=== PATIENT | male | born 1955 | race African-American/Black ===

== ENCOUNTER 2017-09-11 08:30 | Day surgery (SDC) | payer OTHER ==
[2017-09-06 16:54] VITALS: BMI 34.2
[2017-09-11] MEDS ORDERED: PROPOFOL 20 ML ONE ×3 (08:53→09:58)
[2017-09-11 09:03] VITALS: TEMP 98.2
[2017-09-11] MEDS ORDERED: LIDOCAINE HCL/PF 2% SDV 5ML VIAL ONE (09:58)
[2017-09-11 13:41] VITALS: BP 111/84; PULSE 69
--- NOTE | 2017-09-12 16:03 | PATH ---
Surgical Pathology Report Patient Name: ALVAREZ PEGUERO [facility]. Rec. #: [id number] /Age/Gender: 1955 (Age: 61) / M Account: [id number] Location: [facility]OSCOPY Taken: 09/11/2017 Received: 09/11/2017 Reported: 09/12/2017 Physicians: Chante Richards M.D. Specimen(s) Received A: SIGMOID B: RECTOSIGMOID JUNCTION Clinical History Preoperative diagnosis: Rule out colon cancer Postoperative diagnosis: Polyps Final Diagnosis A. SIGMOID, BIOPSY: HYPERPLASTIC POLYP. B. RECTOSIGMOID JUNCTION, BIOPSY: HYPERPLASTIC POLYP. Electronically Signed Denise Farrar M.D. Gross Description A. Received in formalin, labeled "sigmoid" is a mahoney, irregular portion of soft tissue measuring 0.5 cm. in greatest dimension. The specimen is submitted in toto in one cassette. B. Received in formalin, labeled "rectosigmoid junction" are 4 mahoney, irregular portions of soft tissue ranging from 0.2-0.6 cm. in greatest dimension. The specimens are submitted in toto in one cassette. 09/11/2017 saudi09/11/2017
== END 2017-09-11 11:25 | disposition home or self-care (01) ==
LOC: FASU-ENDO 08:30
PROVIDERS: ATTEND Internal Medicine Gastroenterology
PROC: 0DBN8ZX Excision of Sigmoid Colon, Via Natural or Artificial Opening Endoscopic, Diagnostic (ICD-10-PCS; principal; 2017-09-11 10:07)
DX: Z86.010 Personal history of colon polyps (principal); D12.7 Benign neoplasm of rectosigmoid junction; D12.5 Benign neoplasm of sigmoid colon; K64.2 Third degree hemorrhoids; K57.30 Diverticulosis of large intestine without perforation or abscess without bleeding
CPT/HCPCS: 88305-TC

== ENCOUNTER 2017-12-23 15:10 | Inpatient (IN) | payer OTHER ==
--- NOTE | 2017-12-23 15:38 | PDOC ---
Rapid Medical Evaluation Time Seen by Provider: 12/23/17 15:36 Medical Evaluation: Allergies Allergy/AdvReac Type Severity Reaction Status Date / Time No Known Allergies Allergy Verified 12/23/17 15:36 12/23/17 15:36 The patient presents with a chief complaint of: dyspnea I have performed a brief in-person evaluation of this patient. Pertinent physical exam findings: vss, mildly dyspnea, wheezy cough, irreg pulse I have ordered the following: labs, ekg The patient will proceed to the ED for further evaluation. 12/23/17 15:42 Discharge Disposition - Referrals Referrals: Peña Wu MD [Primary Care Provider] - - Patient Instructions - Post Discharge Activity
[2017-12-23] MEDS ORDERED: dilTIAZem HCL 125 MG/25 ML - 25 ML VIAL ONE ×3 (16:05→22:16)
[2017-12-23 16:17] LABS: BASO % 0.8 % (0-2.0); HEMATOCRIT 45.9 % (35.4-49); HEMOGLOBIN 15.2 GM/dL (11.7-16.9); LYMPH % 15.2 % (8-40); MCH 24.7 pg (25.7-33.7); MCHC 33.2 g/dl (32.0-35.9); MEAN CELL VOLUME 74.3 fl (80-96); MONO % 13.5 % (3.8-10.2); NEUT % 69.5 % (42.8-82.8); PLATELET COUNT 281 K/MM3 (134-434); RBC 6.17 M/mm3 (4.00-5.60); RDW 15.2 % (11.9-15.9); WHITE BLOOD COUNT 7.5 K/mm3 (4.0-10.0)
[2017-12-23] MEDS ORDERED: dilTIAZem HCL 30 MG TABLET (FP) ONE (16:21)
[2017-12-23] MEDS ORDERED: dilTIAZem HCL 50 MG/10 ML - 10 ML VIAL IVPUSH ONE ×4 (16:25→17:15)
[2017-12-23] MEDS ORDERED: dilTIAZem HCL 30 MG TABLET (FP) PO ONE (16:25)
[2017-12-23] MEDS ORDERED: dilTIAZem HCL 50 MG/10 ML - 10 ML VIAL IVPUSH PRN (16:25)
[2017-12-23 16:45] LABS: INR 1.18 (0.82-1.09); PROTHROMBIN TIME (PATIENT) 13.3 SEC (9.98-11.88)
[2017-12-23 16:48] LABS: ACTIVATED PTT 28.9 SECONDS (26.9-34.4)
[2017-12-23 17:01] LABS: ALBUMIN 3.5 g/dl (3.4-5.0); ANION GAP 8 (8-16); BILIRUBIN,TOTAL 0.7 mg/dL (0.2-1.0); BLOOD UREA NITROGEN 20 mg/dL (7-18); CHLORIDE 106 mmol/L (98-107); CO2 28 mmol/L (21-32); CREATININE 1.4 mg/dL (0.7-1.3); GLUCOSE,RANDOM 106 mg/dL (74-106); SGPT/ALT 54 U/L (12-78); SODIUM 142 mmol/L (136-145); TOT PROT 7.9 g/dl (6.4-8.2)
[2017-12-23 17:04] LABS: ALK PHOS 104 U/L (45-117)
--- NOTE | 2017-12-23 17:07 | PDOC ---
Attending Attestation - Resident Resident Name: JetNorman stewart - HPI HPI: 12/23/17 17:02 Pt presents to the ED complaining of shortness of breath that has been intermittent for two days. Shortness of breath is worse with exertion and laying flat. Denies fever or cough. Denies prior history of ACS, a fib or CHF. Reports intermittent palpitations for the last month. 12/23/17 17:04 - Physicial Exam PE: 12/23/17 17:04 Agree with resident exam. Patient is alert and oriented x 3 in no acute distress. Lungs are clear. Heart rate is irregular and tachycardic. - Medical Decision Making 12/23/17 17:05 Pt presents to the ED complaining of shortness of breath and palpitations. Found to be in a fib on arrival to the ED--improved after treatment with IV cardizem. Will admit to obs for new onset A fib.
[2017-12-23 17:14] LABS: POTASSIUM 3.3 mmol/L (3.5-5.1); SGOT/AST 39 U/L (15-37)
--- NOTE | 2017-12-23 17:15 | PDOC ---
History of Present Illness - General Chief Complaint: Irregular Heart Beat Stated Complaint: SOB, ABD PAIN (PCP SENT) Time Seen by Provider: 12/23/17 15:36 History Source: Patient Exam Limitations: No Limitations - History of Present Illness Initial Comments: 12/23/17 17:11 Patient is a 62M with history of HTN here today complaining of shortness of breath. He states that he's had palpitations on and off for the past month. Denies chest pain, history of blood clots and leg swelling. He states that he's had a cough without fever and chills. He denies history of cardiac issues. He denies trying any medication. Past History - Past Medical History Allergies/Adverse Reactions: Allergies Allergy/AdvReac Type Severity Reaction Status Date / Time No Known Allergies Allergy Verified 12/23/17 15:36 Home Medications: Ambulatory Orders Amlodipine Besylate 10 mg PO DAILY 09/06/17 Losartan Potassium 50 mg PO DAILY 09/11/17 Anemia: No Asthma: No Cancer: Yes (PROSTATE 2005) Cardiac Disorders: No CVA: No COPD: No CHF: No Dementia: No Diabetes: No GI Disorders: No Disorders: No HTN: Yes Hypercholesterolemia: No Liver Disease: No Seizures: No Thyroid Disease: No - Surgical History Abdominal Surgery: Yes (HERNIA REPAIR 2009) Appendectomy: No Cardiac Surgery: No Cholecystectomy: No Lung Surgery: No Neurologic Surgery: No Orthopedic Surgery: No - Immunization History Immunization Up to Date: Yes - Suicide/Smoking/Psychosocial Hx Smoking History: Former smoker Have you smoked in the past 12 months: No If you are a former smoker, when did you quit?: 1989 Information on smoking cessation initiated: No Hx Alcohol Use: Yes (weekends) Drug/Substance Use Hx: No Substance Use Type: None Hx Substance Use Treatment: No Review of Systems - Review of Systems Comments:: 12/23/17 17:24 GENERAL/CONSTITUTIONAL: No fever or chills. No weakness. HEAD, EYES, EARS, NOSE AND THROAT: No change in vision. No sore throat. CARDIOVASCULAR: No chest pain. Positive for shortness of breath RESPIRATORY: Positive for cough. Negative for wheezing, or hemoptysis. GASTROINTESTINAL: No nausea, vomiting, diarrhea or constipation. GENITOURINARY: No dysuria, frequency, or change in urination. MUSCULOSKELETAL: No joint or muscle swelling or pain. No neck or back pain. SKIN: No rash NEUROLOGIC: No headache, vertigo, loss of consciousness, or change in strength/ sensation. ENDOCRINE: No increased thirst. No abnormal weight change HEMATOLOGIC/LYMPHATIC: No anemia, easy bleeding, or history of blood clots. *Physical Exam - Vital Signs Last Vital Signs Temp Pulse Resp BP Pulse Ox 98.0 F 103 H 20 130/100 94 L 12/23/17 15:36 12/23/17 16:34 12/23/17 16:34 12/23/17 16:34 12/23/17 16:34 - Physical Exam Comments: 12/23/17 17:29 GENERAL: Awake, alert, and fully oriented, in no acute distress HEAD: No signs of trauma, normocephalic, atraumatic EYES: PERRLA, EOMI, sclera anicteric, conjunctiva clear ENT: Auricles normal inspection, hearing grossly normal, nares patent, oropharynx clear without exudates. Moist mucosa NECK: Normal ROM, supple, no lymphadenopathy, JVD, or masses LUNGS: No distress, speaks full sentences, clear to auscultation bilaterally HEART: Tachycardic, no murmurs, rubs or gallops, peripheral pulses normal and equal bilaterally. ABDOMEN: Soft, nontender, normoactive bowel sounds. No guarding, no rebound. No masses EXTREMITIES: Normal inspection, Normal range of motion, trace edema bilaterally. No clubbing or cyanosis. NEUROLOGICAL: Cranial nerves II through XII grossly intact. Normal speech, normal gait, no focal sensorimotor deficits SKIN: Warm, Dry, normal turgor, no rashes or lesions noted. ED Treatment Course - LABORATORY CBC & Chemistry Diagram: 12/23/17 16:10 12/23/17 16:10 - ADDITIONAL ORDERS Additional order review: Laboratory Results 12/23/17 16:10 PT with INR 13.30 H INR 1.18 H PTT (Actin FS) 28.9 12/23/17 16:10 RBC 6.17 H MCV 74.3 L MCHC 33.2 RDW 15.2 MPV 10.0 D Neutrophils % 69.5 Lymphocytes % 15.2 Monocytes % 13.5 H Eosinophils % 1.0 Basophils % 0.8 - Medications Given in the ED: ED Medications Discontinued Medications Generic Name Dose Route Start Last Admin Trade Name Freq PRN Reason Stop Dose Admin Diltiazem HCl 30 mg 12/23/17 16:25 12/23/17 16:31 Cardizem - PO 12/23/17 16:26 30 mg ONCE ONE Administration Diltiazem HCl 10 mg 12/23/17 16:25 12/23/17 16:20 Cardizem Injection - IVPUSH 12/23/17 16:26 10 mg ONCE ONE Administration Diltiazem HCl 10 mg 12/23/17 16:26 12/23/17 16:00 Cardizem Injection - IVPUSH 12/23/17 16:27 10 mg ONCE ONE Administration Medical Decision Making - Critical Care Time Total Critical Care Time (minutes): 60 Critical Care Statement: The care of this patient involved high complexity decision making to prevent further life threatening deterioration of the patient 's condition and/or to evaluate & treat vital organ system(s) failure or risk of failure. - Medical Decision Making 12/23/17 17:30 Patient is a 62M with history of HTN here today complaining of shortness of breath. Found to be in afib with RVR in triage. Initial EKG shows afib with RVR with rate of 119bpm. Large Q waves in anterior leads, new when compared to EKG from 02/05. Questionable ST changes in V2/V3. Diltiazem 10mg x2 given. Rate dropped to 90s-100s. Given 30mg of PO dilt Follow up EKG shows afib with rate of 102. Large q waves in anterior leads still present, st changes improved, appears now to be repolarization. Normal QRS /DC/QTc intervals. Posterior EKG done due to Q wave changes in anterior leads. V3, V4, V5 = V7, V8 , V9. Shows afib with rate of 107. No st elevations/depression. Normal QRS/DC/ QTc. Patient's rate spiked to 130, given another 10mg of diltiazem. Rates in 90s to 100s. Will continue to monitor. Will admit for new onset afib and ischemic changes in EKGs. 12/23/17 17:46 Laboratory Tests 12/23/17 12/23/17 12/23/17 16:10 16:10 16:10 WBC 7.5 Hgb 15.2 Hct 45.9 Plt Count 281 D INR 1.18 H BUN 20 H D Creatinine 1.4 H D Troponin I 0.03 CBC normal. INR normal. CMP reassuring. Troponin detectable but below threshold. CXR shows pulmonary vascular congestion and small pleural effusions bilaterally. 12/23/17 20:18 Patient tachypneic after walking to bathroom, wheezes bilaterally. Given duoneb. patient improving. *DC/Admit/Observation/Transfer Diagnosis at time of Disposition: New onset a-fib - Discharge Dispostion Condition at time of disposition: Stable Admit: Yes - Referrals - Patient Instructions - Post Discharge Activity
--- NOTE | 2017-12-23 18:35 | HP ---
CHIEF COMPLAINT: Shortness of breath PCP: Dr. Wu HISTORY OF PRESENT ILLNESS: 62 year-old male with a PMH significant for HTN, prostate cancer s/p prostatectomy (2007), and brain AVM s/p repair (2000). Patient presented to the ED today with complaints of SOB and palpitations x 1 month. Patient noticed a 10 -pound weight gain over the past week and his SOB has gotten worse. He has been unable to lie flat and he has noticed decrease exercise tolerance. Patient denies chest pain, lower extremity edema. ER course was notable for: (1) ECG: afib @119bpm (2) K 3.3 Recent Travel: No PAST MEDICAL HISTORY: Hypertension Prostate cancer Brain AVM PAST SURGICAL HISTORY: AVM stereotactic surgery 2000 Prostatectomy 2005 Hernia repair 2009 Social History: Smoking:d quit 20 years ago Alcohol: weekends Drugs: no Family History: mother 86 CHF; father 80 unknown causes but had a PPM ; brother with AICD; brother with HTN Allergies No Known Allergies Allergy (Verified 12/23/17 15:36) HOME MEDICATIONS: Home Medications Medication Instructions Recorded Amlodipine Besylate 10 mg PO DAILY 09/06/17 Losartan Potassium 50 mg PO DAILY 09/11/17 REVIEW OF SYSTEMS CONSTITUTIONAL: Absent: fever, chills, diaphoresis, generalized weakness, malaise, loss of appetite, weight change HEENT: Absent: rhinorrhea, nasal congestion, throat pain, throat swelling, difficulty swallowing, mouth swelling, ear pain, eye pain, visual changes CARDIOVASCULAR: +palpitations, SOB, weight gain Absent: chest pain, syncope, palpitations, irregular heart rate, lightheadedness , peripheral edema RESPIRATORY: Absent: cough, shortness of breath, dyspnea with exertion, orthopnea, wheezing, stridor, hemoptysis GASTROINTESTINAL: Absent: abdominal pain, abdominal distension, nausea, vomiting, diarrhea, constipation, melena, hematochezia GENITOURINARY: Absent: dysuria, frequency, urgency, hesitancy, hematuria, flank pain, genital pain MUSCULOSKELETAL: Absent: myalgia, arthralgia, joint swelling, back pain, neck pain SKIN: Absent: rash, itching, pallor HEMATOLOGIC/IMMUNOLOGIC: Absent: easy bleeding, easy bruising, lymphadenopathy, frequent infections ENDOCRINE: Absent: unexplained weight gain, unexplained weight loss, heat intolerance, cold intolerance NEUROLOGIC: Absent: headache, focal weakness or paresthesias, dizziness, unsteady gait, seizure, mental status changes, bladder or bowel incontinence PSYCHIATRIC: Absent: anxiety, depression, suicidal or homicidal ideation, hallucinations. PHYSICAL EXAMINATION Vital Signs - 24 hr 12/23/17 12/23/17 12/23/17 15:36 16:00 16:20 Temperature 98.0 F Pulse Rate 110 H Pulse Rate [ 150 H 124 H Left] Respiratory 18 18 18 Rate Blood Pressure 128/81 Blood Pressure 117/94 111/88 [Right] O2 Sat by Pulse 95 95 Oximetry (%) 12/23/17 12/23/17 12/23/17 16:25 16:34 17:18 Temperature Pulse Rate Pulse Rate [ 103 H 115 H Left] Respiratory 20 18 Rate Blood Pressure Blood Pressure 130/100 122/97 [Right] O2 Sat by Pulse 95 94 L 95 Oximetry (%) GENERAL: Awake, alert, and fully oriented HEAD: Normal with no signs of trauma. EYES: Pupils equal, round and reactive to light, extraocular movements intact, sclera anicteric, conjunctiva clear. No lid lag. EARS, NOSE, THROAT: Ears normal, nares patent, oropharynx clear without exudates. Moist mucous membranes. NECK: Normal range of motion, supple without lymphadenopathy, JVD, or masses. LUNGS: Dyspneic with speaking; CTA HEART: Irregular, rapid, S1 and S2 ABDOMEN: Soft, nontender, not distended, normoactive bowel sounds, no guarding, no rebound, no masses. MUSCULOSKELETAL: Normal range of motion at all joints. No bony deformities or tenderness. No CVA tenderness. UPPER EXTREMITIES: 2+ pulses, warm, well-perfused. No cyanosis. No clubbing. No peripheral edema. LOWER EXTREMITIES: 2+ pulses, warm, well-perfused. No calf tenderness. 3+ bilateral edema NEUROLOGICAL: Cranial nerves II-XII intact. Normal speech. Laboratory Results - last 24 hr 12/23/17 12/23/17 12/23/17 16:10 16:10 16:10 WBC 7.5 RBC 6.17 H Hgb 15.2 Hct 45.9 MCV 74.3 L MCH 24.7 L MCHC 33.2 RDW 15.2 Plt Count 281 D MPV 10.0 D Neutrophils % 69.5 Lymphocytes % 15.2 Monocytes % 13.5 H Eosinophils % 1.0 Basophils % 0.8 PT with INR 13.30 H INR 1.18 H PTT (Actin FS) 28.9 Sodium 142 Potassium 3.3 L Chloride 106 Carbon Dioxide 28 Anion Gap 8 BUN 20 H D Creatinine 1.4 H D Creat Clearance w eGFR 51.35 Random Glucose 106 D Calcium 9.0 Total Bilirubin 0.7 D AST 39 H ALT 54 D Alkaline Phosphatase 104 Troponin I 0.03 Total Protein 7.9 Albumin 3.5 ASSESSMENT/PLAN: 62 year-old male with a PMH significant for HTN, prostate cancer s/p prostatectomy and brain AVM s/p repair. Patient presented to the ED today with complaints of SOB and palpitations x 1 month. Patient noticed a 10-pound weight gain over the past week and his SOB has gotten worse. Patient denies chest pain , lower extremity edema. Atrial fibrillation with RVR --rate in 140s after cardizem IVP x 3 and PO dose --symptomatic, SOB, 92% on NC --start cardizem drip --enoxaparin BID Heart failure, NOS --patient reports 10-pound weight gain over past week --Lasix IVP 40mg BID --PA & lateral pending --echo pending --cardiology consult Elevated creatinine --Cr 1.4 on admission, 1.3 today, baseline 1.1 --continue to hold losartan Hypertension --presently normotensive --hold amlodipine Hypokalemia --repleted FEN Fluids: PO intake adequate Electrolytes: replete as indicated Nutrition: low sodium DVT prophylaxis: enoxaparin Physical therapy Dispo: continues to require inpatient care. Full code. Visit type - Emergency Visit Emergency Visit: Yes ED Registration Date: 12/23/17 Care time: The patient presented to the Emergency Department on the above date and was hospitalized for further evaluation of their emergent condition. - New Patient This patient is new to me today: Yes Date on this admission: 12/24/17 - Critical Care Critical Care patient: No Hospitalist Screening - Colonoscopy Questionnaire Colonoscopy Questionnaire: Colonoscopy Questionnaire - Patient: 50 - 75 years old and never had a screening colonoscopy: Unknown History of colon or rectal polyps, or CA: Unknown History of IBD, Crohn's disease or UC: Unknown History of abdominal radiation therapy as a child: Unknown - Relative: 1 with colon or rectal CA, or polyps at age 60 or younger: Unknown Colon or rectal CA diagnosed at age 45 or younger: Unknown Multiple relatives with colon or rectal CA: Unknown - Outcome: Screening Result: Negative Screen
[2017-12-23] MEDS ORDERED: FUROSEMIDE 40 MG/4 ML INJECTABLE VIAL IVPUSH SCH (18:45)
[2017-12-23] MEDS ORDERED: ALBUTEROL SO4 2.5/IPRATROPIUM 0.5 INH SOL 3 ML VIAL.NEB. NEB ONE ×2 (20:09→20:15)
[2017-12-23] MEDS ORDERED: POTASSIUM CHLORIDE TABS 20 MEQ TABLET.ER (FP) PO ONE (20:15)
[2017-12-23] MEDS ORDERED: FUROSEMIDE 40 MG/4 ML INJECTABLE VIAL ONE ×2 (20:16→22:16)
[2017-12-23] MEDS: POTASSIUM CHLORIDE TABS 20 MEQ TABLET.ER (FP) PO SCH (20:46)
[2017-12-23] MEDS ORDERED: FUROSEMIDE 40 MG/4 ML INJECTABLE VIAL IVPUSH ONE (21:57)
[2017-12-23] MEDS ORDERED: DILTIAZEM INJECTION 125 MG in SODIUM CHLORIDE 100 ML IVPB SCH (22:00)
[2017-12-23] MEDS ORDERED: dilTIAZem HCL 50 MG/10 ML - 10 ML VIAL ONE (22:16)
[2017-12-23] MEDS ORDERED: ENOXAPARIN NA (PORCINE) 60 MG/0.6 ML DISP.SYRIN SQ ONE (22:17)
[2017-12-23] MEDS: ENOXAPARIN NA (PORCINE) 120 MG/0.8 ML DISP.SYRIN SQ SCH (22:41)
[2017-12-24] MEDS: POTASSIUM CHLORIDE TABS 20 MEQ TABLET.ER (FP) PO SCH ×5 (02:45→20:26)
[2017-12-24 06:16] LABS: BASO % 0.4 % (0-2.0); EOS % 0.1 % (0-4.5); HEMATOCRIT 40.9 % (35.4-49); HEMOGLOBIN 13.7 GM/dL (11.7-16.9); MCHC 33.6 g/dl (32.0-35.9); MEAN CELL VOLUME 74.4 fl (80-96); MEAN PLT VOLUME 10.3 fl (7.5-11.1); MONO % 9.5 % (3.8-10.2); PLATELET COUNT 258 K/MM3 (134-434); RDW 15.4 % (11.9-15.9); WHITE BLOOD COUNT 10.7 K/mm3 (4.0-10.0)
[2017-12-24] MEDS: FUROSEMIDE 40 MG/4 ML INJECTABLE VIAL IVPUSH SCH ×2 (06:23→14:25)
[2017-12-24] MEDS ORDERED: POTASSIUM CHLORIDE TABS 20 MEQ TABLET.ER (FP) PO ONE ×2 (06:24→07:50)
[2017-12-24] MEDS ORDERED: FUROSEMIDE 40 MG/4 ML INJECTABLE VIAL ONE (06:24)
[2017-12-24 06:32] LABS: CHLORIDE 109 mmol/L (98-107); POTASSIUM 3.1 mmol/L (3.5-5.1); SODIUM 145 mmol/L (136-145)
[2017-12-24 06:41] LABS: ALBUMIN 3.2 g/dl (3.4-5.0); ALK PHOS 89 U/L (45-117); ANION GAP 8 (8-16); BILIRUBIN,TOTAL 0.9 mg/dL (0.2-1.0); BLOOD UREA NITROGEN 18 mg/dL (7-18); CALCIUM 8.2 mg/dL (8.5-10.1); CO2 28 mmol/L (21-32); CREATININE 1.3 mg/dL (0.7-1.3); GLUCOSE,RANDOM 105 mg/dL (74-106); MAGNESIUM 1.6 mg/dL (1.8-2.4); PHOSPHOROUS 3.5 mg/dL (2.5-4.9); SGOT/AST 27 U/L (15-37); SGPT/ALT 43 U/L (12-78)
[2017-12-24] MEDS ORDERED: DILTIAZEM INJECTION 125 MG in DEXTROSE 5%-WATER - 100 ML IVPB SCH (07:30)
--- NOTE | 2017-12-24 09:30 | CON.CARD ---
Consult Consult Specialty:: Cardiology Referred by:: Evangelista Reason for Consultation:: afib elevated constantine, chf - History of Present Illness Chief Complaint: sob History of Present Illness: He is a 62 year-old male with a history of HTN, prostate cancer s/p prostatectomy (2007), brain AVM s/p repair (2000) who was admitted with complaints of SOB and palpitations x 1 month, weight gain, edema. No chest pain , orthopnea or PND. No palpitations, dizziness or syncope. Baseline exercise tolerance is good. Found to be in atrial fibrillation with RVR started on IV dilt. Also noted with elevated TnI. Denies chest pain. Elevated BNP getting IV lasix. Echo pending. - History Source History Provided By: Patient, Medical Record - Past Medical History Cardio/Vascular: Yes: HTN Heme/Onc: Yes: Cancer - Alcohol/Substance Use Hx Alcohol Use: Yes (weekends) - Smoking History Smoking history: Former smoker Have you smoked in the past 12 months: No If you are a former smoker, when did you quit?: 1989 Home Medications - Allergies Allergies/Adverse Reactions: Allergies Allergy/AdvReac Type Severity Reaction Status Date / Time No Known Allergies Allergy Verified 12/23/17 15:36 - Home Medications Home Medications: Ambulatory Orders Amlodipine Besylate 10 mg PO DAILY 09/06/17 Losartan Potassium 50 mg PO DAILY 09/11/17 Review of Systems - Review of Systems Constitutional: reports: No Symptoms Eyes: reports: No Symptoms HENT: reports: No Symptoms Neck: reports: No Symptoms Cardiovascular: reports: Shortness of Breath Respiratory: reports: SOB Gastrointestinal: reports: No Symptoms Genitourinary: reports: No Symptoms Breasts: reports: No Symptoms Reported Musculoskeletal: reports: No Symptoms Integumentary: reports: No Symptoms Neurological: reports: No Symptoms - Risk Factors Known Risk Factors: Yes: Hypertension Vital Signs: Vital Signs Temperature 98.6 F 12/24/17 08:42 Pulse Rate 94 H 12/24/17 08:42 Respiratory Rate 16 12/24/17 08:42 Blood Pressure 116/70 12/24/17 08:42 O2 Sat by Pulse Oximetry (%) 93 L 12/24/17 08:42 Constitutional: Yes: No Distress, Calm Eyes: Yes: Conjunctiva Clear, EOM Intact HENT: Yes: Atraumatic, Normocephalic Neck: Yes: Supple, Trachea Midline Respiratory: Yes: Rales (bilat bases) Gastrointestinal: Yes: Normal Bowel Sounds, Soft Renal/: Yes: WNL Cardiovascular: Yes: Pulse Irregular JVD: Yes Carotid Bruit: No PMI: Non-Displaced Heart Sounds: Yes: S1, S2 Murmur: Yes: Systolic Murmur, Grade 2 Musculoskeletal: Yes: WNL Extremities: Yes: WNL Edema: Yes Edema: LLE: Trace, RLE: Trace Peripheral Pulses WNL: Yes - Other Data Labs, Other Data: CBC, BMP 12/24/17 05:55 12/24/17 05:55 INR, PTT INR 1.18 (0.82-1.09) H 12/23/17 16:10 Troponin, BNP 12/23/17 12/23/17 12/23/17 16:10 22:45 22:45 Troponin I 0.03 Cancelled B-Natriuretic Peptide 1759.30 H 12/23/17 12/24/17 12/24/17 22:45 05:55 08:10 Troponin I 0.04 D 0.07 H D Cancelled B-Natriuretic Peptide 12/24/17 08:10 Troponin I 0.07 H B-Natriuretic Peptide Troponin, BNP 12/23/17 12/23/17 12/23/17 16:10 22:45 22:45 Troponin I 0.03 Cancelled B-Natriuretic Peptide 1759.30 H 12/23/17 12/24/17 12/24/17 22:45 05:55 08:10 Troponin I 0.04 D 0.07 H D Cancelled B-Natriuretic Peptide 12/24/17 08:10 Troponin I 0.07 H B-Natriuretic Peptide afib with RVR old ASMI Echo: Pending Imaging - Results Chest X-ray: Report Reviewed (chf, small bilat pl effusions.) EKG: Report Reviewed (af rvr old asmi) Problem List - Problems (1) New onset a-fib Assessment/Plan: Echo ordered. TFT's. Change IV diltiazem to PO dilt 30 q6h. Full dose enoxaparin 1 mg/kg bid, will use eliquis when stable. Code(s): I48.91 - UNSPECIFIED ATRIAL FIBRILLATION (2) Elevated troponin Assessment/Plan: Most likely demand ischemia. Needs eventual ischemia workup but needs rate control and echo first. add baby aspirin. Code(s): R74.8 - ABNORMAL LEVELS OF OTHER SERUM ENZYMES (3) Essential (primary) hypertension Assessment/Plan: Hold home medications for now. change to dilt 30 q6h, titrate as tolerated by bp and HR Code(s): I10 - ESSENTIAL (PRIMARY) HYPERTENSION (4) CHF (congestive heart failure) Assessment/Plan: lasix 40 mg IV daily daily wts fluid and salt restriction. echo pending. Code(s): I50.9 - HEART FAILURE, UNSPECIFIED Qualifiers: Heart failure type: diastolic Heart failure chronicity: acute Qualified Code(s): I50.31 - Acute diastolic (congestive) heart failure
[2017-12-24] MEDS: dilTIAZem HCL 30 MG TABLET (FP) PO SCH ×4 (09:56→23:05)
--- NOTE | 2017-12-24 10:10 | EKG ---
Test Reason : Blood Pressure : / mmHG Vent. Rate : 119 BPM Atrial Rate : 267 BPM P-R Int : 000 ms QRS Dur : 102 ms QT Int : 360 ms P-R-T Axes : 000 -41 113 degrees QTc Int : 506 ms POOR DATA QUALITY, INTERPRETATION MAY BE ADVERSELY AFFECTED ATRIAL FIBRILLATION WITH RAPID VENTRICULAR RESPONSE LEFT AXIS DEVIATION ANTERIOR INFARCT (CITED ON OR BEFORE 14-FEB-2016) ABNORMAL ECG WHEN COMPARED WITH ECG OF 14-FEB-2016 07:38, ATRIAL FIBRILLATION HAS REPLACED SINUS RHYTHM Confirmed by Mason Velazquez MD ([id number]) on 12/24/2017 10:10:38 AM Referred By: Confirmed By:Mason Velazquez MD
--- NOTE | 2017-12-24 10:10 | EKG ---
Test Reason : Blood Pressure : / mmHG Vent. Rate : 102 BPM Atrial Rate : 122 BPM P-R Int : 000 ms QRS Dur : 098 ms QT Int : 362 ms P-R-T Axes : 000 -39 156 degrees QTc Int : 471 ms ATRIAL FIBRILLATION WITH RAPID VENTRICULAR RESPONSE LEFT AXIS DEVIATION ANTEROSEPTAL INFARCT (CITED ON OR BEFORE 14-FEB-2016) ABNORMAL ECG WHEN COMPARED WITH ECG OF 23-DEC-2017 15:53, NO SIGNIFICANT CHANGE WAS FOUND Confirmed by Mason Velazquez MD ([id number]) on 12/24/2017 10:10:29 AM Referred By: Confirmed By:Mason Velazquez MD
[2017-12-24] MEDS ORDERED: PT OWN MED DRAWER 7, Y5N ONE (10:16)
[2017-12-24] MEDS: ENOXAPARIN NA (PORCINE) 120 MG/0.8 ML DISP.SYRIN SQ SCH ×2 (10:22→23:05)
[2017-12-24] MEDS: POLYETHYLENE GLYCOL 3350 119 GM BTL PO SCH ×2 (10:24→23:05)
[2017-12-24 12:05] VITALS: BMI 34.9
[2017-12-24] MEDS ORDERED: dilTIAZem HCL 30 MG TABLET (FP) ONE (12:18)
--- NOTE | 2017-12-24 15:27 | PN ---
Physical Exam: SUBJECTIVE: Patient seen and examined at bedside. Dr. Velazquez present. present. OBJECTIVE: Vital Signs Period Temp Pulse Resp BP Sys/Alexandra Pulse Ox Last 24 Hr 98.0 F-98.6 F 83-150 16-22 107-131/70-100 16-95 GENERAL: Awake, alert, and fully oriented. LUNGS: Bibasilar crackles; able to speak in complete sentences, no dyspnea observed, no accessory muscle use HEART: Irregular, rapid, S1 and S2 ABDOMEN: Soft, nontender, not distended, normoactive bowel sounds, no guarding, no rebound, no masses. MUSCULOSKELETAL: Normal range of motion at all joints. No bony deformities or tenderness. No CVA tenderness. UPPER EXTREMITIES: 2+ pulses, warm, well-perfused. No cyanosis. No clubbing. No peripheral edema. LOWER EXTREMITIES: 2+ pulses, warm, well-perfused. No calf tenderness. 3+ bilateral edema NEUROLOGICAL: Cranial nerves II-XII intact. Normal speech. Laboratory Results - last 24 hr 12/23/17 12/23/17 12/23/17 16:10 16:10 16:10 WBC 7.5 RBC 6.17 H Hgb 15.2 Hct 45.9 MCV 74.3 L MCH 24.7 L MCHC 33.2 RDW 15.2 Plt Count 281 D MPV 10.0 D Neutrophils % 69.5 Lymphocytes % 15.2 Monocytes % 13.5 H Eosinophils % 1.0 Basophils % 0.8 PT with INR 13.30 H INR 1.18 H PTT (Actin FS) 28.9 Sodium 142 Potassium 3.3 L Chloride 106 Carbon Dioxide 28 Anion Gap 8 BUN 20 H D Creatinine 1.4 H D Creat Clearance w eGFR 51.35 Random Glucose 106 D Calcium 9.0 Phosphorus Magnesium Total Bilirubin 0.7 D AST 39 H ALT 54 D Alkaline Phosphatase 104 Troponin I 0.03 B-Natriuretic Peptide Total Protein 7.9 Albumin 3.5 12/23/17 12/23/17 12/23/17 16:10 22:45 22:45 WBC RBC Hgb Hct MCV MCH MCHC RDW Plt Count MPV Neutrophils % Lymphocytes % Monocytes % Eosinophils % Basophils % PT with INR INR PTT (Actin FS) Sodium Potassium Chloride Carbon Dioxide Anion Gap BUN Creatinine Creat Clearance w eGFR Random Glucose Calcium Phosphorus Magnesium 2.2 Total Bilirubin AST ALT Alkaline Phosphatase Troponin I Cancelled B-Natriuretic Peptide 1759.30 H Total Protein Albumin 12/23/17 12/24/17 12/24/17 22:45 05:55 05:55 WBC 10.7 H D RBC 5.50 Hgb 13.7 Hct 40.9 MCV 74.4 L MCH 25.0 L MCHC 33.6 RDW 15.4 Plt Count 258 MPV 10.3 Neutrophils % 81.0 Lymphocytes % 9.0 D Monocytes % 9.5 Eosinophils % 0.1 D Basophils % 0.4 PT with INR INR PTT (Actin FS) Sodium 145 Potassium 3.1 L Chloride 109 H Carbon Dioxide 28 Anion Gap 8 BUN 18 Creatinine 1.3 Creat Clearance w eGFR 55.94 Random Glucose 105 Calcium 8.2 L Phosphorus 3.5 Magnesium 1.6 L D Total Bilirubin 0.9 D AST 27 D ALT 43 D Alkaline Phosphatase 89 Troponin I 0.04 D 0.07 H D B-Natriuretic Peptide Total Protein 7.0 Albumin 3.2 L 12/24/17 12/24/17 08:10 08:10 WBC RBC Hgb Hct MCV MCH MCHC RDW Plt Count MPV Neutrophils % Lymphocytes % Monocytes % Eosinophils % Basophils % PT with INR INR PTT (Actin FS) Sodium Potassium Chloride Carbon Dioxide Anion Gap BUN Creatinine Creat Clearance w eGFR Random Glucose Calcium Phosphorus Magnesium Total Bilirubin AST ALT Alkaline Phosphatase Troponin I Cancelled 0.07 H B-Natriuretic Peptide Total Protein Albumin Active Medications Generic Name Dose Route Start Last Admin Trade Name Freq PRN Reason Stop Dose Admin Diltiazem HCl 30 mg 12/24/17 09:45 12/24/17 12:17 Cardizem - PO 30 mg Q6HPO JHOAN Administration Docusate Sodium 300 mg 12/24/17 22:00 Colace - PO HS JHOAN Enoxaparin Sodium 120 mg 12/23/17 22:00 12/24/17 10:22 Lovenox - SQ 120 mg BID JHOAN Administration Furosemide 40 mg 12/24/17 06:00 12/24/17 14:25 Lasix Injection - IVPUSH 40 mg BIDLASIX JHOAN Administration Polyethylene Glycol 17 gm 12/24/17 10:00 12/24/17 10:24 Miralax (For Daily Use) - PO Not Given BID JHOAN Potassium Chloride 40 meq 12/24/17 08:00 12/24/17 14:25 K-Dur - PO 12/24/17 20:01 40 meq Q6H JHOAN Administration ASSESSMENT/PLAN: 62 year-old male with a PMH significant for HTN, prostate cancer s/p prostatectomy and brain AVM s/p repair. Patient presented to the ED today with complaints of SOB and palpitations x 1 month. Patient noticed a 10-pound weight gain over the past week and his SOB has gotten worse. Patient denies chest pain , lower extremity edema. Atrial fibrillation with RVR --rate in 110's today, improved --diltiazem 30mg q6h --enoxaparin BID; [id number] Score 2 Decompensated systolic heart failure --LV moderately to severely reduced, EF=30%; moderate to severe global hypokinesis; RV normal; LAE; mild to moderate MR; trace TR; trace PI --tachycardia-induced cardiomyopathy v. CAD --cardiology recommending cardiac cath when more stable --Lasix IVP 40mg BID --cardiology consult Elevated creatinine --Cr 1.4 on admission, 1.3 today, baseline 1.1 --continue to hold losartan Hypertension --presently normotensive --hold amlodipine Hypokalemia --repleted FEN Fluids: PO intake adequate Electrolytes: replete as indicated Nutrition: low sodium DVT prophylaxis: enoxaparin Physical therapy Dispo: continues to require inpatient care. Full code. Visit type - Emergency Visit Emergency Visit: Yes ED Registration Date: 12/23/17 Care time: The patient presented to the Emergency Department on the above date and was hospitalized for further evaluation of their emergent condition. - New Patient This patient is new to me today: No - Critical Care Critical Care patient: No
[2017-12-24] MEDS: DOCUSATE SODIUM 100 MG CAPSULE (FP) PO SCH (23:05)
[2017-12-25] MEDS: FUROSEMIDE 40 MG/4 ML INJECTABLE VIAL IVPUSH SCH ×2 (05:41→16:30)
[2017-12-25] MEDS: dilTIAZem HCL 30 MG TABLET (FP) PO SCH (05:41)
[2017-12-25 08:09] LABS: BASO % 0.5 % (0-2.0); EOS % 0.3 % (0-4.5); HEMATOCRIT 42.8 % (35.4-49); MCH 24.6 pg (25.7-33.7); MCHC 32.7 g/dl (32.0-35.9); MEAN CELL VOLUME 75.2 fl (80-96); MEAN PLT VOLUME 9.9 fl (7.5-11.1); MONO % 12.7 % (3.8-10.2); NEUT % 75.5 % (42.8-82.8); PLATELET COUNT 263 K/MM3 (134-434); RBC 5.69 M/mm3 (4.00-5.60); RDW 14.9 % (11.9-15.9); WHITE BLOOD COUNT 9.3 K/mm3 (4.0-10.0)
[2017-12-25 09:09] LABS: ALBUMIN 3.3 g/dl (3.4-5.0); ALK PHOS 96 U/L (45-117); ANION GAP 7 (8-16); BILIRUBIN,TOTAL 1.3 mg/dL (0.2-1.0); BLOOD UREA NITROGEN 20 mg/dL (7-18); CALCIUM 8.5 mg/dL (8.5-10.1); CHLORIDE 110 mmol/L (98-107); CO2 28 mmol/L (21-32); CREATININE 1.4 mg/dL (0.7-1.3); GLUCOSE,RANDOM 89 mg/dL (74-106); POTASSIUM 3.4 mmol/L (3.5-5.1); SGOT/AST 44 U/L (15-37); SGPT/ALT 53 U/L (12-78); SODIUM 145 mmol/L (136-145); TOT PROT 7.6 g/dl (6.4-8.2)
[2017-12-25] MEDS ORDERED: PT OWN MED DRAWER 7, Y5N ONE ×2 (09:31→21:05)
[2017-12-25] MEDS: ENOXAPARIN NA (PORCINE) 120 MG/0.8 ML DISP.SYRIN SQ SCH ×2 (09:40→21:09)
[2017-12-25] MEDS ORDERED: dilTIAZem HCL 30 MG TABLET (FP) PO ONE (10:00)
[2017-12-25] MEDS: dilTIAZem HCL 60 MG TABLET (FP) PO SCH ×3 (12:27→23:56)
--- NOTE | 2017-12-25 13:11 | PN ---
Progress Note (short form) - Note Progress Note: PULMONARY CONSULTATION DICTATED 12/25/17 IMP HYPOXEMIC RESPIRATORY FAILURE CHF CARDIOMYOPATHY ?ISCHEMIC,?VIRAL AFIB +TROPONIN LEFT HILAR PROMINENCE ? VASCULAR,?MASS H/O PROSTATE CA S/P RESECTION H/O BRAIN AVM HTN PLAN LASIX O2 TO MAINTAIN O2 SAT > 90% RATE CONTROL CHEST CT ? CARDIAC CATH TREND TROPONIN DAILY WT DR ALVAREZ Problem List - Problems (1) CHF (congestive heart failure) Code(s): I50.9 - HEART FAILURE, UNSPECIFIED Qualifiers: Heart failure type: diastolic Heart failure chronicity: acute Qualified Code(s): I50.31 - Acute diastolic (congestive) heart failure (2) Elevated troponin Code(s): R74.8 - ABNORMAL LEVELS OF OTHER SERUM ENZYMES (3) Essential (primary) hypertension Code(s): I10 - ESSENTIAL (PRIMARY) HYPERTENSION (4) Cardiomyopathy Code(s): I42.9 - CARDIOMYOPATHY, UNSPECIFIED (5) New onset a-fib Code(s): I48.91 - UNSPECIFIED ATRIAL FIBRILLATION (6) Acute respiratory failure with hypoxia Code(s): J96.01 - ACUTE RESPIRATORY FAILURE WITH HYPOXIA
--- NOTE | 2017-12-25 14:42 | CONS ---
DATE OF CONSULTATION: 12/25/2017 REFERRING PHYSICIAN: SOFI Levy HISTORY OF PRESENT ILLNESS: The patient is a 62-year-old Black male with a past medical history of hypertension, prostate CA, status post prostatectomy in 2007 performed at [facility] [place], history of brain AVM, status post repair in 2000, and a history of tobacco use, he quit approximately 20 years ago. He presents to the emergency room and transferred to [facility] with complaint of increasing shortness of breath for approximately 5 to 6 days. The patient states that for the past week or so he has gotten increasing shortness of breath and dyspnea on exertion and he also complained of increasing orthopnea and now he complains of chest pain and a little bit of chest tightness. He states that he is unable to lie flat and he is requiring more pillows to sleep. He also has occasional nocturnal wheezing. He denies any fevers or chills although he may have had a URI approximately 2 weeks ago. He states he has palpitations all of the time for many years and never sought any medical attention for it. Now on admission he was noted to be in a rapid atrial fibrillation. He also had a chest x-ray performed which showed mild pulmonary vascular congestion. He was admitted to telemetry for further monitoring. During hospitalization he was evaluated by Cardiology and underwent an echocardiogram which revealed an ejection fraction of 30%. He denies any history of cardiac disease. He states that 2 weeks prior to admission he was ambulating well without any shortness of breath ambulating up inclines as well as low to the ground. He has not had any cough or hemoptysis. He denies any weight loss or night sweats. He is unsure whether or not he had increasing lower extremity edema. He denies any chest pains. On admission he was started on IV Lasix with some clinical improvement. He was evaluated by Cardiology, as stated earlier, and they felt that the patient had the cardiomyopathy possibly ischemic for which a cardiac catheterization is recommended. The patient is still contemplating. PAST MEDICAL HISTORY: Includes hypertension, brain AVM, and prostate CA, status post resection. REVIEW OF SYSTEMS: Positive orthopnea, positive dyspnea on exertion. No cough, no hemoptysis. Positive chest tightness. No chest pain. Positive lower extremity edema. CURRENT MEDICATIONS: Include Lovenox, Cardizem, Colace, MiraLAX, and Lasix IV b.i.d. SOCIAL HISTORY: Currently denies any occupational exposures. History of tobacco use, quit 20 years ago. PHYSICAL EXAMINATION: General: The patient is a well-developed, well-nourished male, awake, alert, and in no acute distress. Vital Signs: Temperature is 98.2, heart rate is 95 and irregular, respiratory rate is 18, and oxygen saturation is 91% on room air on 4 L. HEENT: Normocephalic, atraumatic. Neck: Supple. Heart: Irregular, S1, S2. Chest: Diminished breath sounds bilaterally a few bibasilar crackles. Abdomen: Soft, bowel sounds are positive. Extremities: Edema 4+ bilaterally. LABORATORY DATA: BUN 20, creatinine 1.4, potassium 3.4. Troponin is 0.07. BNP is 17.59. WBC is 9.3, hemoglobin 14, hematocrit 42.8 with a platelet count of 263,000. INR is 1.18. Chest x-ray reveals a left hilar prominence, no opacities noted on the left. IMPRESSION: 1. Hypoxemic respiratory failure secondary to: A. Decompensated congestive heart failure secondary to cardiomyopathy possibly ischemic versus viral etiologies. 2. Atrial fibrillation. 3. Hypertension. 4. Prominent left hilum possible vascular, cannot rule out adenopathy versus mass. 5. History of prostate cancer. PLAN: Continue IV Lasix, daily weights, and supplemental oxygen. Chest CT and further cardiac workup as per Cardiology. We will follow up closely with you. TAMERA ALVAREZ M.D. [id number]
--- NOTE | 2017-12-25 15:01 | PN ---
Progress Note, Physician Chief Complaint: less sob, less edema tele af 90-110 History of Present Illness: He is a 62 year-old male with a history of HTN, prostate cancer s/p prostatectomy (2007), brain AVM s/p repair (2000) who was admitted with complaints of SOB and palpitations x 1 month, weight gain, edema. No chest pain , orthopnea or PND. No palpitations, dizziness or syncope. Baseline exercise tolerance is good. Found to be in atrial fibrillation with RVR started on IV dilt. Also noted with elevated TnI. Denies chest pain. Elevated BNP getting IV lasix. Echo EF 30% global HK, mild to moderate MR, mild TR ? hilar mass noted on CXR, getting CT chest. - Current Medication List Current Medications: Active Medications Diltiazem HCl (Cardizem -) 60 mg PO Q6HPO [facility] Last Admin: 12/25/17 12:27 Dose: 60 mg Docusate Sodium (Colace -) 300 mg PO HS [facility] Last Admin: 12/24/17 23:05 Dose: Not Given Enoxaparin Sodium (Lovenox -) 120 mg SQ BID [facility] Last Admin: 12/25/17 09:40 Dose: 120 mg Furosemide (Lasix Injection -) 40 mg IVPUSH BIDLASIX [facility] Last Admin: 12/25/17 05:41 Dose: 40 mg Polyethylene Glycol (Miralax (For Daily Use) -) 17 gm PO BID [facility] Last Admin: 12/24/17 23:05 Dose: Not Given - Objective Vital Signs: Vital Signs Temperature 98.2 F 12/25/17 05:45 Pulse Rate 95 H 12/25/17 05:45 Respiratory Rate 18 12/25/17 08:08 Blood Pressure 126/73 12/25/17 05:45 O2 Sat by Pulse Oximetry (%) 91 L 12/25/17 08:08 Constitutional: Yes: No Distress Eyes: Yes: EOM Intact HENT: Yes: Normocephalic Neck: Yes: Trachea Midline Cardiovascular: Yes: Tachycardia, Pulse Irregular Respiratory: Yes: Rales (bilat bases) Extremities: Yes: WNL Edema: Yes Edema: LLE: Trace, RLE: Trace Peripheral Pulses WNL: Yes Labs: CBC, BMP 12/25/17 07:55 12/25/17 07:55 INR, PTT INR 1.18 (0.82-1.09) H 12/23/17 16:10 Problem List - Problems (1) New onset a-fib Assessment/Plan: Echo ordered. TFT's. Change IV diltiazem to PO dilt 30 q6h. Full dose enoxaparin 1 mg/kg bid, will use eliquis when stable. Hold AM dose of low molecular weight heparin before cath. Code(s): I48.91 - UNSPECIFIED ATRIAL FIBRILLATION (2) Elevated troponin Assessment/Plan: Most likely demand ischemia. Cardiac catheterization scheduled for 12/26/[address] chest OK. Code(s): R74.8 - ABNORMAL LEVELS OF OTHER SERUM ENZYMES (3) Essential (primary) hypertension Assessment/Plan: Hold home medications for now. change to dilt 60 q6h, titrate as tolerated by bp and HR Code(s): I10 - ESSENTIAL (PRIMARY) HYPERTENSION (4) CHF (congestive heart failure) Assessment/Plan: lasix 40 mg IV daily daily wts fluid and salt restriction. echo acute systolic CHF, needs diuresis, ACEI when stable and cardiac catheterization if CT chest is OK. Code(s): I50.9 - HEART FAILURE, UNSPECIFIED Qualifiers: Heart failure type: diastolic Heart failure chronicity: acute Qualified Code(s): I50.31 - Acute diastolic (congestive) heart failure
[2017-12-25] MEDS ORDERED: POTASSIUM CHLORIDE TABS 20 MEQ TABLET.ER (FP) PO ONE (17:19)
--- NOTE | 2017-12-25 17:31 | PN ---
Progress Note (short form) - Note Progress Note: Subjective: The patient was seen and examined at the bedside, he states his shortness of breath is improving and that he states his lower extremity edema has improved as well. Current Medications Generic Name Dose Route Start Last Admin Trade Name Gina PRN Reason Stop Dose Admin Diltiazem HCl 60 mg 12/25/17 12:00 12/25/17 12:27 Cardizem - PO 60 mg Q6HPO JHOAN Administration Docusate Sodium 300 mg 12/24/17 22:00 12/24/17 23:05 Colace - PO Not Given HS JHOAN Enoxaparin Sodium 120 mg 12/23/17 22:00 12/25/17 09:40 Lovenox - SQ 120 mg BID JHOAN Administration Furosemide 40 mg 12/24/17 06:00 12/25/17 16:30 Lasix Injection - IVPUSH 40 mg BIDLASIX JHOAN Administration Polyethylene Glycol 17 gm 12/24/17 10:00 12/24/17 23:05 Miralax (For Daily Use) - PO Not Given BID JHOAN Potassium Chloride 40 meq 12/25/17 17:19 K-Dur - PO 12/25/17 17:20 ONCE ONE Objective: Vital Signs Period Temp Pulse Resp BP Sys/Alexandra Pulse Ox Last 24 Hr 98 F-98.9 F 63-120 16-20 113-138/69-95 90-91 Physical Exam: General: NAD, A&Ox3 Lungs: B/l rales at the bases Heart: Irregular, S1S2 Abd: Soft, non-tender, non-distended. Normoactive bowel sounds Ext: Warm, well-perfused. 1+ b/l pitting edema Neuro: CN 2-12 intact CBCD WBC 9.3 K/mm3 (4.0-10.0) 12/25/17 07:55 RBC 5.69 M/mm3 (4.00-5.60) H 12/25/17 07:55 Hgb 14.0 GM/dL (11.7-16.9) 12/25/17 07:55 Hct 42.8 % (35.4-49) 12/25/17 07:55 MCV 75.2 fl (80-96) L 12/25/17 07:55 MCHC 32.7 g/dl (32.0-35.9) 12/25/17 07:55 RDW 14.9 % (11.9-15.9) 12/25/17 07:55 Plt Count 263 K/MM3 (134-434) 12/25/17 07:55 MPV 9.9 fl (7.5-11.1) 12/25/17 07:55 CMP Sodium 145 mmol/L (136-145) 12/25/17 07:55 Potassium 3.4 mmol/L (3.5-5.1) L 12/25/17 07:55 Chloride 110 mmol/L (98-107) H 12/25/17 07:55 Carbon Dioxide 28 mmol/L (21-32) 12/25/17 07:55 Anion Gap 7 (8-16) L 12/25/17 07:55 BUN 20 mg/dL (7-18) H 12/25/17 07:55 Creatinine 1.4 mg/dL (0.7-1.3) H 12/25/17 07:55 Creat Clearance w eGFR 51.35 (>60) 12/25/17 07:55 Random Glucose 89 mg/dL (74-106) 12/25/17 07:55 Calcium 8.5 mg/dL (8.5-10.1) 12/25/17 07:55 Total Bilirubin 1.3 mg/dL (0.2-1.0) H D 12/25/17 07:55 AST 44 U/L (15-37) H D 12/25/17 07:55 ALT 53 U/L (12-78) D 12/25/17 07:55 Alkaline Phosphatase 96 U/L (45-117) 12/25/17 07:55 Total Protein 7.6 g/dl (6.4-8.2) 12/25/17 07:55 Albumin 3.3 g/dl (3.4-5.0) L 12/25/17 07:55 CARDIAC ENZYMES Troponin I 0.07 ng/ml (0.00-0.05) H 12/24/17 08:10 Assessment: This is a 62 year old male with PMHx of HTN, prostate cancer s/p prostatectomy, brain AVM repair, who presented to the ED with weight gain, shortness of breath, palpitations over the past week. Plan: 1) Acute decompensated systolic heart failure - ECHO LV moderately to severely reduced, EF=30%; moderate to severe global hypokinesis; RV normal; LAE; mild to moderate MR; trace TR; trace PI - Continue Lasix 40mg bid - Strict I&O - Daily weights - Appreciate cardiology consult 2) New onset a.fib - Lovenox 120mg sq bid - Diltiazem for rate control 3) HTN - Continue Diltiazem 60mg po q6h 4) Elevated troponin - Per cardiology likely demand ischemia - Cardiac cath tomorrow if chest CT ok 5) Left hilar prominence - F/u chest CT - Appreciate pulmonary consult 6) F/E/N: - Monitor electrolytes - Sodium controlled diet 7) Prophylaxis: - OOB ambulating - Lovenox 120mg sq bid 8) Dispo: - Requires continued inpatient care CODE STATUS: FULL CODE Visit type - Emergency Visit Emergency Visit: Yes ED Registration Date: 12/25/17 Care time: The patient presented to the Emergency Department on the above date and was hospitalized for further evaluation of their emergent condition. - New Patient This patient is new to me today: Yes Date on this admission: 12/25/17 - Critical Care Critical Care patient: No
[2017-12-25] MEDS: POLYETHYLENE GLYCOL 3350 119 GM BTL PO SCH ×2 (18:23→21:09)
[2017-12-25] MEDS: DOCUSATE SODIUM 100 MG CAPSULE (FP) PO SCH (21:09)
[2017-12-26] MEDS: dilTIAZem HCL 60 MG TABLET (FP) PO SCH (05:37)
[2017-12-26] MEDS: FUROSEMIDE 40 MG/4 ML INJECTABLE VIAL IVPUSH SCH (05:37)
[2017-12-26 07:54] LABS: BASO % 0.4 % (0-2.0); EOS % 0.7 % (0-4.5); HEMATOCRIT 40.9 % (35.4-49); HEMOGLOBIN 13.5 GM/dL (11.7-16.9); LYMPH % 11.7 % (8-40); MCH 24.7 pg (25.7-33.7); MCHC 32.9 g/dl (32.0-35.9); MEAN CELL VOLUME 74.9 fl (80-96); MONO % 12.4 % (3.8-10.2); NEUT % 74.8 % (42.8-82.8); PLATELET COUNT 229 K/MM3 (134-434); RBC 5.46 M/mm3 (4.00-5.60); RDW 15.4 % (11.9-15.9); WHITE BLOOD COUNT 8.6 K/mm3 (4.0-10.0)
[2017-12-26 08:25] LABS: CHLORIDE 109 mmol/L (98-107); POTASSIUM 3.1 mmol/L (3.5-5.1); SODIUM 147 mmol/L (136-145)
[2017-12-26 08:56] LABS: ALK PHOS 87 U/L (45-117); ANION GAP 13 (8-16); BILIRUBIN,TOTAL 1.3 mg/dL (0.2-1.0); BLOOD UREA NITROGEN 21 mg/dL (7-18); CALCIUM 8.7 mg/dL (8.5-10.1); CO2 25 mmol/L (21-32); CREATININE 1.4 mg/dL (0.7-1.3); GLUCOSE,RANDOM 84 mg/dL (74-106); SGOT/AST 52 U/L (15-37); SGPT/ALT 56 U/L (12-78); TOT PROT 7.1 g/dl (6.4-8.2)
[2017-12-26 09:41] VITALS: BP 126/70; PULSE 130; TEMP 98
[2017-12-26] MEDS: ENOXAPARIN NA (PORCINE) 120 MG/0.8 ML DISP.SYRIN SQ SCH (09:41)
[2017-12-26] MEDS: POLYETHYLENE GLYCOL 3350 119 GM BTL PO SCH (09:42)
--- NOTE | 2017-12-26 10:15 | DS ---
Physical Examination Vital Signs: Vital Signs Temperature 98 F 12/26/17 09:15 Pulse Rate 130 H 12/26/17 09:15 Respiratory Rate 22 12/26/17 09:15 Blood Pressure 126/70 12/26/17 09:15 O2 Sat by Pulse Oximetry (%) 96 12/26/17 08:00 Labs: CBC, BMP 12/26/17 07:00 12/26/17 07:00 Discharge Summary Reason For Visit: NEW ONSET ATRIAL FIBRILLATION Hospital Course: Transfer to [facility] Condition: Stable - Instructions Referrals: Peña Wu MD [Primary Care Provider] - Disposition: TRANSFER ACUTE CARE/OTHER HOSP - Home Medications Comprehensive Discharge Medication List: Ambulatory Orders Amlodipine Besylate 10 mg PO DAILY 09/06/17 Losartan Potassium 25 mg PO DAILY 09/11/17 Cyanocobalamin [Vitamin B12 -] 2,000 mcg PO DAILY 12/24/17
== END 2017-12-26 10:08 | disposition short-term general hospital (02) | DRG 308 ==
LOC: JER 15:10 → JERBED 18:43 → J4S 12-24 13:54 → OBSVTOIN 12-25 15:25
PROVIDERS: ADMIT Hospitalist; ATTEND Registered Nurse
DX: I48.91 Unspecified atrial fibrillation (principal); J96.01 Acute respiratory failure with hypoxia; I50.31 Acute diastolic (congestive) heart failure; I24.8 Other forms of acute ischemic heart disease; Z87.891 Personal history of nicotine dependence; Z85.46 Personal history of malignant neoplasm of prostate; E87.6 Hypokalemia; I11.0 Hypertensive heart disease with heart failure; I50.9 Heart failure, unspecified; I34.0 Nonrheumatic mitral (valve) insufficiency; I42.8 Other cardiomyopathies
CPT/HCPCS: 36415; 71045-TC-FY; 71046-TC-FY; 71250-TC; 80053; 83735; 83880; 84100; 84484; 85025; 85610; 85730; 93005; 93010; 93306-TC; 99285-25; G0378

== ENCOUNTER 2018-01-26 01:43 | Inpatient (IN) | payer OTHER ==
--- NOTE | 2018-01-26 01:58 | PDOC ---
History of Present Illness - General Chief Complaint: Respiratory Stated Complaint: DIFFICULT BREATHING Time Seen by Provider: 01/26/18 01:46 Past History - Past Medical History Allergies/Adverse Reactions: Allergies Allergy/AdvReac Type Severity Reaction Status Date / Time No Known Allergies Allergy Verified 01/26/18 01:52 Home Medications: Ambulatory Orders Amlodipine Besylate 10 mg PO DAILY 09/06/17 Losartan Potassium 25 mg PO DAILY 09/11/17 Cyanocobalamin [Vitamin B12 -] 2,000 mcg PO DAILY 12/24/17 Anemia: No Asthma: No Cancer: Yes (PROSTATE 2005) Cardiac Disorders: No CVA: No COPD: No CHF: No Dementia: No Diabetes: No GI Disorders: No Disorders: No HTN: Yes Hypercholesterolemia: No Liver Disease: No Seizures: No Thyroid Disease: No - Surgical History Abdominal Surgery: Yes (HERNIA REPAIR 2009) Appendectomy: No Cardiac Surgery: No Cholecystectomy: No Lung Surgery: No Neurologic Surgery: No Orthopedic Surgery: No - Immunization History Immunization Up to Date: Yes - Suicide/Smoking/Psychosocial Hx Smoking History: Never smoked Have you smoked in the past 12 months: No If you are a former smoker, when did you quit?: 1989 Information on smoking cessation initiated: No Hx Alcohol Use: No Drug/Substance Use Hx: No Substance Use Type: None Hx Substance Use Treatment: No *Physical Exam - Vital Signs Last Vital Signs Temp Pulse Resp BP Pulse Ox 75 24 132/110 95 01/26/18 01:46 01/26/18 01:46 01/26/18 01:46 01/26/18 01:46
[2018-01-26] MEDS ORDERED: ASPIRIN 81 MG CHEWABLE TABLETS PO ONE (02:06)
[2018-01-26] MEDS ORDERED: NITROGLYCERIN 2% OINTMENT - 1GM PACKET TD ONE ×2 (02:31→02:35)
[2018-01-26 02:35] LABS: BASO % 0.5 % (0-2.0); EOS % 2.4 % (0-4.5); HEMATOCRIT 47.3 % (35.4-49); HEMOGLOBIN 15.4 GM/dL (11.7-16.9); MCH 24.4 pg (25.7-33.7); MCHC 32.6 g/dl (32.0-35.9); MEAN CELL VOLUME 74.6 fl (80-96); MEAN PLT VOLUME 10.7 fl (7.5-11.1); MONO % 4.8 % (3.8-10.2); NEUT % 83.3 % (42.8-82.8); PLATELET COUNT 296 K/MM3 (134-434); RBC 6.33 M/mm3 (4.00-5.60); RDW 15.5 % (11.9-15.9); WHITE BLOOD COUNT 9.9 K/mm3 (4.0-10.0)
[2018-01-26] MEDS ORDERED: ASPIRIN 81 MG CHEWABLE TABLETS ONE (02:35)
[2018-01-26 02:46] LABS: ADD RBC MORPHOLOGY YES
[2018-01-26 02:48] LABS: INR 1.72 (0.82-1.09); PROTHROMBIN TIME (PATIENT) 19.4 SEC (9.7-13.0)
[2018-01-26 03:08] LABS: ARTERIAL BLD GAS O2 SATURATION 98.7 % (90-98.9); ARTERIAL BLOOD GAS BASE EXCESS -0.4 meq/l (-2-2); ARTERIAL BLOOD GAS PCO2 39.3 mmHg (35-45); CARBOXYHEMOGLOBIN 1.5 gm% (0.5-2.0)
[2018-01-26 03:16] LABS: ALLENS TEST POSITIVE
[2018-01-26 04:17] LABS: ALBUMIN 3.6 g/dl (3.4-5.0); ANION GAP 10 (8-16); BLOOD UREA NITROGEN 25 mg/dL (7-18); CALCIUM 8.8 mg/dL (8.5-10.1); CHLORIDE 108 mmol/L (98-107); CO2 24 mmol/L (21-32); CREATININE 2.4 mg/dL (0.7-1.3); GLUCOSE,RANDOM 121 mg/dL (74-106); POTASSIUM 3.9 mmol/L (3.5-5.1); SGOT/AST 22 U/L (15-37); SGPT/ALT 35 U/L (12-78); SODIUM 142 mmol/L (136-145); TOT PROT 8.1 g/dl (6.4-8.2)
[2018-01-26 04:19] LABS: ALK PHOS 110 U/L (45-117)
--- NOTE | 2018-01-26 04:27 | PDOC ---
History of Present Illness - General History Source: Patient Exam Limitations: No Limitations - History of Present Illness Initial Comments: 01/26/18 04:38 Patient is a 62 year old male with a significant past medical history of HTN, prostate cancer s/p prostatectomy (2007), and brain AVM s/p repair (2000), CHF, Afib, who presents to the ED with complaints of shortness of breath that began just prior to ED arrival. As per patient's , patient was admitted to the hospital x3 weeks ago and has been recovering at home. She reports patient, attempted to lift large air conditioner unit yesterday evening and has been feeling unwell since. He reports experiencing intermittent episodes of difficulty breathing since this morning, prompting him to to come into the ED for further evaluation. Denies chest pain, cough. Denies fever, chills. Denies contact with sick individuals, out of state travelling. Denies any other symptoms. Allergies: None Social history: Lives with and son. No smoking. No alcohol. No illicit drugs. Surgical history: AVM stereotactic surgery 2000 , Prostatectomy 2005, Hernia repair 2009 PMD: Dr. Funk <Shankar Kang - Last Filed: 01/26/18 04:38> <Livier Escobedo - Last Filed: 01/27/18 02:02> - General Chief Complaint: Respiratory Stated Complaint: DIFFICULT BREATHING Time Seen by Provider: 01/26/18 01:46 Past History <Shankar Kang - Last Filed: 01/26/18 04:38> - Past Medical History Anemia: No Asthma: No Cancer: Yes (PROSTATE 2005) Cardiac Disorders: Yes (A-fib) CVA: No COPD: No CHF: No Dementia: No Diabetes: No GI Disorders: No Disorders: No HTN: Yes Hypercholesterolemia: No Liver Disease: No Seizures: No Thyroid Disease: No - Surgical History Abdominal Surgery: Yes (HERNIA REPAIR 2009) Appendectomy: No Cardiac Surgery: No Cholecystectomy: No Lung Surgery: No Neurologic Surgery: No Orthopedic Surgery: No - Immunization History Immunization Up to Date: Yes - Suicide/Smoking/Psychosocial Hx Smoking History: Never smoked Have you smoked in the past 12 months: No If you are a former smoker, when did you quit?: 1989 Information on smoking cessation initiated: No Hx Alcohol Use: No Drug/Substance Use Hx: No Substance Use Type: None Hx Substance Use Treatment: No <EscobedoLivier - Last Filed: 01/27/18 02:02> - Past Medical History Allergies/Adverse Reactions: Allergies Allergy/AdvReac Type Severity Reaction Status Date / Time No Known Allergies Allergy Verified 01/26/18 01:52 Home Medications: Ambulatory Orders Amiodarone HCl [Cordarone -] 200 mg PO DAILY 01/26/18 Apixaban [Eliquis] 5 mg PO BID 01/26/18 Furosemide [Lasix -] 80 mg PO BID 01/26/18 Hydralazine HCl 25 mg PO BID 01/26/18 Isosorbide Dinitrate [Isordil -] 20 mg PO BID 01/26/18 Metoprolol Tartrate [Lopressor] 100 mg PO BID 01/26/18 Spironolactone [Aldactone] 25 mg PO DAILY 01/26/18 Valsartan [Diovan] 80 mg PO Q12H 01/26/18 Review of Systems - Review of Systems Able to Perform ROS?: Yes Comments:: 01/26/18 04:38 GENERAL/CONSTITUTIONAL: No fever or chills. No weakness. HEAD, EYES, EARS, NOSE AND THROAT: No change in vision. No ear pain or discharge. No sore throat. CARDIOVASCULAR: +Shortness of breath No chest pain RESPIRATORY: No cough, wheezing, or hemoptysis. GASTROINTESTINAL: No nausea, vomiting, diarrhea or constipation. GENITOURINARY: No dysuria, frequency, or change in urination. MUSCULOSKELETAL: No joint or muscle swelling or pain. No neck or back pain. SKIN: No rash NEUROLOGIC: No headache, vertigo, loss of consciousness, or change in strength/ sensation. ENDOCRINE: No increased thirst. No abnormal weight change. HEMATOLOGIC/LYMPHATIC: No anemia, easy bleeding, or history of blood clots. ALLERGIC/IMMUNOLOGIC: No hives or skin allergy. <Shankar Kang - Last Filed: 01/26/18 04:38> *Physical Exam - Vital Signs Last Vital Signs Temp Pulse Resp BP Pulse Ox 75 24 132/110 96 01/26/18 01:46 01/26/18 01:46 01/26/18 01:46 01/26/18 02:15 - Physical Exam Comments: 01/26/18 04:39 GENERAL: +Comfortable on BIPAP. Awake, alert, and fully oriented, in no acute distress HEAD: No signs of trauma EYES: PERRLA, EOMI, sclera anicteric, conjunctiva clear ENT: Auricles normal inspection, hearing grossly normal, nares patent, oropharynx clear without exudates. Moist mucosa NECK: Normal ROM, supple, no lymphadenopathy, JVD, or masses LUNGS: +Shortness of breath. +Decreased breath sounds bilaterally. Breath sounds equal, clear to auscultation bilaterally. No wheezes, and no crackles HEART: Regular rate and rhythm, normal S1 and S2, no murmurs, rubs or gallops ABDOMEN: Soft, nontender, normoactive bowel sounds. No guarding, no rebound. No masses EXTREMITIES: +Bilateral lower extremity pitting edema. Normal range of motion,. No clubbing or cyanosis. No cords, erythema, or tenderness NEUROLOGICAL: Cranial nerves II through XII grossly intact. Normal speech, normal gait SKIN: Warm, Dry, normal turgor, no rashes or lesions noted. <Shankar Kang - Last Filed: 01/26/18 04:38> - Vital Signs Last Vital Signs Temp Pulse Resp BP Pulse Ox 75 24 132/110 96 01/26/18 01:46 01/26/18 01:46 01/26/18 01:46 01/26/18 02:15 <Livier Escobedo - Last Filed: 01/27/18 02:02> ED Treatment Course - LABORATORY CBC & Chemistry Diagram: 01/26/18 02:20 01/26/18 03:35 - ADDITIONAL ORDERS Additional order review: Laboratory Results 01/26/18 01/26/18 01/26/18 03:35 03:35 02:20 PT with INR INR PTT (Actin FS) Puncture Site ABG pH ABG pCO2 at Pt Temp ABG pO2 at Pt Temp ABG HCO3 ABG O2 Sat (Measured) ABG O2 Content ABG Base Excess Twin Test Carboxyhemoglobin Methemoglobin Oxygen Flow Rate Sodium 142 Potassium 3.9 D Chloride 108 H Carbon Dioxide 24 Anion Gap 10 BUN 25 H Creatinine 2.4 H D Creat Clearance w eGFR 27.57 Random Glucose 121 H D Calcium 8.8 Phosphorus Cancelled Magnesium Cancelled Total Bilirubin 1.0 D AST 22 D ALT 35 D Alkaline Phosphatase 110 D Creatine Kinase 79 Troponin I 0.02 D B-Natriuretic Peptide 8920.94 H Total Protein 8.1 Albumin 3.6 01/26/18 01/26/18 01/26/18 02:20 02:20 02:20 PT with INR 19.40 H INR 1.72 H D PTT (Actin FS) 32.5 Puncture Site ABG pH ABG pCO2 at Pt Temp ABG pO2 at Pt Temp ABG HCO3 ABG O2 Sat (Measured) ABG O2 Content ABG Base Excess Twin Test Carboxyhemoglobin Methemoglobin Oxygen Flow Rate Sodium Potassium Chloride Carbon Dioxide Anion Gap BUN Creatinine Creat Clearance w eGFR Random Glucose Calcium Phosphorus Magnesium Total Bilirubin AST ALT Alkaline Phosphatase Creatine Kinase Troponin I B-Natriuretic Peptide Cancelled Total Protein Albumin 01/26/18 01/26/18 02:20 02:05 PT with INR INR PTT (Actin FS) Puncture Site Right radial ABG pH 7.40 ABG pCO2 at Pt Temp 39.3 ABG pO2 at Pt Temp 134.0 H ABG HCO3 23.7 ABG O2 Sat (Measured) 98.7 ABG O2 Content 20.3 ABG Base Excess -0.4 Twin Test Positive Carboxyhemoglobin 1.5 Methemoglobin 1.0 Oxygen Flow Rate Yes Sodium Cancelled Potassium Cancelled Chloride Cancelled Carbon Dioxide Cancelled Anion Gap Cancelled BUN Cancelled Creatinine Cancelled Creat Clearance w eGFR Cancelled Random Glucose Cancelled Calcium Cancelled Phosphorus Magnesium Total Bilirubin Cancelled AST Cancelled ALT Cancelled Alkaline Phosphatase Cancelled Creatine Kinase Cancelled Troponin I Cancelled B-Natriuretic Peptide Total Protein Cancelled Albumin Cancelled 01/26/18 02:20 RBC 6.33 H MCV 74.6 L MCHC 32.6 RDW 15.5 MPV 10.7 Neutrophils % 83.3 H Lymphocytes % 9.0 D Monocytes % 4.8 Eosinophils % 2.4 D Basophils % 0.5 - Medications Given in the ED: ED Medications Discontinued Medications Generic Name Dose Route Start Last Admin Trade Name Freq PRN Reason Stop Dose Admin Aspirin 162 mg 01/26/18 02:06 01/26/18 02:43 Asa - PO 01/26/18 02:07 162 mg ONCE ONE Administration Nitroglycerin 1 inch 01/26/18 02:31 01/26/18 02:43 Nitro-Bid 2% Paste - TD 01/26/18 02:32 1 inch ONCE ONE Administration <Shankar Kang - Last Filed: 01/26/18 04:38> - LABORATORY CBC & Chemistry Diagram: 01/26/18 02:20 01/26/18 03:35 - ADDITIONAL ORDERS Additional order review: Laboratory Results 01/26/18 01/26/18 01/26/18 03:35 03:35 02:20 PT with INR INR PTT (Actin FS) Puncture Site ABG pH ABG pCO2 at Pt Temp ABG pO2 at Pt Temp ABG HCO3 ABG O2 Sat (Measured) ABG O2 Content ABG Base Excess Twin Test Carboxyhemoglobin Methemoglobin Oxygen Flow Rate Sodium 142 Potassium 3.9 D Chloride 108 H Carbon Dioxide 24 Anion Gap 10 BUN 25 H Creatinine 2.4 H D Creat Clearance w eGFR 27.57 Random Glucose 121 H D Calcium 8.8 Phosphorus Cancelled Magnesium Cancelled Total Bilirubin 1.0 D AST 22 D ALT 35 D Alkaline Phosphatase 110 D Creatine Kinase 79 Troponin I 0.02 D B-Natriuretic Peptide 8920.94 H Total Protein 8.1 Albumin 3.6 01/26/18 01/26/18 01/26/18 02:20 02:20 02:20 PT with INR 19.40 H INR 1.72 H D PTT (Actin FS) 32.5 Puncture Site ABG pH ABG pCO2 at Pt Temp ABG pO2 at Pt Temp ABG HCO3 ABG O2 Sat (Measured) ABG O2 Content ABG Base Excess Twin Test Carboxyhemoglobin Methemoglobin Oxygen Flow Rate Sodium Potassium Chloride Carbon Dioxide Anion Gap BUN Creatinine Creat Clearance w eGFR Random Glucose Calcium Phosphorus Magnesium Total Bilirubin AST ALT Alkaline Phosphatase Creatine Kinase Troponin I B-Natriuretic Peptide Cancelled Total Protein Albumin 01/26/18 01/26/18 02:20 02:05 PT with INR INR PTT (Actin FS) Puncture Site Right radial ABG pH 7.40 ABG pCO2 at Pt Temp 39.3 ABG pO2 at Pt Temp 134.0 H ABG HCO3 23.7 ABG O2 Sat (Measured) 98.7 ABG O2 Content 20.3 ABG Base Excess -0.4 Twin Test Positive Carboxyhemoglobin 1.5 Methemoglobin 1.0 Oxygen Flow Rate Yes Sodium Cancelled Potassium Cancelled Chloride Cancelled Carbon Dioxide Cancelled Anion Gap Cancelled BUN Cancelled Creatinine Cancelled Creat Clearance w eGFR Cancelled Random Glucose Cancelled Calcium Cancelled Phosphorus Magnesium Total Bilirubin Cancelled AST Cancelled ALT Cancelled Alkaline Phosphatase Cancelled Creatine Kinase Cancelled Troponin I Cancelled B-Natriuretic Peptide Total Protein Cancelled Albumin Cancelled 01/26/18 02:20 RBC 6.33 H MCV 74.6 L MCHC 32.6 RDW 15.5 MPV 10.7 Neutrophils % 83.3 H Lymphocytes % 9.0 D Monocytes % 4.8 Eosinophils % 2.4 D Basophils % 0.5 - RADIOLOGY Radiology Studies Ordered: Category Date Time Status CHEST X-RAY PORTABLE* [RAD] Stat Radiology 01/26/18 01:58 Ordered - Medications Given in the ED: ED Medications Discontinued Medications Generic Name Dose Route Start Last Admin Trade Name Freq PRN Reason Stop Dose Admin Aspirin 162 mg 01/26/18 02:06 01/26/18 02:43 Asa - PO 01/26/18 02:07 162 mg ONCE ONE Administration Nitroglycerin 1 inch 01/26/18 02:31 01/26/18 02:43 Nitro-Bid 2% Paste - TD 01/26/18 02:32 1 inch ONCE ONE Administration <Livier Escobedo - Last Filed: 01/27/18 02:02> Medical Decision Making - Medical Decision Making 01/27/18 01:59 Pt comes with CHF exacerbation and MSCP. Pt placed on BiPAP in the ER. States that he has been taking extra doses of lasix at home, initially patient was refusing lasix in the ER, so we began treating him with nitro. BNP came back at over 8K, so 1 dose of lasix was administered. Pt is producing urine in the ER and he's feeling better. Pt was admitted to med surg. <Livier Escobedo - Last Filed: 01/27/18 02:02> *DC/Admit/Observation/Transfer - Attestations Scribe Attestion: 01/26/18 04:39 Documentation prepared by Shankar Kang, acting as medical support specialist for Livier Escobedo MD/DO. <Shankar Kang - Last Filed: 01/26/18 04:38> - Discharge Dispostion Admit: Yes <Livier Escobedo - Last Filed: 01/27/18 02:02> Diagnosis at time of Disposition: CHF (congestive heart failure), Atrial fibrillation, Acute renal insufficiency , Dyspnea - Discharge Dispostion Condition at time of disposition: Guarded
[2018-01-26] MEDS: FUROSEMIDE 40 MG/4 ML INJECTABLE VIAL IVPUSH ONE ×2 (05:47→06:11)
[2018-01-26 05:49] LABS: PLATELET ESTIMATE ADEQUATE
[2018-01-26] MEDS ORDERED: FUROSEMIDE 40 MG/4 ML INJECTABLE VIAL ONE ×2 (06:07→07:34)
[2018-01-26] MEDS ORDERED: FUROSEMIDE 40 MG/4 ML INJECTABLE VIAL IVPUSH ONE ×2 (07:44→08:17)
[2018-01-26] MEDS ORDERED: VALSARTAN 80 MG TABLET (UD) PO SCH (08:00)
[2018-01-26] MEDS ORDERED: ATORVASTATIN CA 80 MG TABLET (FP) PO ONE (08:19)
--- NOTE | 2018-01-26 08:19 | PN ---
Teaching Attending Note Name of Resident: Nathan Turner ATTENDING PHYSICIAN STATEMENT I saw and evaluated the patient. I reviewed the resident's note and discussed the case with the resident. I agree with the resident's findings and plan as documented. SUBJECTIVE: Patient is a 62 year old male with a significant past medical history of HTN, prostate cancer s/p prostatectomy (2007), and brain AVM s/p repair (2000), CHF, Afib, who presents to the ED with complaints of shortness of breath that began just prior to ED arrival. Patient was in the hospital a month ago where he was transferred to [facility] and was found to have clean coronaries. OBJECTIVE: Vital Signs Temperature 97.7 F 01/26/18 07:10 Pulse Rate 66 01/26/18 07:25 Respiratory Rate 24 01/26/18 07:25 Blood Pressure 139/113 01/26/18 07:25 O2 Sat by Pulse Oximetry (%) 94 L 01/26/18 07:25 CBCD WBC 9.9 K/mm3 (4.0-10.0) 01/26/18 02:20 RBC 6.33 M/mm3 (4.00-5.60) H 01/26/18 02:20 Hgb 15.4 GM/dL (11.7-16.9) D 01/26/18 02:20 Hct 47.3 % (35.4-49) D 01/26/18 02:20 MCV 74.6 fl (80-96) L 01/26/18 02:20 MCHC 32.6 g/dl (32.0-35.9) 01/26/18 02:20 RDW 15.5 % (11.9-15.9) 01/26/18 02:20 Plt Count 296 K/MM3 (134-434) D 01/26/18 02:20 MPV 10.7 fl (7.5-11.1) 01/26/18 02:20 CMP Sodium 142 mmol/L (136-145) 01/26/18 03:35 Potassium 3.9 mmol/L (3.5-5.1) D 01/26/18 03:35 Chloride 108 mmol/L (98-107) H 01/26/18 03:35 Carbon Dioxide 24 mmol/L (21-32) 01/26/18 03:35 Anion Gap 10 (8-16) 01/26/18 03:35 BUN 25 mg/dL (7-18) H 01/26/18 03:35 Creatinine 2.4 mg/dL (0.7-1.3) H D 01/26/18 03:35 Creat Clearance w eGFR 27.57 (>60) 01/26/18 03:35 Random Glucose 121 mg/dL (74-106) H D 01/26/18 03:35 Calcium 8.8 mg/dL (8.5-10.1) 01/26/18 03:35 Total Bilirubin 1.0 mg/dL (0.2-1.0) D 01/26/18 03:35 AST 22 U/L (15-37) D 01/26/18 03:35 ALT 35 U/L (12-78) D 01/26/18 03:35 Alkaline Phosphatase 110 U/L (45-117) D 01/26/18 03:35 Total Protein 8.1 g/dl (6.4-8.2) 01/26/18 03:35 Albumin 3.6 g/dl (3.4-5.0) 01/26/18 03:35 CARDIAC ENZYMES Creatine Kinase 79 IU/L (39-308) 01/26/18 03:35 Troponin I 0.02 ng/ml (0.00-0.05) D 01/26/18 03:35 Current Medications Generic Name Dose Route Start Last Admin Trade Name Freq PRN Reason Stop Dose Admin Amiodarone HCl 200 mg 01/26/18 10:00 Cordarone - PO DAILY [facility] Apixaban 5 mg 01/26/18 10:00 Eliquis - PO BID [facility] Furosemide 80 mg 01/26/18 16:00 Lasix Injection - IVPUSH BID@0600,1400 JHOAN Furosemide 20 mg 01/26/18 08:17 Lasix Injection - IVPUSH 01/26/18 08:18 ONCE ONE Hydralazine HCl 25 mg 01/26/18 10:00 Apresoline - PO BID [facility] Isosorbide Dinitrate 20 mg 01/26/18 10:00 Isordil - PO BID [facility] Non-Formulary Medication 100 mg 01/26/18 10:00 Metoprolol Tartrate [Lopressor] PO BID [facility] Spironolactone 25 mg 01/26/18 10:00 Aldactone - PO DAILY [facility] Home Medications Medication Instructions Recorded Amiodarone HCl [Cordarone -] 200 mg PO DAILY 01/26/18 Apixaban [Eliquis] 5 mg PO BID 01/26/18 Furosemide [Lasix -] 80 mg PO BID 01/26/18 Hydralazine HCl 25 mg PO BID 01/26/18 Isosorbide Dinitrate [Isordil -] 20 mg PO BID 01/26/18 Metoprolol Tartrate [Lopressor] 100 mg PO BID 01/26/18 Spironolactone [Aldactone] 25 mg PO DAILY 01/26/18 Valsartan [Diovan] 80 mg PO Q12H 01/26/18 PE: per resident's note EKG: NSR,rate 70, LAE, LBBB, No ST elevation or depression. ECHO: 12/2017: 25-30% EJF, LV mildly dilated, LV systolic function moderate-to severely reduced, global hypokinesis, mild-moderate MR, trace TR. ASSESSMENT AND PLAN: Patient is a 62 year old male with a significant past medical history of HTN, prostate cancer s/p prostatectomy (2007), and brain AVM s/p repair (2000), CHF, Afib, who presents to the ED with complaints of shortness of breath. Patient had angio a month ago at [facility] with clean coronaries. # Acute over chronic systolic CHF with BNP of 8000's, will increase his lasix to 80mg iv bid, continue amiodorane ,eliquis, hydralazine, spironolactone, continue Isordil, Lopressor 100mg po bid. CE q8x3 ordered, for consult. will order TSH,FT4. continue Aspirin Patient should be eveluated for ICD placement. Lipid panel ordered and started on Lipitor #Hx of Afib on Eliquis and amiodorane # Acute renal failure will hold off on Losartan for now, will continue Lasix, nephro consult # Elevated blood sugar will get fasting BS and hemoglobin A1c DVT Px; Eliquis
--- NOTE | 2018-01-26 08:24 | HP ---
CHIEF COMPLAINT: CHf exabration HISTORY OF PRESENT ILLNESS: Patient is a 62 year old male with a significant past medical history of HTN, prostate cancer s/p prostatectomy (2007), and brain AVM s/p repair (2000), CHF, Afib, who presents to the ED with complaints of shortness of breath that began just prior to ED arrival. Patient states last month he was diagnosed with afib and chf. Shaun was transferred to [facility] last month where ct angio was done and it didnt show any blockage no stents was placed. shaun was discharged home form [facility]. In last 3 week shaun reports valdez has gained 5 pounds. Started feeling sob yesterday, noticed incresed in swelling in legs. Didn't eat any thing from outside, eats low salt diet, reports he is compliant with meds. Denies chest pain, palpitations, cough, recent travel, trauma. Denies orthopnea and paroxysmal dyspnea. Denies nausea, vomiting. In [facility] he was cardioverted twice and was started on amiodarone. used BIPAP for 2 hours in ER ER course was notable for: (1)cbc, cmp (2)IV lasix 20 (3)cxr Recent Travel: no PAST MEDICAL HISTORY: as above PAST SURGICAL HISTORY: hiatal hernia repair, prostate cancer surgery, av[facility] repair Social History: Smoking: stopped 20 years ago, smoked for 10 years, pack a day Alcohol: occasional Drugs: no Family History: Allergies No Known Allergies Allergy (Verified 01/26/18 01:52) HOME MEDICATIONS: Home Medications Medication Instructions Recorded Amiodarone HCl [Cordarone -] 200 mg PO DAILY 01/26/18 Apixaban [Eliquis] 5 mg PO BID 01/26/18 Furosemide [Lasix -] 80 mg PO BID 01/26/18 Hydralazine HCl 25 mg PO BID 01/26/18 Isosorbide Dinitrate [Isordil -] 20 mg PO BID 01/26/18 Metoprolol Tartrate [Lopressor] 100 mg PO BID 01/26/18 Spironolactone [Aldactone] 25 mg PO DAILY 01/26/18 Valsartan [Diovan] 80 mg PO Q12H 01/26/18 REVIEW OF SYSTEMS CONSTITUTIONAL: Absent: fever, chills, diaphoresis, generalized weakness, malaise, loss of appetite, weight change HEENT: Absent: rhinorrhea, nasal congestion, throat pain, throat swelling, difficulty swallowing, mouth swelling, ear pain, eye pain, visual changes CARDIOVASCULAR: Absent: chest pain, syncope, palpitations, irregular heart rate, lightheadedness , peripheral edema RESPIRATORY: Absent: cough, shortness of breath, dyspnea with exertion, orthopnea, wheezing, stridor, hemoptysis GASTROINTESTINAL: Absent: abdominal pain, abdominal distension, nausea, vomiting, diarrhea, constipation, melena, hematochezia GENITOURINARY: Absent: dysuria, frequency, urgency, hesitancy, hematuria, flank pain, genital pain MUSCULOSKELETAL: Absent: myalgia, arthralgia, joint swelling, back pain, neck pain SKIN: Absent: rash, itching, pallor HEMATOLOGIC/IMMUNOLOGIC: Absent: easy bleeding, easy bruising, lymphadenopathy, frequent infections ENDOCRINE: Absent: unexplained weight gain, unexplained weight loss, heat intolerance, cold intolerance NEUROLOGIC: Absent: headache, focal weakness or paresthesias, dizziness, unsteady gait, seizure, PSYCHIATRIC: Absent: anxiety, depression, PHYSICAL EXAMINATION Vital Signs - 24 hr 01/26/18 01/26/18 01/26/18 01:46 02:15 05:00 Temperature Pulse Rate 75 Pulse Rate [ Left] Respiratory 24 Rate Blood Pressure 132/110 Blood Pressure [Right Arm] O2 Sat by Pulse 95 96 97 Oximetry (%) 01/26/18 01/26/18 01/26/18 06:30 07:10 07:15 Temperature 97.7 F Pulse Rate Pulse Rate [ 64 Left] Respiratory 20 Rate Blood Pressure Blood Pressure 136/108 [Right Arm] O2 Sat by Pulse 95 96 96 Oximetry (%) 01/26/18 07:25 Temperature Pulse Rate Pulse Rate [ 66 Left] Respiratory 24 Rate Blood Pressure Blood Pressure 139/113 [Right Arm] O2 Sat by Pulse 94 L Oximetry (%) GENERAL: Awake, alert, and fully oriented, in no acute distress. lying in bed with nnr rebreather HEAD: Normal with no signs of trauma. EYES: Pupils equal, round and reactive to light, extraocular movements intact, sclera anicteric, conjunctiva clear. No lid lag. EARS, NOSE, THROAT: Ears normal, nares patent, oropharynx clear without exudates. Moist mucous membranes. NECK: Normal range of motion, supple without lymphadenopathy, JVD, or masses. LUNGS: Breath sounds equal, clear to auscultation bilaterally. No wheezes, No accessory muscle use. b/l crackels present at base HEART: Regular rate and rhythm, normal S1 and S2 without murmur, ABDOMEN: Soft, nontender, not distended, normoactive bowel sounds, no guarding, no rebound, no masses. UPPER EXTREMITIES: 2+ pulses, warm, well-perfused. No cyanosis. No clubbing. No peripheral edema. LOWER EXTREMITIES: warm, well-perfused. No calf tenderness. peripheral edema 1+ NEUROLOGICAL: Cranial nerves II-XII intact. Normal speech. Normal gait. PSYCHIATRIC: Cooperative. Good eye contact. SKIN: Warm, dry, Laboratory Results - last 24 hr 01/26/18 01/26/18 01/26/18 02:05 02:20 02:20 WBC 9.9 RBC 6.33 H Hgb 15.4 D Hct 47.3 D MCV 74.6 L MCH 24.4 L MCHC 32.6 RDW 15.5 Plt Count 296 D MPV 10.7 Neutrophils % 83.3 H Lymphocytes % 9.0 D Monocytes % 4.8 Eosinophils % 2.4 D Basophils % 0.5 Platelet Estimate Adequate Platelet Comment Rare giant plts Polychromasia 1+ PT with INR INR PTT (Actin FS) Puncture Site Right radial ABG pH 7.40 ABG pCO2 at Pt Temp 39.3 ABG pO2 at Pt Temp 134.0 H ABG HCO3 23.7 ABG O2 Sat (Measured) 98.7 ABG O2 Content 20.3 ABG Base Excess -0.4 Twin Test Positive Carboxyhemoglobin 1.5 Methemoglobin 1.0 Oxygen Flow Rate Yes Sodium Cancelled Potassium Cancelled Chloride Cancelled Carbon Dioxide Cancelled Anion Gap Cancelled BUN Cancelled Creatinine Cancelled Creat Clearance w eGFR Cancelled Random Glucose Cancelled Calcium Cancelled Phosphorus Magnesium Total Bilirubin Cancelled AST Cancelled ALT Cancelled Alkaline Phosphatase Cancelled Creatine Kinase Cancelled Troponin I Cancelled B-Natriuretic Peptide Total Protein Cancelled Albumin Cancelled 01/26/18 01/26/18 01/26/18 02:20 02:20 02:20 WBC RBC Hgb Hct MCV MCH MCHC RDW Plt Count MPV Neutrophils % Lymphocytes % Monocytes % Eosinophils % Basophils % Platelet Estimate Platelet Comment Polychromasia PT with INR 19.40 H INR 1.72 H D PTT (Actin FS) 32.5 Puncture Site ABG pH ABG pCO2 at Pt Temp ABG pO2 at Pt Temp ABG HCO3 ABG O2 Sat (Measured) ABG O2 Content ABG Base Excess Twin Test Carboxyhemoglobin Methemoglobin Oxygen Flow Rate Sodium Potassium Chloride Carbon Dioxide Anion Gap BUN Creatinine Creat Clearance w eGFR Random Glucose Calcium Phosphorus Magnesium Total Bilirubin AST ALT Alkaline Phosphatase Creatine Kinase Troponin I B-Natriuretic Peptide Cancelled Total Protein Albumin 01/26/18 01/26/18 01/26/18 02:20 03:35 03:35 WBC RBC Hgb Hct MCV MCH MCHC RDW Plt Count MPV Neutrophils % Lymphocytes % Monocytes % Eosinophils % Basophils % Platelet Estimate Platelet Comment Polychromasia PT with INR INR PTT (Actin FS) Puncture Site ABG pH ABG pCO2 at Pt Temp ABG pO2 at Pt Temp ABG HCO3 ABG O2 Sat (Measured) ABG O2 Content ABG Base Excess Twin Test Carboxyhemoglobin Methemoglobin Oxygen Flow Rate Sodium 142 Potassium 3.9 D Chloride 108 H Carbon Dioxide 24 Anion Gap 10 BUN 25 H Creatinine 2.4 H D Creat Clearance w eGFR 27.57 Random Glucose 121 H D Calcium 8.8 Phosphorus Cancelled Magnesium Cancelled Total Bilirubin 1.0 D AST 22 D ALT 35 D Alkaline Phosphatase 110 D Creatine Kinase 79 Troponin I 0.02 D B-Natriuretic Peptide 8920.94 H Total Protein 8.1 Albumin 3.6 EKG: LBBB, left atrial enlargement, NSR ECHO: 12/2017: 25-30% EJF, LV mildly dilated, LV systolic function moderate-to severely reduced, global hypokinesis, mild-moderate MR, trace TR. ASSESSMENT/PLAN: Acute on chronic systolic heart failure IV lasix 80 bid daily weight Intake and output monitoring. lopressor [address] gamez started on aspirin 81 daily. lipid panel ordered, started on lipitor. patient should be evaluated for ICD hold losartan for geraldine repeat echo continue isosorbide dinitrate 20 bid Afib: now sinus rhythm on rate and rhythm. continue eliquis continue amiadarone continue lopressor get tsh, t4 patinet recently started on amiadarone. GERALDINE urine lytes monitor creatnine avoid nephrotoxic drugs. renal usg nephro consult hold losartan HTN continue Lopressor hold losartan contninue hdralazine fluid: avoid electrolyte: repeat in am nutrition: low salt diet dvt pro: on eliquis gi pro: not rquired dispo: admit tele. Visit type - Emergency Visit Emergency Visit: Yes ED Registration Date: 01/26/18 Care time: The patient presented to the Emergency Department on the above date and was hospitalized for further evaluation of their emergent condition. - New Patient This patient is new to me today: Yes Date on this admission: 01/26/18 - Critical Care Critical Care patient: No
--- NOTE | 2018-01-26 10:00 | CONSULT ---
Consult - text type - Consultation Consultation Note: Renal Consult for GERALDINE This is a 62 year old gentleman with PMhx of Hypertension, Prostate Ca s/p prostatectomy, Brain AVM s/p repair, CHF, Afib? CKD who presented with SOB and admitted for acute on chronic HF with GERALDINE with Cr of 2.4. Cr was 1.4 last month but did have a CTA of the heart done at [facility] last month. Was on Losartan as outpatient. Pt denies any change in urine output or quality of urine. Denies any obstructive symptoms. No NSAID use. Was on Losartan and Lasix at home. No flank pain, N/V/D. NO Chest pain. No confusion or lethargy. PMhx: as above Allegies: NKDA Family Hx: NC Social Hx: No T/A/D ROS: as per HPI Home Medications Medication Instructions Recorded Amiodarone HCl [Cordarone -] 200 mg PO DAILY 01/26/18 Apixaban [Eliquis] 5 mg PO BID 01/26/18 Furosemide [Lasix -] 80 mg PO BID 01/26/18 Hydralazine HCl 25 mg PO BID 01/26/18 Isosorbide Dinitrate [Isordil -] 20 mg PO BID 01/26/18 Metoprolol Tartrate [Lopressor] 100 mg PO BID 01/26/18 Spironolactone [Aldactone] 25 mg PO DAILY 01/26/18 Valsartan [Diovan] 80 mg PO Q12H 01/26/18 Vital Signs Temperature 97.7 F 01/26/18 07:10 Pulse Rate 66 01/26/18 07:25 Respiratory Rate 21 01/26/18 08:38 Blood Pressure 134/98 01/26/18 08:38 O2 Sat by Pulse Oximetry (%) 92 L 01/26/18 08:38 Intake & Output 01/23/18 01/24/18 01/25/18 01/26/18 23:59 23:59 23:59 23:59 Output Total 160 Balance -160 Weight 119.748 kg NAD awake and alert MMM irregular, no M/R Dec Bs at both lung bases, no wheeze, rales soft NT/ND trace LE edema CBC, BMP 01/26/18 02:20 01/26/18 03:35 Laboratory Tests 01/26/18 01/26/1818 02:05 02:20 03:35 MCV 74.6 L ABG pH 7.40 ABG pCO2 at Pt Temp 39.3 ABG pO2 at Pt Temp 134.0 H Calcium Phosphorus Magnesium B-Natriuretic Peptide 8920.94 H Albumin 01/26/18 03:35 MCV ABG pH ABG pCO2 at Pt Temp ABG pO2 at Pt Temp Calcium 8.8 Phosphorus Pending Magnesium Pending B-Natriuretic Peptide Albumin 3.6 CXR - progressive Congestive changes Current Medications Amiodarone HCl (Cordarone -) 200 mg PO DAILY JHOAN Apixaban (Eliquis -) 5 mg PO BID JHOAN Aspirin (Asa -) 81 mg PO DAILY JHOAN Atorvastatin Calcium (Lipitor -) 80 mg PO HS JHOAN Furosemide (Lasix Injection -) 80 mg IVPUSH BID@0600,1400 JHOAN Hydralazine HCl (Apresoline -) 25 mg PO BID JHOAN Isosorbide Dinitrate (Isordil -) 20 mg PO BIDISORDIL JHOAN Metoprolol Tartrate (Lopressor -) 100 mg PO BID JHOAN Spironolactone (Aldactone -) 25 mg PO DAILY JHOAN 62 year old gentleman with PMhx of Hypertension, Prostate Ca s/p prostatectomy, Brain AVM s/p repair, CHF, Afib? CKD who presented with SOB and admitted for acute on chronic HF with GERALDINE with Cr of 2.4. #GERALDINE on possible CKD likely due to cardiorenal syndrome vs. KARINA/ATN (less likely given that contrast exposure was several weeks ago) vs. obstruction #CHF Exacerbation #Hypertension Check Urine studies for FeUrea, UPCR Check Renal US aggree with holding ARB Continue IV diuresis No indication for LAUNDRY TECH at the present time Cardiology follow up Thank you Will follow Bari Ram DO
[2018-01-26 10:06] LABS: MAGNESIUM 2.2 mg/dL (1.8-2.4); PHOSPHOROUS 4.1 mg/dL (2.5-4.9)
[2018-01-26] MEDS ORDERED: ATORVASTATIN CA 80 MG TABLET (FP) ONE (10:08)
[2018-01-26] MEDS: APIXABAN 5 MG TABLET PO SCH ×2 (10:10→21:25)
[2018-01-26] MEDS: ISOSORBIDE DINITRATE 20 MG TABLET (FP) PO SCH ×2 (10:10→18:40)
[2018-01-26] MEDS: AMIODARONE HCL 200 MG TABLET (FP) PO SCH (10:10)
[2018-01-26] MEDS: hydrALAZINE HCL 25 MG TABLET (FP) PO SCH ×2 (10:10→21:25)
[2018-01-26] MEDS: METOPROLOL TARTRATE 50 MG TABLET (FP) PO SCH ×2 (10:10→21:25)
[2018-01-26] MEDS: SPIRONOLACTONE 25 MG TABLET (FP) PO SCH (10:10)
--- NOTE | 2018-01-26 12:06 | PN ---
Progress Note (short form) - Note Progress Note: PULMONARY CONSULTATION DICTATED 01/26/18 IMP ACUTE HYPOXEMIC RESPIRATORY FAILURE ACUTE ON CHRONIC CHF CARDIOMYOPATHY WITH SEVERE LV DYSFUNCTION AFIB ACUTE ON LIKELY CHRONIC KIDNEY DISEASE H/O PROSTATE CA S/P PROSTATECTOMY H/O BRAIN AVM HTN LLL PULMONARY NODULE PLAN IV LASIX SUPPLEMENTAL O2 TO MAINTAIN O2 SAT 92% OR GREATER NIPPV NEEDED FOR INCREASED RESPIRATORY DISTRESS DAILY WTS F/U CHEST X-RAYS MONITOR LYTES,RENAL FUNCTION RENAL ULTRASOUND RATE CONTROL DR ALVAREZ Problem List - Problems (1) Acute renal insufficiency Code(s): N28.9 - DISORDER OF KIDNEY AND URETER, UNSPECIFIED (2) Atrial fibrillation Code(s): I48.91 - UNSPECIFIED ATRIAL FIBRILLATION (3) CHF (congestive heart failure) Code(s): I50.9 - HEART FAILURE, UNSPECIFIED Qualifiers: (4) Dyspnea Code(s): R06.00 - DYSPNEA, UNSPECIFIED (5) Acute respiratory failure with hypoxia Code(s): J96.01 - ACUTE RESPIRATORY FAILURE WITH HYPOXIA (6) Cardiomyopathy Code(s): I42.9 - CARDIOMYOPATHY, UNSPECIFIED (7) Essential (primary) hypertension Code(s): I10 - ESSENTIAL (PRIMARY) HYPERTENSION
--- NOTE | 2018-01-26 12:35 | CONS ---
DATE OF CONSULTATION: 01/26/2018 REFERRING PHYSICIAN: Jael Scherer MD The patient is a 62-year-old black male known to me from previous hospitalization with extensive past medical history that includes hypertension; prostate cancer, status post prostatectomy in 2007 at [facility]; history of brain AVM, status post repair in 2000; recent congestive heart failure; cardiomyopathy; atrial fibrillation; admitted to [facility] with increasing shortness of breath and dyspnea on exertion for 2 days' duration. According to the patient, the past couple of days, he started noticing mild increase in lower extremity edema and dyspnea on exertion. Yesterday, symptoms significantly worsened. He initially did not seek medical attention. Last night, he presented to the emergency room with acute respiratory distress. At the time, he was treated with Lasix as well as placed on BiPAP secondary to hypoxemic respiratory failure. He responded well to Lasix and transferred to medical telemetry unit for further monitoring and treatment. Patient was recently hospitalized approximately 3 weeks ago secondary to cardiomyopathy. At the time, he was noted to have severe LV dysfunction and global hypokinesia. He was transferred to [facility] and, apparently, underwent a cardiac catheterization and he was told this was normal. He also had 2 attempts at cardioversion, which were unsuccessful. He was placed on amiodarone and continued on anticoagulation. Patient has a history of tobacco use; he quit greater than 20 years ago. He is a retired senior supplier quality engineer.. He denies any history of occupational exposures to chemicals or fumes. PAST MEDICAL HISTORY: Again, includes hypertension; prostate CA, status post prostatectomy in 2007; brain AVM, status post repair in 2000; cardiomyopathy; atrial fibrillation. REVIEW OF SYSTEMS: Positive orthopnea, positive dyspnea, positive cough. No chest pain, no palpitations, no nausea, no vomiting, no diaphoresis, no abdominal pain. Positive lower extremity edema. CURRENT MEDICATIONS: Cordarone; Eliquis; Lopressor; Apresoline; Lipitor; Lasix; Aldactone; Isordil; and aspirin. PHYSICAL EXAMINATION: General: The patient is a well-developed, well-nourished male, awake, alert, currently in no acute distress. He is on 100% nonrebreather mask. Vital Signs: O2 saturation is 93%. He is afebrile with a heart rate of 72 and regular, blood pressure 131/93, respiratory rate is 21. HEENT: Normocephalic, atraumatic. Neck: Supple. Heart: Irregular with S1, S2. Chest: Bilateral crackles . Abdomen: Soft, bowel sounds are positive. Extremities: Bilateral lower extremity edema. LABORATORIES: WBC is 9.9, hemoglobin 15.4, hematocrit 47.3 with a platelet count of 296. INR is 1.72. Blood gas pH of 7.40, pCO2 of 39.9, pO2 of 134, bicarbonate of 23.7, and a saturation of 98.7; that is on an unknown quantity of oxygen. BUN is 25, creatinine 2.4. I have noticed on previous admission his creatinine was 1.4. BNP is 8920. Hemoglobin A1c is 62.2. Chest x-ray reveals cardiomegaly, bilateral pulmonary vascular congestion, consistent with acute pulmonary edema. IMPRESSION: 1. Acute hypoxemic respiratory failure secondary to decompensated congestive heart failure. 2. [id number] congestive heart failure secondary to cardiomyopathy. 3. Atrial fibrillation. 4. Acute kidney injury, likely superimposed on chronic kidney disease. 5. History of prostate cancer, status post prostatectomy. 6. History of left lower lobe nodule, as noted on previous CT scan on December 25, 2017, which revealed no change in overall size, but mild increased density. 7. History of brain arteriovenous malformation. PLAN: To continue IV Lasix, supplemental O2, ultimately noninvasive positive-pressure ventilation. Attempt to reduce FiO2 to maintain O2 saturation 92% or greater. Daily weights, continue anticoagulation. Also, cardiology followup. Rate control, as per cardiology. Followup chest x-ray.F/u chest ct outpatient Wendy BOJORQUEZ/[id number] MTDD
[2018-01-26] MEDS ORDERED: FUROSEMIDE 40 MG/4 ML INJECTABLE VIAL IVPUSH SCH (14:00)
[2018-01-26 14:27] VITALS: BMI 33.6
--- NOTE | 2018-01-26 14:30 | EKG ---
Test Reason : Blood Pressure : / mmHG Vent. Rate : 070 BPM Atrial Rate : 070 BPM P-R Int : 176 ms QRS Dur : 122 ms QT Int : 440 ms P-R-T Axes : 009 -24 014 degrees QTc Int : 475 ms NORMAL SINUS RHYTHM POSSIBLE LEFT ATRIAL ENLARGEMENT LEFT BUNDLE BRANCH BLOCK ABNORMAL ECG WHEN COMPARED WITH ECG OF 23-DEC-2017 16:25, SINUS RHYTHM HAS REPLACED ATRIAL FIBRILLATION LEFT BUNDLE BRANCH BLOCK IS NOW PRESENT CRITERIA FOR ANTEROSEPTAL INFARCT ARE NO LONGER PRESENT Confirmed by MD Baxter Daniel ([id number]) on 01/26/2018 2:30:21 PM Referred By: Confirmed By:Nestor Baxter MD
[2018-01-26] MEDS: FUROSEMIDE 40 MG/4 ML INJECTABLE VIAL IVPUSH SCH (15:36)
--- NOTE | 2018-01-26 16:44 | CON.CARD ---
Consult Consult Specialty:: Cardiology Reason for Consultation:: CHF - History of Present Illness Chief Complaint: RATLIFF History of Present Illness: This is a 62 year old male with a PMH of HTN, Prostate Ca s/p prostatectomy ( 2007), brain AVM s/p repair (2000), and AFIB. He has systolic CHF with an echocardiogram at [facility] 12/29/17 showing an EF of 15% with moderate MR. A cardiac cath performed 12/26/17 showed non obstructive CORS with minimal luminal irregularities and elevated LVEDP. He presents now with worsening RATLIFF and resting SOB. He denies an increase dietary sodium intake. He has significantly improved after BiPAP and IV Lasix. EKG 01/26/18 NSR with a LBBB CXR 01/26/18 Congestive changes with pleural fluid BNP 8920 Presently comfortable. = - Past Medical History Cardio/Vascular: Yes: HTN - Alcohol/Substance Use Hx Alcohol Use: No - Smoking History Smoking history: Former smoker Have you smoked in the past 12 months: No If you are a former smoker, when did you quit?: 1989 Home Medications - Allergies Allergies/Adverse Reactions: Allergies Allergy/AdvReac Type Severity Reaction Status Date / Time No Known Allergies Allergy Verified 01/26/18 01:52 - Home Medications Home Medications: Ambulatory Orders Amiodarone HCl [Cordarone -] 200 mg PO DAILY 01/26/18 Apixaban [Eliquis] 5 mg PO BID 01/26/18 Furosemide [Lasix -] 80 mg PO BID 01/26/18 Hydralazine HCl 25 mg PO BID 01/26/18 Isosorbide Dinitrate [Isordil -] 20 mg PO BID 01/26/18 Metoprolol Tartrate [Lopressor] 100 mg PO BID 01/26/18 Spironolactone [Aldactone] 25 mg PO DAILY 01/26/18 Valsartan [Diovan] 80 mg PO Q12H 01/26/18 Review of Systems Findings/Remarks: As per HPI Vital Signs: Vital Signs Temperature 98 F 01/26/18 13:41 Pulse Rate 65 01/26/18 13:41 Respiratory Rate 20 01/26/18 13:41 Blood Pressure 122/92 01/26/18 13:41 O2 Sat by Pulse Oximetry (%) 97 01/26/18 13:41 Constitutional: Yes: Well Nourished, No Distress Eyes: Yes: WNL, Sclera Icterus Neck: Yes: WNL Respiratory: Yes: Dullness (Bibasilar dullness and scattered minmal rales) Gastrointestinal: Yes: Soft Cardiovascular: Yes: Regular Rate and Rhythm Heart Sounds: Yes: S1, S2 (2/6 HSM apex to axilla) Edema: LLE: Trace, RLE: Trace Neurological: Yes: Alert, Oriented (Non focal) - Other Data Labs, Other Data: CBC, BMP 01/26/18 02:20 01/26/18 03:35 INR, PTT INR 1.72 (0.82-1.09) H D 01/26/18 02:20 Troponin, BNP 01/26/18 01/26/18 01/26/18 02:20 02:20 03:35 Troponin I Cancelled B-Natriuretic Peptide Cancelled 8920.94 H 01/26/18 03:35 Troponin I 0.02 D B-Natriuretic Peptide Troponin, BNP 01/26/18 01/26/18 01/26/18 02:20 02:20 03:35 Troponin I Cancelled B-Natriuretic Peptide Cancelled 8920.94 H 01/26/18 03:35 Troponin I 0.02 D B-Natriuretic Peptide Assessment/Plan CHF: Acute on chronic systolic Lasix 80 mg IVSS BID Daily I's/O's/Wt's/Lytes Continue Aldactone 25 mg PO daily Continue Hydralazine/Isordil combination Hold ARB for now AFIB: Presently in NSR Continue Amiodarone 200 mg daily Metoprolol Tartrate 100 mg PO BID Continue Apixaban 5 mg PO BID Seondary Prevention: Continue ASA 81 mg PO daily Continue Lipitor 80 mg PO daily
[2018-01-26 20:09] LABS: URINE APPEARANCE CLEAR; URINE BILIRUBIN NEGATIVE (<2.0 mg/dL); URINE COLOR LTYELLOW; URINE GLUCOSE (UA) NEGATIVE (NEGATIVE); URINE KETONE NEGATIVE (NEGATIVE); URINE LEUK ESTERASE NEGATIVE (NEGATIVE); URINE NITRITE NEGATIVE (NEGATIVE); URINE PROTEIN NEGATIVE (NEGATIVE); URINE UROBILINOGEN NEGATIVE mg/dL (0.2-1.0)
[2018-01-26 20:11] LABS: URINE CREATININE 45.9 mg/dL (20-370); URINE HYALINE CAST 7 /lpf; URINE MUCUS RARE
[2018-01-26 20:14] LABS: URINE CREATININE 45.9 mg/dL (20-370)
[2018-01-26 20:15] LABS: RATIO URIN PROTEIN/URIN CREAT 0.13 MG/DL
[2018-01-27] MEDS: FUROSEMIDE 40 MG/4 ML INJECTABLE VIAL IVPUSH SCH ×2 (06:31→15:00)
[2018-01-27 06:49] LABS: BASO % 0.8 % (0-2.0); HEMATOCRIT 41.3 % (35.4-49); HEMOGLOBIN 13.5 GM/dL (11.7-16.9); LYMPH % 12.4 % (8-40); MCH 24.5 pg (25.7-33.7); MCHC 32.8 g/dl (32.0-35.9); MEAN CELL VOLUME 74.6 fl (80-96); MEAN PLT VOLUME 9.9 fl (7.5-11.1); NEUT % 70.8 % (42.8-82.8); PLATELET COUNT 191 K/MM3 (134-434); RBC 5.53 M/mm3 (4.00-5.60); RDW 15.7 % (11.9-15.9); WHITE BLOOD COUNT 7.2 K/mm3 (4.0-10.0)
[2018-01-27 07:20] LABS: ALBUMIN 3.1 g/dl (3.4-5.0); ANION GAP 7 (8-16); BLOOD UREA NITROGEN 26 mg/dL (7-18); CALCIUM 8.3 mg/dL (8.5-10.1); CHLORIDE 106 mmol/L (98-107); CO2 29 mmol/L (21-32); GLUCOSE,RANDOM 80 mg/dL (74-106); MAGNESIUM 2.1 mg/dL (1.8-2.4); POTASSIUM 3.5 mmol/L (3.5-5.1); SODIUM 142 mmol/L (136-145)
[2018-01-27 07:32] LABS: ALK PHOS 92 U/L (45-117); BILIRUBIN,TOTAL 1.2 mg/dL (0.2-1.0); CHOLESTEROL 98 mg/dL (50-200); CREATININE 2.3 mg/dL (0.7-1.3); PHOSPHOROUS 4.3 mg/dL (2.5-4.9); SGOT/AST 19 U/L (15-37); SGPT/ALT 28 U/L (12-78); TOT PROT 6.8 g/dl (6.4-8.2)
--- NOTE | 2018-01-27 11:07 | PN ---
Progress Note, Physician History of Present Illness: PULMONARY feeling better,less dyspneic,on nasal cannula - Current Medication List Current Medications: Active Medications Amiodarone HCl (Cordarone -) 200 mg PO DAILY [facility] Last Admin: 01/26/18 10:10 Dose: 200 mg Apixaban (Eliquis -) 5 mg PO BID [facility] Last Admin: 01/26/18 21:25 Dose: 5 mg Aspirin (Asa -) 81 mg PO DAILY [facility] Atorvastatin Calcium (Lipitor -) 80 mg PO HS [facility] Furosemide (Lasix Injection -) 80 mg IVPUSH BID@0600,1400 [facility] Last Admin: 01/27/18 06:31 Dose: 80 mg Hydralazine HCl (Apresoline -) 25 mg PO BID [facility] Last Admin: 01/26/18 21:25 Dose: 25 mg Isosorbide Dinitrate (Isordil -) 20 mg PO BIDISORDIL [facility] Last Admin: 01/26/18 18:40 Dose: 20 mg Metoprolol Tartrate (Lopressor -) 100 mg PO BID [facility] Last Admin: 01/26/18 21:25 Dose: 100 mg Spironolactone (Aldactone -) 25 mg PO DAILY [facility] Last Admin: 01/26/18 10:10 Dose: 25 mg - Objective Vital Signs: Vital Signs Temperature 97.7 F 01/27/18 06:00 Pulse Rate 51 L 01/27/18 06:00 Respiratory Rate 20 01/27/18 06:00 Blood Pressure 129/90 01/27/18 06:00 O2 Sat by Pulse Oximetry (%) 96 01/27/18 07:58 Constitutional: Yes: Well Nourished, Calm Eyes: Yes: WNL HENT: Yes: WNL Neck: Yes: WNL Cardiovascular: Yes: Pulse Irregular, S1, S2 Respiratory: Yes: Rales (bibasilar rales) Gastrointestinal: Yes: Normal Bowel Sounds, Soft Extremities: Yes: WNL Edema: Yes Labs: CBC, BMP 01/27/18 06:30 01/27/18 06:30 INR, PTT INR 1.72 (0.82-1.09) H D 01/26/18 02:20 Problem List - Problems (1) Acute renal insufficiency Code(s): N28.9 - DISORDER OF KIDNEY AND URETER, UNSPECIFIED (2) Atrial fibrillation Code(s): I48.91 - UNSPECIFIED ATRIAL FIBRILLATION (3) CHF (congestive heart failure) Code(s): I50.9 - HEART FAILURE, UNSPECIFIED Qualifiers: (4) Dyspnea Code(s): R06.00 - DYSPNEA, UNSPECIFIED (5) Acute respiratory failure with hypoxia Code(s): J96.01 - ACUTE RESPIRATORY FAILURE WITH HYPOXIA (6) Cardiomyopathy Code(s): I42.9 - CARDIOMYOPATHY, UNSPECIFIED (7) Essential (primary) hypertension Code(s): I10 - ESSENTIAL (PRIMARY) HYPERTENSION Assessment/Plan IMP ACUTE HYPOXEMIC RESPIRATORY FAILURE ACUTE ON CHRONIC CHF CARDIOMYOPATHY WITH SEVERE LV DYSFUNCTION AFIB ACUTE ON LIKELY CHRONIC KIDNEY DISEASE H/O PROSTATE CA S/P PROSTATECTOMY H/O BRAIN AVM HTN LLL PULMONARY NODULE PLAN IV LASIX SUPPLEMENTAL O2 TO MAINTAIN O2 SAT 92% OR GREATER NIPPV NEEDED FOR INCREASED RESPIRATORY DISTRESS DAILY WTS F/U CHEST X-RAYS MONITOR LYTES,RENAL FUNCTION RATE CONTROL SLEEP SCREEN DR ALVAREZ Problem List - Problems (1) Acute renal insufficiency Code(s): N28.9 - DISORDER OF KIDNEY AND URETER, UNSPECIFIED (2) Atrial fibrillation Code(s): I48.91 - UNSPECIFIED ATRIAL FIBRILLATION (3) CHF (congestive heart failure) Code(s): I50.9 - HEART FAILURE, UNSPECIFIED Qualifiers: (4) Dyspnea Code(s): R06.00 - DYSPNEA, UNSPECIFIED (5) Acute respiratory failure with hypoxia Code(s): J96.01 - ACUTE RESPIRATORY FAILURE WITH HYPOXIA (6) Cardiomyopathy Code(s): I42.9 - CARDIOMYOPATHY, UNSPECIFIED (7) Essential (primary) hypertension Code(s): I10 - ESSENTIAL (PRIMARY) HYPERTENSION
[2018-01-27] MEDS: SPIRONOLACTONE 25 MG TABLET (FP) PO SCH (11:47)
[2018-01-27] MEDS: hydrALAZINE HCL 25 MG TABLET (FP) PO SCH ×2 (11:48→22:12)
[2018-01-27] MEDS: AMIODARONE HCL 200 MG TABLET (FP) PO SCH (11:48)
[2018-01-27] MEDS: APIXABAN 5 MG TABLET PO SCH ×2 (11:49→22:12)
[2018-01-27] MEDS: ASPIRIN 81 MG CHEWABLE TABLETS PO SCH (11:54)
[2018-01-27] MEDS: METOPROLOL TARTRATE 50 MG TABLET (FP) PO SCH ×3 (11:55→22:12)
[2018-01-27] MEDS: ISOSORBIDE DINITRATE 20 MG TABLET (FP) PO SCH ×2 (11:55→18:46)
--- NOTE | 2018-01-27 12:38 | PN ---
Physical Exam: SUBJECTIVE: Patient seen and examined. Feels better this am. still on intranasal oxygen. Does not use home oxygen. Patient feels the breathing has improved and he has lost some weight. OBJECTIVE: Vital Signs Period Temp Pulse Resp BP Sys/Alexandra Pulse Ox Last 24 Hr 97.6 F-98.6 F 46-65 20-20 118-141/71-96 96-97 Vital Signs Temp 98 F 01/27/18 14:00 Pulse 60 01/27/18 14:00 Resp 20 01/27/18 14:00 BP 114/83 01/27/18 14:00 Pulse Ox 94 L 01/27/18 15:00 Intake & Output 01/26/18 01/27/18 01/27/18 23:59 11:59 23:59 Intake Total 30 Output Total 650 Balance -650 30 Weight 115.723 kg 115.269 kg Intake: IV 30 Saline lock 30 Output: Urine 650 Void 650 Other: Voiding Method Urinal Urinal Urinal Height 1.85 m Body Mass Index (BMI) 33.6 Weight Measurement Method Standing Scale GENERAL: The patient is awake, alert, and fully oriented, in no acute distress. HEAD: Normal with no signs of trauma. EYES: PERRL, extraocular movements intact, ENT: moist mucous membranes. NECK: supple. LUNGS: Breath sounds equal, clear to auscultation bilaterally, no wheezes, no crackles HEART: Regular rate normal rhythm with a few ectopics, S1, S2 ABDOMEN: Soft, nontender, nondistended, normoactive bowel sounds, EXTREMITIES: 2+ pulses, warm, well-perfused, no pitting edema. NEUROLOGICAL: Cranial nerves II through XII grossly intact. Normal speech, gait not observed. PSYCH: Normal mood, normal affect. SKIN: Warm, dry Laboratory Results - last 24 hr 01/26/18 01/26/18 01/26/18 18:50 18:50 18:50 WBC RBC Hgb Hct MCV MCH MCHC RDW Plt Count MPV Neutrophils % Lymphocytes % Monocytes % Eosinophils % Basophils % Sodium Potassium Chloride Carbon Dioxide Anion Gap BUN Creatinine Creat Clearance w eGFR Random Glucose Calcium Phosphorus Magnesium Total Bilirubin AST ALT Alkaline Phosphatase Troponin I Total Protein Albumin Cholesterol TSH Free T4 Urine Color Ltyellow Urine Appearance Clear Urine pH 6.0 Ur Specific [place] 1.006 Urine Protein Negative Urine Glucose (UA) Negative Urine Ketones Negative Urine Blood 1+ H Urine Nitrite Negative Urine Bilirubin Negative Urine Urobilinogen Negative Ur Leukocyte Esterase Negative Urine WBC (Auto) <1 Urine RBC (Auto) 6 Hyaline Casts 7 Urine Mucus Rare U Random Total Protein 6 Ur Random Sodium 78 Ur Random Potassium 21.8 Ur Random Chloride 93 Ur Random Urea Nitrogn Urine Creatinine 45.9 Protein/Creatinin Ratio 0.13 01/26/18 01/26/18 01/27/18 18:50 18:50 06:30 WBC 7.2 RBC 5.53 Hgb 13.5 D Hct 41.3 MCV 74.6 L MCH 24.5 L MCHC 32.8 RDW 15.7 Plt Count 191 D MPV 9.9 Neutrophils % 70.8 Lymphocytes % 12.4 D Monocytes % 10.0 D Eosinophils % 6.0 H D Basophils % 0.8 Sodium Potassium Chloride Carbon Dioxide Anion Gap BUN Creatinine Creat Clearance w eGFR Random Glucose Calcium Phosphorus Magnesium Total Bilirubin AST ALT Alkaline Phosphatase Troponin I Total Protein Albumin Cholesterol TSH Free T4 Urine Color Urine Appearance Urine pH Ur Specific [place] Urine Protein Urine Glucose (UA) Urine Ketones Urine Blood Urine Nitrite Urine Bilirubin Urine Urobilinogen Ur Leukocyte Esterase Urine WBC (Auto) Urine RBC (Auto) Hyaline Casts Urine Mucus U Random Total Protein 6 Ur Random Sodium Ur Random Potassium Ur Random Chloride Ur Random Urea Nitrogn 241 Urine Creatinine 45.9 Protein/Creatinin Ratio 01/27/18 01/27/18 06:30 06:30 WBC RBC Hgb Hct MCV MCH MCHC RDW Plt Count MPV Neutrophils % Lymphocytes % Monocytes % Eosinophils % Basophils % Sodium 142 Potassium 3.5 Chloride 106 Carbon Dioxide 29 D Anion Gap 7 L BUN 26 H Creatinine 2.3 H Creat Clearance w eGFR 28.96 Random Glucose 80 D Calcium 8.3 L Phosphorus 4.3 Magnesium 2.1 Total Bilirubin 1.2 H AST 19 ALT 28 Alkaline Phosphatase 92 Troponin I 0.03 D Total Protein 6.8 Albumin 3.1 L Cholesterol 98 D TSH 4.03 H D Free T4 1.40 H Urine Color Urine Appearance Urine pH Ur Specific [place] Urine Protein Urine Glucose (UA) Urine Ketones Urine Blood Urine Nitrite Urine Bilirubin Urine Urobilinogen Ur Leukocyte Esterase Urine WBC (Auto) Urine RBC (Auto) Hyaline Casts Urine Mucus U Random Total Protein Ur Random Sodium Ur Random Potassium Ur Random Chloride Ur Random Urea Nitrogn Urine Creatinine Protein/Creatinin Ratio Active Medications Generic Name Dose Route Start Last Admin Trade Name Freq PRN Reason Stop Dose Admin Amiodarone HCl 200 mg 01/26/18 10:00 01/27/18 11:48 Cordarone - PO 200 mg DAILY [facility] Administration Apixaban 5 mg 01/26/18 10:00 01/27/18 11:49 Eliquis - PO 5 mg BID [facility] Administration Aspirin 81 mg 01/27/18 10:00 01/27/18 11:54 Asa - PO 81 mg DAILY [facility] Administration Atorvastatin Calcium 80 mg 01/27/18 22:00 Lipitor - PO HS [facility] Furosemide 80 mg 01/26/18 16:00 01/27/18 06:31 Lasix Injection - IVPUSH 80 mg BID@0600,1400 [facility] Administration Hydralazine HCl 25 mg 01/26/18 10:00 01/27/18 11:48 Apresoline - PO 25 mg BID [facility] Administration Isosorbide Dinitrate 20 mg 01/26/18 10:00 01/27/18 11:55 Isordil - PO 20 mg BIDISORDIL [facility] Administration Metoprolol Tartrate 100 mg 01/26/18 10:00 01/27/18 11:55 Lopressor - PO Not Given BID [facility] Spironolactone 25 mg 01/26/18 10:00 01/27/18 11:47 Aldactone - PO 25 mg DAILY [facility] Administration EKG: LBBB, left atrial enlargement, NSR ECHO: 12/2017: 25-30% EJF, LV mildly dilated, LV systolic function moderate-to severely reduced, global hypokinesis, mild-moderate MR, trace TR. ASSESSMENT/PLAN: Pt is 62 yo M with a signif PMHx of HTN, prostate cancer s/p prostatectomy (2007 ), and brain AVM s/p repair (2000), CHF, Afib, presented with SOB and admitted for CHF exacerbation with GERALDINE Acute on chronic systolic heart failure IV lasix 80 bid continue daily weight Intake and output monitoring. lopressor [address] gamez started on aspirin 81 daily. Continue lipitor. patient should be evaluated for ICD losartan on hold for geraldine repeat echo continue isosorbide dinitrate 20 bid Monitor off oxygen- sating around 95% on room air Afib: now sinus rhythm on rate and rhythm. continue eliquis continue amiadarone continue lopressor get tsh, t4 patinet recently started on amiadarone. GERALDINE Dr Ram following D/W Dr Ram- pt can cont iv diuresis at 80mg bid to be switched to PO Continue to monitor off losartan monitor creatinine avoid nephrotoxic drugs. renal usg - non obstructive L calculus, L pleural effusion HTN continue Lopressor hold losartan contninue hdralazine fluid: avoid electrolyte: repeat in am nutrition: low salt diet dvt pro: on eliquis gi pro: not rquired dispo: admit tele. Visit type - Emergency Visit Emergency Visit: Yes ED Registration Date: 01/26/18 Care time: The patient presented to the Emergency Department on the above date and was hospitalized for further evaluation of their emergent condition. - New Patient This patient is new to me today: Yes Date on this admission: 01/27/18 - Critical Care Critical Care patient: No - Discharge Referral Referred to [facility] Med P.C.: No
--- NOTE | 2018-01-27 14:15 | PN ---
Teaching Attending Note Name of Resident: Alivia Gallegos ATTENDING PHYSICIAN STATEMENT I saw and evaluated the patient. I reviewed the resident's note and discussed the case with the resident. I agree with the resident's findings and plan as documented. SUBJECTIVE: Patient feels better today. OBJECTIVE: Vital Signs Period Temp Pulse Resp BP Sys/Alexandra Pulse Ox Last 24 Hr 97.6 F-98.6 F 46-65 20-20 118-141/71-96 96-97 HEART: S1S2, RRR LUNGS: Rales at right base ABDOMEN: Obese, soft, non-tender, non-distended, normal BS EXTREMITIES: Trace edema Laboratory Results - last 24 hr 01/26/18 01/26/18 01/26/18 18:50 18:50 18:50 WBC RBC Hgb Hct MCV MCH MCHC RDW Plt Count MPV Neutrophils % Lymphocytes % Monocytes % Eosinophils % Basophils % Sodium Potassium Chloride Carbon Dioxide Anion Gap BUN Creatinine Creat Clearance w eGFR Random Glucose Calcium Phosphorus Magnesium Total Bilirubin AST ALT Alkaline Phosphatase Troponin I Total Protein Albumin Cholesterol TSH Free T4 Urine Color Ltyellow Urine Appearance Clear Urine pH 6.0 Ur Specific [place] 1.006 Urine Protein Negative Urine Glucose (UA) Negative Urine Ketones Negative Urine Blood 1+ H Urine Nitrite Negative Urine Bilirubin Negative Urine Urobilinogen Negative Ur Leukocyte Esterase Negative Urine WBC (Auto) <1 Urine RBC (Auto) 6 Hyaline Casts 7 Urine Mucus Rare U Random Total Protein 6 Ur Random Sodium 78 Ur Random Potassium 21.8 Ur Random Chloride 93 Ur Random Urea Nitrogn Urine Creatinine 45.9 Protein/Creatinin Ratio 0.13 01/26/18 01/26/18 01/27/18 18:50 18:50 06:30 WBC 7.2 RBC 5.53 Hgb 13.5 D Hct 41.3 MCV 74.6 L MCH 24.5 L MCHC 32.8 RDW 15.7 Plt Count 191 D MPV 9.9 Neutrophils % 70.8 Lymphocytes % 12.4 D Monocytes % 10.0 D Eosinophils % 6.0 H D Basophils % 0.8 Sodium Potassium Chloride Carbon Dioxide Anion Gap BUN Creatinine Creat Clearance w eGFR Random Glucose Calcium Phosphorus Magnesium Total Bilirubin AST ALT Alkaline Phosphatase Troponin I Total Protein Albumin Cholesterol TSH Free T4 Urine Color Urine Appearance Urine pH Ur Specific [place] Urine Protein Urine Glucose (UA) Urine Ketones Urine Blood Urine Nitrite Urine Bilirubin Urine Urobilinogen Ur Leukocyte Esterase Urine WBC (Auto) Urine RBC (Auto) Hyaline Casts Urine Mucus U Random Total Protein 6 Ur Random Sodium Ur Random Potassium Ur Random Chloride Ur Random Urea Nitrogn 241 Urine Creatinine 45.9 Protein/Creatinin Ratio 01/27/18 01/27/18 06:30 06:30 WBC RBC Hgb Hct MCV MCH MCHC RDW Plt Count MPV Neutrophils % Lymphocytes % Monocytes % Eosinophils % Basophils % Sodium 142 Potassium 3.5 Chloride 106 Carbon Dioxide 29 D Anion Gap 7 L BUN 26 H Creatinine 2.3 H Creat Clearance w eGFR 28.96 Random Glucose 80 D Calcium 8.3 L Phosphorus 4.3 Magnesium 2.1 Total Bilirubin 1.2 H AST 19 ALT 28 Alkaline Phosphatase 92 Troponin I 0.03 D Total Protein 6.8 Albumin 3.1 L Cholesterol 98 D TSH 4.03 H D Free T4 1.40 H Urine Color Urine Appearance Urine pH Ur Specific [place] Urine Protein Urine Glucose (UA) Urine Ketones Urine Blood Urine Nitrite Urine Bilirubin Urine Urobilinogen Ur Leukocyte Esterase Urine WBC (Auto) Urine RBC (Auto) Hyaline Casts Urine Mucus U Random Total Protein Ur Random Sodium Ur Random Potassium Ur Random Chloride Ur Random Urea Nitrogn Urine Creatinine Protein/Creatinin Ratio Current Medications Generic Name Dose Route Start Last Admin Trade Name Freq PRN Reason Stop Dose Admin Amiodarone HCl 200 mg 01/26/18 10:00 01/27/18 11:48 Cordarone - PO 200 mg DAILY [facility] Administration Apixaban 5 mg 01/26/18 10:00 01/27/18 11:49 Eliquis - PO 5 mg BID [facility] Administration Aspirin 81 mg 01/27/18 10:00 01/27/18 11:54 Asa - PO 81 mg DAILY [facility] Administration Atorvastatin Calcium 80 mg 01/27/18 22:00 Lipitor - PO HS [facility] Furosemide 80 mg 01/26/18 16:00 01/27/18 06:31 Lasix Injection - IVPUSH 80 mg BID@0600,1400 [facility] Administration Hydralazine HCl 25 mg 01/26/18 10:00 01/27/18 11:48 Apresoline - PO 25 mg BID [facility] Administration Isosorbide Dinitrate 20 mg 01/26/18 10:00 01/27/18 11:55 Isordil - PO 20 mg BIDISORDIL [facility] Administration Metoprolol Tartrate 100 mg 01/26/18 10:00 01/27/18 11:55 Lopressor - PO Not Given BID [facility] Spironolactone 25 mg 01/26/18 10:00 01/27/18 11:47 Aldactone - PO 25 mg DAILY [facility] Administration ASSESSMENT AND PLAN: This is a 62 year old man with a history of HTN, prostate cancer, prostatectomy , brain AVM and repair, chronic systolic heart failure, a fib who presented to the ED with shortness of breath. 1. Acute on chronic systolic heart failure - Improving - Continue Lasix IV, Aldactone, Isordil, Hydralazine, Lopressor - I&O - Daily weight - Diovan held secondary to GERALDINE 2. Acute kidney injury, possible cardiorenal syndrome - Diovan held - Monitor creatinine with diuresis 3. History of atrial fibrillation - Remains in sinus rhythm - Continue Amiodarone, Lopressor, Eliquis
--- NOTE | 2018-01-27 16:00 | PN ---
Progress Note, Physician Chief Complaint: SOB improved History of Present Illness: This is a 62 year old male with a PMH of HTN, Prostate Ca s/p prostatectomy ( 2007), brain AVM s/p repair (2000), and AFIB. He has systolic CHF with an echocardiogram at [facility] 12/29/17 showing an EF of 15% with moderate MR. A cardiac cath performed 12/26/17 showed non obstructive CORS with minimal luminal irregularities and elevated LVEDP. He presents now with worsening RATILFF and resting SOB. He denies an increase dietary sodium intake. He has significantly improved after BiPAP and IV Lasix. EKG 01/26/18 NSR with a LBBB CXR 01/26/18 Congestive changes with pleural fluid BNP 8920 Presently comfortable. - Current Medication List Current Medications: Active Medications Amiodarone HCl (Cordarone -) 200 mg PO DAILY [facility] Last Admin: 01/27/18 11:48 Dose: 200 mg Apixaban (Eliquis -) 5 mg PO BID [facility] Last Admin: 01/27/18 11:49 Dose: 5 mg Aspirin (Asa -) 81 mg PO DAILY [facility] Last Admin: 01/27/18 11:54 Dose: 81 mg Atorvastatin Calcium (Lipitor -) 80 mg PO HS [facility] Furosemide (Lasix Injection -) 80 mg IVPUSH BID@0600,1400 [facility] Last Admin: 01/27/18 15:00 Dose: 80 mg Hydralazine HCl (Apresoline -) 25 mg PO BID [facility] Last Admin: 01/27/18 11:48 Dose: 25 mg Isosorbide Dinitrate (Isordil -) 20 mg PO BIDISORDIL [facility] Last Admin: 01/27/18 11:55 Dose: 20 mg Metoprolol Tartrate (Lopressor -) 100 mg PO BID [facility] Last Admin: 01/27/18 13:51 Dose: 100 mg Spironolactone (Aldactone -) 25 mg PO DAILY [facility] Last Admin: 01/27/18 11:47 Dose: 25 mg - Objective Vital Signs: Vital Signs Temperature 98 F 01/27/18 14:00 Pulse Rate 60 01/27/18 14:00 Respiratory Rate 20 01/27/18 14:00 Blood Pressure 114/83 01/27/18 14:00 O2 Sat by Pulse Oximetry (%) 96 01/27/18 07:58 Constitutional: Yes: No Distress Neck: Yes: WNL Cardiovascular: Yes: JVD, S1, S2 Respiratory: Yes: Diminished (at bases) Gastrointestinal: Yes: Normal Bowel Sounds, Soft Edema: LLE: Trace, RLE: Trace Labs: CBC, BMP 01/27/18 06:30 01/27/18 06:30 INR, PTT INR 1.72 (0.82-1.09) H D 01/26/18 02:20 Assessment/Plan This is a 62 year old male with a PMH of HTN, Prostate Ca s/p prostatectomy ( 2007), brain AVM s/p repair (2000), and AFIB. He has systolic CHF with an echocardiogram at [facility] 12/29/17 showing an EF of 15% with moderate MR. A cardiac cath performed 12/26/17 showed non obstructive CORS with minimal luminal irregularities and elevated LVEDP admitted with acute on chronic systolic chf exacerbation. 1) Acute on chronic systolic chf Cont IV furosemide 80mg bid Monitor daily weights, lytes, and I/O's On metoprolol, spironolactone, and hydralazine/isosorbide Arb on hold 2) Afib On metoprolol and apixaban
--- NOTE | 2018-01-27 18:29 | PN ---
Progress Note (short form) - Note Progress Note: Renal Follow up for GERALDINE Pt seen and examined at the bedside awake and alert sob improved making urine no CP, fever Vital Signs Temperature 97.7 F 01/27/18 17:00 Pulse Rate 53 L 01/27/18 17:00 Respiratory Rate 20 01/27/18 17:00 Blood Pressure 122/78 01/27/18 17:00 O2 Sat by Pulse Oximetry (%) 94 L 01/27/18 15:00 Intake & Output 01/24/18 01/25/18 01/26/18 01/27/18 23:59 23:59 23:59 23:59 Intake Total 30 Output Total 1150 Balance -1150 30 Weight 115.723 kg 115.269 kg NAD awake and alert MMM irregular, no M/R Dec Bs at both lung bases, no wheeze, rales soft NT/ND trace LE edema CBC, BMP 01/27/18 06:30 01/27/18 06:30 Current Medications Amiodarone HCl (Cordarone -) 200 mg PO DAILY [facility] Last Admin: 01/27/18 11:48 Dose: 200 mg Apixaban (Eliquis -) 5 mg PO BID [facility] Last Admin: 01/27/18 11:49 Dose: 5 mg Aspirin (Asa -) 81 mg PO DAILY [facility] Last Admin: 01/27/18 11:54 Dose: 81 mg Atorvastatin Calcium (Lipitor -) 80 mg PO HS [facility] Furosemide (Lasix Injection -) 80 mg IVPUSH BID@0600,1400 [facility] Last Admin: 01/27/18 15:00 Dose: 80 mg Hydralazine HCl (Apresoline -) 25 mg PO BID [facility] Last Admin: 01/27/18 11:48 Dose: 25 mg Isosorbide Dinitrate (Isordil -) 20 mg PO BIDISORDIL [facility] Last Admin: 01/27/18 11:55 Dose: 20 mg Metoprolol Tartrate (Lopressor -) 100 mg PO BID [facility] Last Admin: 01/27/18 13:51 Dose: 100 mg Spironolactone (Aldactone -) 25 mg PO DAILY [facility] Last Admin: 01/27/18 11:47 Dose: 25 mg 62 year old gentleman with PMhx of Hypertension, Prostate Ca s/p prostatectomy, Brain AVM s/p repair, CHF, Afib? CKD who presented with SOB and admitted for acute on chronic HF with GERALDINE with Cr of 2.4. #GERALDNIE on possible CKD likely due to cardiorenal syndrome vs. KARINA/ATN (less likely given that contrast exposure was several weeks ago) #CHF Exacerbation #Hypertension Renal function stable at this time urine studies consistent with some tubular damage continue IV Lasix BID for now US showed no obstruction at this time Trend renal function and electrolytes while on IV lasix hold aRB for now Bari Ram DO
[2018-01-27] MEDS: ATORVASTATIN CA 80 MG TABLET (FP) PO SCH (22:11)
[2018-01-28] MEDS: FUROSEMIDE 40 MG/4 ML INJECTABLE VIAL IVPUSH SCH ×2 (06:00→13:02)
[2018-01-28 07:35] LABS: BASO % 1.3 % (0-2.0); EOS % 8.1 % (0-4.5); HEMOGLOBIN 13.9 GM/dL (11.7-16.9); LYMPH % 14.9 % (8-40); MCH 24.5 pg (25.7-33.7); MCHC 33.1 g/dl (32.0-35.9); MEAN PLT VOLUME 10.2 fl (7.5-11.1); MONO % 11.5 % (3.8-10.2); NEUT % 64.2 % (42.8-82.8); PLATELET COUNT 189 K/MM3 (134-434); RBC 5.67 M/mm3 (4.00-5.60); RDW 15.6 % (11.9-15.9); WHITE BLOOD COUNT 6.1 K/mm3 (4.0-10.0)
[2018-01-28 07:51] LABS: ALBUMIN 3.4 g/dl (3.4-5.0); ALK PHOS 97 U/L (45-117); ANION GAP 7 (8-16); BILIRUBIN,TOTAL 0.9 mg/dL (0.2-1.0); BLOOD UREA NITROGEN 25 mg/dL (7-18); CALCIUM 8.5 mg/dL (8.5-10.1); CHLORIDE 106 mmol/L (98-107); CO2 29 mmol/L (21-32); GLUCOSE,RANDOM 81 mg/dL (74-106); PHOSPHOROUS 3.8 mg/dL (2.5-4.9); POTASSIUM 3.4 mmol/L (3.5-5.1); SGOT/AST 18 U/L (15-37); SGPT/ALT 27 U/L (12-78); SODIUM 142 mmol/L (136-145); TOT PROT 7.3 g/dl (6.4-8.2)
--- NOTE | 2018-01-28 09:34 | PN ---
Progress Note, Physician Chief Complaint: Feels much better No sob but has not walked around yet Sinus on tele History of Present Illness: This is a 62 year old male with a PMH of HTN, Prostate Ca s/p prostatectomy ( 2007), brain AVM s/p repair (2000), and AFIB. He has systolic CHF with an echocardiogram at [facility] 12/29/17 showing an EF of 15% with moderate MR. A cardiac cath performed 12/26/17 showed non obstructive CORS with minimal luminal irregularities and elevated LVEDP. He presents now with worsening RATLIFF and resting SOB. He denies an increase dietary sodium intake. He has significantly improved after BiPAP and IV Lasix. EKG 01/26/18 NSR with a LBBB CXR 01/26/18 Congestive changes with pleural fluid BNP 8920 Presently comfortable. - Current Medication List Current Medications: Active Medications Amiodarone HCl (Cordarone -) 200 mg PO DAILY [facility] Last Admin: 01/27/18 11:48 Dose: 200 mg Apixaban (Eliquis -) 5 mg PO BID [facility] Last Admin: 01/27/18 22:12 Dose: 5 mg Aspirin (Asa -) 81 mg PO DAILY [facility] Last Admin: 01/27/18 11:54 Dose: 81 mg Atorvastatin Calcium (Lipitor -) 80 mg PO HS [facility] Last Admin: 01/27/18 22:11 Dose: Not Given Furosemide (Lasix Injection -) 80 mg IVPUSH BID@0600,1400 [facility] Last Admin: 01/28/18 06:00 Dose: 80 mg Hydralazine HCl (Apresoline -) 25 mg PO BID [facility] Last Admin: 01/27/18 22:12 Dose: 25 mg Isosorbide Dinitrate (Isordil -) 20 mg PO BIDISORDIL [facility] Last Admin: 01/27/18 18:46 Dose: 20 mg Metoprolol Tartrate (Lopressor -) 100 mg PO BID [facility] Last Admin: 01/27/18 22:12 Dose: 100 mg Spironolactone (Aldactone -) 25 mg PO DAILY [facility] Last Admin: 01/27/18 11:47 Dose: 25 mg - Objective Vital Signs: Vital Signs Temperature 98 F 01/28/18 08:37 Pulse Rate 57 L 01/28/18 08:37 Respiratory Rate 18 01/28/18 08:37 Blood Pressure 120/56 01/28/18 08:37 O2 Sat by Pulse Oximetry (%) 93 L 01/27/18 21:00 Constitutional: Yes: No Distress Neck: Yes: Supple Cardiovascular: Yes: Regular Rate and Rhythm, JVD, S1, S2 Respiratory: Yes: Rales (minimal bibasilar rales) Gastrointestinal: Yes: Normal Bowel Sounds, Soft Edema: LLE: Trace (warm), RLE: Trace (warm) Labs: CBC, BMP 01/28/18 07:10 01/28/18 07:10 INR, PTT INR 1.72 (0.82-1.09) H D 01/26/18 02:20 Assessment/Plan This is a 62 year old male with a PMH of HTN, Prostate Ca s/p prostatectomy ( 2007), brain AVM s/p repair (2000), and AFIB. He has systolic CHF with an echocardiogram at [facility] 12/29/17 showing an EF of 15% with moderate MR. A cardiac cath performed 12/26/17 showed non obstructive CORS with minimal luminal irregularities and elevated LVEDP admitted with acute on chronic systolic chf exacerbation. 1) Acute on chronic systolic chf Cont IV furosemide 80mg bid Monitor daily weights, lytes, and I/O's Cr three weeks ago was 1.6. Appears that GERALDINE is improving with diuresis likely cardiorenal. Would continue to diurese and monitor. On metoprolol, spironolactone, and hydralazine/isosorbide Arb on hold 2) Afib On metoprolol and apixaban
[2018-01-28] MEDS: APIXABAN 5 MG TABLET PO SCH ×2 (09:50→21:36)
[2018-01-28] MEDS: ISOSORBIDE DINITRATE 20 MG TABLET (FP) PO SCH ×2 (09:50→17:18)
[2018-01-28] MEDS: hydrALAZINE HCL 25 MG TABLET (FP) PO SCH ×2 (09:50→21:36)
[2018-01-28] MEDS: ASPIRIN 81 MG CHEWABLE TABLETS PO SCH (09:50)
[2018-01-28] MEDS: METOPROLOL TARTRATE 50 MG TABLET (FP) PO SCH ×2 (09:50→21:37)
[2018-01-28] MEDS: AMIODARONE HCL 200 MG TABLET (FP) PO SCH (09:51)
[2018-01-28] MEDS: SPIRONOLACTONE 25 MG TABLET (FP) PO SCH (09:51)
[2018-01-28] MEDS ORDERED: POTASSIUM CHLORIDE ORAL LIQUID 20 MEQ/15 ML PO ONE (10:00)
--- NOTE | 2018-01-28 10:26 | PN ---
Progress Note, Physician History of Present Illness: PULMONARY ALERT,FEELING BETTER,LESS DYSPNEIC. SLEEP SCREEN +SEVERE OSAS AHI 49.O - Current Medication List Current Medications: Active Medications Amiodarone HCl (Cordarone -) 200 mg PO DAILY [facility] Last Admin: 01/28/18 09:51 Dose: 200 mg Apixaban (Eliquis -) 5 mg PO BID [facility] Last Admin: 01/28/18 09:50 Dose: 5 mg Aspirin (Asa -) 81 mg PO DAILY [facility] Last Admin: 01/28/18 09:50 Dose: 81 mg Atorvastatin Calcium (Lipitor -) 80 mg PO HS [facility] Last Admin: 01/27/18 22:11 Dose: Not Given Furosemide (Lasix Injection -) 80 mg IVPUSH BID@0600,1400 [facility] Last Admin: 01/28/18 06:00 Dose: 80 mg Hydralazine HCl (Apresoline -) 25 mg PO BID [facility] Last Admin: 01/28/18 09:50 Dose: 25 mg Isosorbide Dinitrate (Isordil -) 20 mg PO BIDISORDIL [facility] Last Admin: 01/28/18 09:50 Dose: 20 mg Metoprolol Tartrate (Lopressor -) 100 mg PO BID [facility] Last Admin: 01/28/18 09:50 Dose: 100 mg Spironolactone (Aldactone -) 25 mg PO DAILY [facility] Last Admin: 01/28/18 09:51 Dose: 25 mg - Objective Vital Signs: Vital Signs Temperature 98 F 01/28/18 08:37 Pulse Rate 57 L 01/28/18 08:37 Respiratory Rate 18 01/28/18 08:37 Blood Pressure 120/56 01/28/18 08:37 O2 Sat by Pulse Oximetry (%) 93 L 01/27/18 21:00 Constitutional: Yes: Well Nourished, Calm Eyes: Yes: WNL HENT: Yes: WNL Neck: Yes: WNL Cardiovascular: Yes: Pulse Irregular, S1, S2 Respiratory: Yes: Rales (FEW BIBASILAR RALES) Gastrointestinal: Yes: Normal Bowel Sounds, Soft Extremities: Yes: WNL, Internal Rotation Edema: Yes Labs: CBC, BMP 01/28/18 07:10 01/28/18 07:10 INR, PTT INR 1.72 (0.82-1.09) H D 01/26/18 02:20 Problem List - Problems (1) Acute renal insufficiency Code(s): N28.9 - DISORDER OF KIDNEY AND URETER, UNSPECIFIED (2) Atrial fibrillation Code(s): I48.91 - UNSPECIFIED ATRIAL FIBRILLATION (3) CHF (congestive heart failure) Code(s): I50.9 - HEART FAILURE, UNSPECIFIED Qualifiers: (4) Dyspnea Code(s): R06.00 - DYSPNEA, UNSPECIFIED (5) Acute respiratory failure with hypoxia Code(s): J96.01 - ACUTE RESPIRATORY FAILURE WITH HYPOXIA (6) Cardiomyopathy Code(s): I42.9 - CARDIOMYOPATHY, UNSPECIFIED (7) Essential (primary) hypertension Code(s): I10 - ESSENTIAL (PRIMARY) HYPERTENSION Assessment/Plan IMP ACUTE HYPOXEMIC RESPIRATORY FAILURE IKMPROVED ACUTE ON CHRONIC CHF CARDIOMYOPATHY WITH SEVERE LV DYSFUNCTION AFIB ACUTE ON LIKELY CHRONIC KIDNEY DISEASE H/O PROSTATE CA S/P PROSTATECTOMY H/O BRAIN AVM PULMONARY HTN HTN LLL PULMONARY NODULE OSAS AHI 49 ON SLEEP SCREEN PLAN IV LASIX SUPPLEMENTAL O2 TO MAINTAIN O2 SAT 92% OR GREATER NIPPV NEEDED FOR INCREASED RESPIRATORY DISTRESS DAILY WTS F/U CHEST X-RAYS MONITOR LYTES,RENAL FUNCTION RATE CONTROL FORMAL SLEEP STUDIES OUTPATIENT DR ALVAREZ Problem List - Problems (1) Acute renal insufficiency Code(s): N28.9 - DISORDER OF KIDNEY AND URETER, UNSPECIFIED (2) Atrial fibrillation Code(s): I48.91 - UNSPECIFIED ATRIAL FIBRILLATION (3) CHF (congestive heart failure) Code(s): I50.9 - HEART FAILURE, UNSPECIFIED Qualifiers: (4) Dyspnea Code(s): R06.00 - DYSPNEA, UNSPECIFIED (5) Acute respiratory failure with hypoxia Code(s): J96.01 - ACUTE RESPIRATORY FAILURE WITH HYPOXIA (6) Cardiomyopathy Code(s): I42.9 - CARDIOMYOPATHY, UNSPECIFIED (7) Essential (primary) hypertension Code(s): I10 - ESSENTIAL (PRIMARY) HYPERTENSION
--- NOTE | 2018-01-28 14:33 | PN ---
Progress Note (short form) - Note Progress Note: Renal Follow up for GERALDINE Pt seen and examined in the [facility] no acute complaints no sob, chest pain, abd pain Vital Signs Temperature 98 F 01/28/18 08:37 Pulse Rate 75 01/28/18 10:39 Respiratory Rate 18 01/28/18 08:37 Blood Pressure 120/56 01/28/18 08:37 O2 Sat by Pulse Oximetry (%) 96 01/28/18 10:39 Intake & Output 01/25/18 01/26/18 01/27/18 01/28/18 23:59 23:59 23:59 23:59 Intake Total 460 150 Output Total 1150 1350 375 Balance -1150 -890 -225 Weight 115.723 kg 115.269 kg 114.986 kg NAD No JVD CTA Trace LE edema CBC, BMP 01/28/18 07:10 01/28/18 07:10 Current Medications Amiodarone HCl (Cordarone -) 200 mg PO DAILY [facility] Last Admin: 01/28/18 09:51 Dose: 200 mg Apixaban (Eliquis -) 5 mg PO BID [facility] Last Admin: 01/28/18 09:50 Dose: 5 mg Aspirin (Asa -) 81 mg PO DAILY [facility] Last Admin: 01/28/18 09:50 Dose: 81 mg Atorvastatin Calcium (Lipitor -) 80 mg PO HS [facility] Last Admin: 01/27/18 22:11 Dose: Not Given Furosemide (Lasix Injection -) 80 mg IVPUSH BID@0600,1400 [facility] Last Admin: 01/28/18 13:02 Dose: 80 mg Hydralazine HCl (Apresoline -) 25 mg PO BID [facility] Last Admin: 01/28/18 09:50 Dose: 25 mg Isosorbide Dinitrate (Isordil -) 20 mg PO BIDISORDIL [facility] Last Admin: 01/28/18 09:50 Dose: 20 mg Metoprolol Tartrate (Lopressor -) 100 mg PO BID [facility] Last Admin: 01/28/18 09:50 Dose: 100 mg Spironolactone (Aldactone -) 25 mg PO DAILY [facility] Last Admin: 01/28/18 09:51 Dose: 25 mg 62 year old gentleman with PMhx of Hypertension, Prostate Ca s/p prostatectomy, Brain AVM s/p repair, CHF, Afib? CKD who presented with SOB and admitted for acute on chronic HF with GERALDINE with Cr of 2.4. #GERALDINE on possible CKD likely due to cardiorenal syndrome vs. KARINA/ATN (less likely given that contrast exposure was several weeks ago) #CHF Exacerbation #Hypertension Renal function improving with IV diuresis would continue to hold ARB until off IV Lasix Weights and clinical status improved Cardiology follow up BP is at goal Bari Ram DO
--- NOTE | 2018-01-28 16:14 | PN ---
Physical Exam: SUBJECTIVE: Patient seen and examined. Sating fine off oxygen. Shortness of breath improved. Pt notes increased mucus but no cough, no wheeze, no hx of allergies. OBJECTIVE: Vital Signs Period Temp Pulse Resp BP Sys/Alexandra Pulse Ox Last 24 Hr 97 F-98.8 F 50-75 16-20 120-138/56-90 93-96 Vital Signs Temp 97.5 F L 01/28/18 17:00 Pulse 50 L 01/28/18 17:00 Resp 20 01/28/18 17:00 BP 123/78 01/28/18 17:00 Pulse Ox 96 01/28/18 10:39 Intake & Output 01/27/18 01/28/18 01/28/18 23:59 11:59 23:59 Intake Total 430 150 600 Output Total 1350 375 Balance -920 -225 600 Weight 114.986 kg Intake: IV 10 30 Saline lock 10 30 Oral 420 120 600 Output: Urine 1350 375 Void 1350 375 Other: Voiding Method Urinal Toilet Urinal # Unmeasured Voids Void 450 Bowel Movement Yes Weight Measurement Method Standing Scale Intake & Output 01/25/18 01/26/18 01/27/18 01/28/18 23:59 23:59 23:59 23:59 Intake Total 460 750 Output Total 1150 1350 375 Balance -1150 -890 375 Weight 115.723 kg 115.269 kg 114.986 kg GENERAL: The patient is awake, alert, and fully oriented, in no acute distress. ENT: moist mucous membranes. LUNGS: Breath sounds equal, clear to auscultation bilaterally, no wheezes, no crackles HEART: Regular rate and rhythm, S1, S2 ABDOMEN: Soft, nontender, nondistended, normoactive bowel sounds, EXTREMITIES: 2+ pulses, warm, well-perfused, no edema. NEUROLOGICAL: Cranial nerves II through XII grossly intact. Normal speech, gait not observed. PSYCH: Normal mood, normal affect. SKIN: Warm, dry, normal turgor, no rashes or lesions noted Laboratory Results - last 24 hr 01/28/18 01/28/18 07:10 07:10 WBC 6.1 RBC 5.67 H Hgb 13.9 Hct 42.0 MCV 74.0 L MCH 24.5 L MCHC 33.1 RDW 15.6 Plt Count 189 MPV 10.2 Neutrophils % 64.2 Lymphocytes % 14.9 D Monocytes % 11.5 H Eosinophils % 8.1 H Basophils % 1.3 Sodium 142 Potassium 3.4 L Chloride 106 Carbon Dioxide 29 Anion Gap 7 L BUN 25 H Creatinine 2.0 H Creat Clearance w eGFR 34.03 Random Glucose 81 Calcium 8.5 Phosphorus 3.8 Magnesium 2.0 Total Bilirubin 0.9 D AST 18 ALT 27 Alkaline Phosphatase 97 Total Protein 7.3 Albumin 3.4 Active Medications Generic Name Dose Route Start Last Admin Trade Name Freq PRN Reason Stop Dose Admin Amiodarone HCl 200 mg 01/26/18 10:00 01/28/18 09:51 Cordarone - PO 200 mg DAILY [facility] Administration Apixaban 5 mg 01/26/18 10:00 01/28/18 09:50 Eliquis - PO 5 mg BID [facility] Administration Aspirin 81 mg 01/27/18 10:00 01/28/18 09:50 Asa - PO 81 mg DAILY [facility] Administration Atorvastatin Calcium 80 mg 01/27/18 22:00 01/27/18 22:11 Lipitor - PO Not Given HS [facility] Furosemide 80 mg 01/29/18 06:00 Lasix - PO BID@0600,1400 [facility] Hydralazine HCl 25 mg 01/26/18 10:00 01/28/18 09:50 Apresoline - PO 25 mg BID [facility] Administration Isosorbide Dinitrate 20 mg 01/26/18 10:00 01/28/18 09:50 Isordil - PO 20 mg BIDISORDIL [facility] Administration Metoprolol Tartrate 100 mg 01/26/18 10:00 01/28/18 09:50 Lopressor - PO 100 mg BID [facility] Administration Spironolactone 25 mg 01/26/18 10:00 01/28/18 09:51 Aldactone - PO 25 mg DAILY [facility] Administration ASSESSMENT/PLAN: Pt is 62 yo M with a signif PMHx of HTN, prostate cancer s/p prostatectomy (2007 ), and brain AVM s/p repair (2000), CHF, Afib, presented with SOB and admitted for CHF exacerbation with GERALDINE Acute on chronic systolic heart failure IV lasix 80 bid continue Likely transition to PO lasix 80mg bid daily weight Intake and output monitoring. lopressor [address] gamez Cont aspirin 81 daily. Continue lipitor. patient should be evaluated for ICD losartan on hold for geraldine continue isosorbide dinitrate 20 bid Pre and post respiratory assessment EKG: LBBB, left atrial enlargement, NSR ECHO: 12/2017: 25-30% EJF, LV mildly dilated, LV systolic function moderate-to severely reduced, global hypokinesis, mild-moderate MR, trace TR. ECHO: 01/27/18:EF 30-35%, LV mod. dilated, LV systolic fn mod to severely reduced , Mod to severe hypokinesis of LV, RV function mod reduced, LA vol index 44ml/ m2 indicating mod LA dilation, PA ystolic pressure at least 43, dilated IVC with <50% collapse, mild aortic sclerotic, mild aortic regurg, mild pulm valvular regurg, No percard or pleural effusion Afib: now sinus rhythm on rate and rhythm. continue eliquis continue amiadarone continue lopressor get tsh, t4 patinet recently started on amiadarone. GERALDINE Dr Ram following D/W Dr Ram- pt can cont iv diuresis at 80mg bid to be switched to PO Continue to monitor off losartan monitor creatinine avoid nephrotoxic drugs. renal usg - non obstructive L calculus, L pleural effusion HTN continue Lopressor hold losartan contninue hdralazine fluid: avoid electrolyte: repeat in am nutrition: low salt diet dvt pro: on eliquis gi pro: not required dispo: admit tele. Visit type - Emergency Visit Emergency Visit: Yes ED Registration Date: 01/26/18 Care time: The patient presented to the Emergency Department on the above date and was hospitalized for further evaluation of their emergent condition. - New Patient This patient is new to me today: No - Critical Care Critical Care patient: No - Discharge Referral Referred to [facility] Med P.C.: No
--- NOTE | 2018-01-28 19:49 | PN ---
Teaching Attending Note Name of Resident: Alivia Gallegos ATTENDING PHYSICIAN STATEMENT I saw and evaluated the patient. I reviewed the resident's note and discussed the case with the resident. I agree with the resident's findings and plan as documented with exceptions below SUBJECTIVE: patient seen and examined, breathing continues to improve, no new complaints. OBJECTIVE: Vital Signs Period Temp Pulse Resp BP Sys/Alexandra Pulse Ox Last 24 Hr 97 F-98.8 F 50-75 16-20 120-138/56-90 93-96 Intake & Output 01/25/18 01/26/18 01/27/18 01/28/18 23:59 23:59 23:59 23:59 Intake Total 460 750 Output Total 1150 1350 375 Balance -1150 -890 375 Weight 255 lb 2 oz 254 lb 2 oz 253 lb 8 oz General: sitting in bed in no acute distress Chest: decreased breath sounds at bases, no rales, good air entry bilaterally Extremities: 1+ pitting pedal edema Abdomen: Soft, NT Home Medication List Medication Instructions Recorded Confirmed Type Amiodarone HCl [Cordarone -] 200 mg PO DAILY 01/26/18 01/27/18 History Apixaban [Eliquis] 5 mg PO BID 01/26/18 01/26/18 History Furosemide [Lasix -] 80 mg PO BID 01/26/18 01/26/18 History Hydralazine HCl 25 mg PO BID 01/26/18 01/27/18 History Isosorbide Dinitrate [Isordil -] 20 mg PO BID 01/26/18 01/26/18 History Metoprolol Tartrate [Lopressor] 100 mg PO BID 01/26/18 01/26/18 History Spironolactone [Aldactone] 25 mg PO DAILY 01/26/18 01/26/18 History Valsartan [Diovan] 80 mg PO Q12H 01/26/18 01/26/18 History Amlodipine Besylate [Norvasc -] 5 mg PO DAILY 01/27/18 01/27/18 History Furosemide [Lasix] 20 mg PO BID 01/27/18 01/27/18 History Active Medications Generic Name Dose Route Start Last Admin Trade Name Freq PRN Reason Stop Dose Admin Amiodarone HCl 200 mg 01/26/18 10:00 01/28/18 09:51 Cordarone - PO 200 mg DAILY [facility] Administration Apixaban 5 mg 01/26/18 10:00 01/28/18 09:50 Eliquis - PO 5 mg BID [facility] Administration Aspirin 81 mg 01/27/18 10:00 01/28/18 09:50 Asa - PO 81 mg DAILY [facility] Administration Atorvastatin Calcium 80 mg 01/27/18 22:00 01/27/18 22:11 Lipitor - PO Not Given HS [facility] Furosemide 80 mg 01/29/18 06:00 Lasix Injection - IVPUSH BID@0600,1400 [facility] Hydralazine HCl 25 mg 01/26/18 10:00 01/28/18 09:50 Apresoline - PO 25 mg BID [facility] Administration Isosorbide Dinitrate 20 mg 01/26/18 10:00 01/28/18 17:18 Isordil - PO 20 mg BIDISORDIL [facility] Administration Metoprolol Tartrate 100 mg 01/26/18 10:00 01/28/18 09:50 Lopressor - PO 100 mg BID [facility] Administration Spironolactone 25 mg 01/26/18 10:00 01/28/18 09:51 Aldactone - PO 25 mg DAILY [facility] Administration Laboratory Results - last 24 hr 01/28/18 01/28/18 07:10 07:10 WBC 6.1 RBC 5.67 H Hgb 13.9 Hct 42.0 MCV 74.0 L MCH 24.5 L MCHC 33.1 RDW 15.6 Plt Count 189 MPV 10.2 Neutrophils % 64.2 Lymphocytes % 14.9 D Monocytes % 11.5 H Eosinophils % 8.1 H Basophils % 1.3 Sodium 142 Potassium 3.4 L Chloride 106 Carbon Dioxide 29 Anion Gap 7 L BUN 25 H Creatinine 2.0 H Creat Clearance w eGFR 34.03 Random Glucose 81 Calcium 8.5 Phosphorus 3.8 Magnesium 2.0 Total Bilirubin 0.9 D AST 18 ALT 27 Alkaline Phosphatase 97 Total Protein 7.3 Albumin 3.4 2D echo results reviewed ASSESSMENT AND PLAN: 62 yom with cardiomyopathy, Recent cardiac cath with no obstructive CAD, here with acute on chronic CHF -Acute on chronic systolic HF exacerbation -GERALDINE, suspect cardiorenal syndrome -Afib Plan: DIuresing well, improved. off oxygen. Lasix 80 mg IV BID, transition to PO in 24 hours if improving. Creatinine stable. Suspect may need to stay at higher baseline to ensure adequate diuresis and volume status. Renal input noted. Hold ARB continue lopressor, eliquis, ISDN dispo in 24-48 hours if continues to improve Plan discussed with patient in detail, all questions answered.
[2018-01-28] MEDS: ATORVASTATIN CA 80 MG TABLET (FP) PO SCH (21:36)
[2018-01-29] MEDS: FUROSEMIDE 40 MG/4 ML INJECTABLE VIAL IVPUSH SCH ×2 (05:48→15:27)
[2018-01-29] MEDS ORDERED: FUROSEMIDE 40 MG TABLET (FP) PO SCH (06:00)
--- NOTE | 2018-01-29 08:07 | PN ---
Teaching Attending Note Name of Resident: Alivia Gallegos ATTENDING PHYSICIAN STATEMENT I saw and evaluated the patient. I reviewed the resident's note and discussed the case with the resident. I agree with the resident's findings and plan as documented with exceptions below. SUBJECTIVE: Patient seen and examined. no new dyspnea. Leg swelling continues to improve, no new complaints. OBJECTIVE: Vital Signs Period Temp Pulse Resp BP Sys/Alexandra Pulse Ox Last 24 Hr 97 F-98 F 50-75 18-20 120-129/56-91 95-96 Intake & Output 01/26/18 01/27/18 01/28/18 01/29/18 23:59 23:59 23:59 23:59 Intake Total 460 1050 150 Output Total 1150 1350 1075 550 Balance -1150 -890 -25 -400 Weight 255 lb 2 oz 254 lb 2 oz 253 lb 8 oz 252 lb 2 oz General: sitting in chair in no acute distress Chest: CTAB, no rales or wheezing Extremities: improved pedal pitting edema Home Medication List Medication Instructions Recorded Confirmed Type Amiodarone HCl [Cordarone -] 200 mg PO DAILY 01/26/18 01/27/18 History Apixaban [Eliquis] 5 mg PO BID 01/26/18 01/26/18 History Furosemide [Lasix -] 80 mg PO BID 01/26/18 01/26/18 History Hydralazine HCl 25 mg PO BID 01/26/18 01/27/18 History Isosorbide Dinitrate [Isordil -] 20 mg PO BID 01/26/18 01/26/18 History Metoprolol Tartrate [Lopressor] 100 mg PO BID 01/26/18 01/26/18 History Spironolactone [Aldactone] 25 mg PO DAILY 01/26/18 01/26/18 History Valsartan [Diovan] 80 mg PO Q12H 01/26/18 01/26/18 History Amlodipine Besylate [Norvasc -] 5 mg PO DAILY 01/27/18 01/27/18 History Furosemide [Lasix] 20 mg PO BID 01/27/18 01/27/18 History Active Medications Generic Name Dose Route Start Last Admin Trade Name Freq PRN Reason Stop Dose Admin Amiodarone HCl 200 mg 01/26/18 10:00 01/28/18 09:51 Cordarone - PO 200 mg DAILY [facility] Administration Apixaban 5 mg 01/26/18 10:00 01/28/18 21:36 Eliquis - PO 5 mg BID [facility] Administration Aspirin 81 mg 01/27/18 10:00 01/28/18 09:50 Asa - PO 81 mg DAILY [facility] Administration Atorvastatin Calcium 80 mg 01/27/18 22:00 01/28/18 21:36 Lipitor - PO 80 mg HS [facility] Administration Furosemide 80 mg 01/29/18 06:00 01/29/18 05:48 Lasix Injection - IVPUSH 80 mg BID@0600,1400 [facility] Administration Hydralazine HCl 25 mg 01/26/18 10:00 01/28/18 21:36 Apresoline - PO 25 mg BID [facility] Administration Isosorbide Dinitrate 20 mg 01/26/18 10:00 01/28/18 17:18 Isordil - PO 20 mg BIDISORDIL [facility] Administration Metoprolol Tartrate 100 mg 01/26/18 10:00 01/28/18 21:37 Lopressor - PO 100 mg BID [facility] Administration Spironolactone 25 mg 01/26/18 10:00 01/28/18 09:51 Aldactone - PO 25 mg DAILY [facility] Administration 2D echo results reviewed ASSESSMENT AND PLAN: 62 yom with cardiomyopathy, Recent cardiac cath with no obstructive CAD, here with acute on chronic CHF -Acute on chronic systolic HF exacerbation -GERALDINE, suspect cardiorenal syndrome -Afib Plan: doing well, change lasix to 80 mg PO BiD on d/c Continue ASA/statin/Aldactone. Hold ARB for now. DIscussed with cardiologybekah for d.c. Outpatient cardiology appointment on 01/31, follow up BMP and further resumption of ARB accordingly. D/c home today. Plan discussed with patient in detail, all questions answered.
[2018-01-29] MEDS: AMIODARONE HCL 200 MG TABLET (FP) PO SCH ×2 (08:47→13:46)
[2018-01-29] MEDS: METOPROLOL TARTRATE 50 MG TABLET (FP) PO SCH ×2 (08:47→13:46)
[2018-01-29] MEDS: SPIRONOLACTONE 25 MG TABLET (FP) PO SCH ×2 (08:47→13:46)
[2018-01-29] MEDS: ASPIRIN 81 MG CHEWABLE TABLETS PO SCH ×2 (08:47→13:46)
[2018-01-29] MEDS: ISOSORBIDE DINITRATE 20 MG TABLET (FP) PO SCH ×2 (08:48→13:46)
[2018-01-29] MEDS: hydrALAZINE HCL 25 MG TABLET (FP) PO SCH ×2 (08:48→13:46)
[2018-01-29] MEDS: APIXABAN 5 MG TABLET PO SCH ×2 (08:48→13:46)
[2018-01-29 08:59] LABS: BASO % 1.1 % (0-2.0); HEMATOCRIT 40.4 % (35.4-49); HEMOGLOBIN 13.4 GM/dL (11.7-16.9); LYMPH % 17.1 % (8-40); MCH 24.5 pg (25.7-33.7); MCHC 33.1 g/dl (32.0-35.9); MEAN CELL VOLUME 73.9 fl (80-96); MEAN PLT VOLUME 10.3 fl (7.5-11.1); NEUT % 62.8 % (42.8-82.8); PLATELET COUNT 185 K/MM3 (134-434); RBC 5.47 M/mm3 (4.00-5.60); RDW 15.5 % (11.9-15.9); WHITE BLOOD COUNT 5.7 K/mm3 (4.0-10.0)
[2018-01-29 10:21] LABS: CHLORIDE 107 mmol/L (98-107); POTASSIUM 3.3 mmol/L (3.5-5.1); SODIUM 144 mmol/L (136-145)
--- NOTE | 2018-01-29 10:43 | PN ---
Progress Note, Physician History of Present Illness: PULMONARY ALERT,OOB-CHAIR,FEELING BETTER,-RESP DISTRESS - Current Medication List Current Medications: Active Medications Amiodarone HCl (Cordarone -) 200 mg PO DAILY [facility] Last Admin: 01/29/18 08:47 Dose: 200 mg Apixaban (Eliquis -) 5 mg PO BID [facility] Last Admin: 01/29/18 08:48 Dose: 5 mg Aspirin (Asa -) 81 mg PO DAILY [facility] Last Admin: 01/29/18 08:47 Dose: 81 mg Atorvastatin Calcium (Lipitor -) 80 mg PO HS [facility] Last Admin: 01/28/18 21:36 Dose: 80 mg Furosemide (Lasix Injection -) 80 mg IVPUSH BID@0600,1400 [facility] Last Admin: 01/29/18 05:48 Dose: 80 mg Hydralazine HCl (Apresoline -) 25 mg PO BID [facility] Last Admin: 01/29/18 08:48 Dose: 25 mg Isosorbide Dinitrate (Isordil -) 20 mg PO BIDISORDIL [facility] Last Admin: 01/29/18 08:48 Dose: 20 mg Metoprolol Tartrate (Lopressor -) 100 mg PO BID [facility] Last Admin: 01/29/18 08:47 Dose: 100 mg Spironolactone (Aldactone -) 25 mg PO DAILY [facility] Last Admin: 01/29/18 08:47 Dose: 25 mg - Objective Vital Signs: Vital Signs Temperature 98 F 01/29/18 06:00 Pulse Rate 58 L 01/29/18 06:00 Respiratory Rate 19 01/29/18 06:00 Blood Pressure 127/85 01/29/18 06:00 O2 Sat by Pulse Oximetry (%) 93 L 01/29/18 09:11 Constitutional: Yes: Well Nourished, Calm Eyes: Yes: WNL HENT: Yes: WNL Neck: Yes: WNL Cardiovascular: Yes: Pulse Irregular, S1, S2 Respiratory: Yes: Rales (FEW BIBASILAR RALES) Gastrointestinal: Yes: Normal Bowel Sounds, Soft Extremities: Yes: WNL Edema: No Labs: CBC, BMP 01/29/18 06:30 INR, PTT INR 1.72 (0.82-1.09) H D 01/26/18 02:20 Problem List - Problems (1) Acute renal insufficiency Code(s): N28.9 - DISORDER OF KIDNEY AND URETER, UNSPECIFIED (2) Atrial fibrillation Code(s): I48.91 - UNSPECIFIED ATRIAL FIBRILLATION (3) CHF (congestive heart failure) Code(s): I50.9 - HEART FAILURE, UNSPECIFIED Qualifiers: (4) Dyspnea Code(s): R06.00 - DYSPNEA, UNSPECIFIED (5) Acute respiratory failure with hypoxia Code(s): J96.01 - ACUTE RESPIRATORY FAILURE WITH HYPOXIA (6) Cardiomyopathy Code(s): I42.9 - CARDIOMYOPATHY, UNSPECIFIED (7) Essential (primary) hypertension Code(s): I10 - ESSENTIAL (PRIMARY) HYPERTENSION Assessment/Plan IMP ACUTE HYPOXEMIC RESPIRATORY FAILURE IMPROVED ACUTE ON CHRONIC CHF CARDIOMYOPATHY WITH SEVERE LV DYSFUNCTION AFIB ACUTE ON LIKELY CHRONIC KIDNEY DISEASE H/O PROSTATE CA S/P PROSTATECTOMY H/O BRAIN AVM PULMONARY HTN HTN LLL PULMONARY NODULE OSAS AHI 49 ON SLEEP SCREEN PLAN IV LASIX PER CARDIOLOGY ALDCATONE SUPPLEMENTAL O2 NEEDED NIPPV NEEDED FOR INCREASED RESPIRATORY DISTRESS DAILY WTS MONITOR LYTES,RENAL FUNCTION RATE CONTROL FORMAL SLEEP STUDIES OUTPATIENT CHEST X-RAY PA AND LATERAL TODAY DR ALVAREZ Problem List - Problems (1) Acute renal insufficiency Code(s): N28.9 - DISORDER OF KIDNEY AND URETER, UNSPECIFIED (2) Atrial fibrillation Code(s): I48.91 - UNSPECIFIED ATRIAL FIBRILLATION (3) CHF (congestive heart failure) Code(s): I50.9 - HEART FAILURE, UNSPECIFIED Qualifiers: (4) Dyspnea Code(s): R06.00 - DYSPNEA, UNSPECIFIED (5) Acute respiratory failure with hypoxia Code(s): J96.01 - ACUTE RESPIRATORY FAILURE WITH HYPOXIA (6) Cardiomyopathy Code(s): I42.9 - CARDIOMYOPATHY, UNSPECIFIED (7) Essential (primary) hypertension Code(s): I10 - ESSENTIAL (PRIMARY) HYPERTENSION
[2018-01-29 11:04] LABS: ANION GAP 11 (8-16); BLOOD UREA NITROGEN 24 mg/dL (7-18); CALCIUM 8.7 mg/dL (8.5-10.1); CO2 26 mmol/L (21-32); CREATININE 1.9 mg/dL (0.7-1.3); GLUCOSE,RANDOM 85 mg/dL (74-106); MAGNESIUM 2.1 mg/dL (1.8-2.4)
[2018-01-29 14:27] VITALS: BP 105/74; PULSE 51; TEMP 97.6
--- NOTE | 2018-01-29 14:28 | DS ---
Physical Exam: SUBJECTIVE: Patient seen and examined. No new complaints. Feels much better, is breathing better. No cough or fevers, no increased mucus production. Feels ready to go home. OBJECTIVE: Vital Signs Period Temp Pulse Resp BP Sys/Alexandra Pulse Ox Last 24 Hr 97 F-98 F 50-58 18-20 123-129/78-91 93-96 Vital Signs Temp 97.6 F 01/29/18 14:00 Pulse 51 L 01/29/18 14:00 Resp 18 01/29/18 14:00 BP 105/74 01/29/18 14:00 Pulse Ox 93 L 01/29/18 09:11 Intake & Output 01/28/18 01/29/18 01/29/18 23:59 11:59 23:59 Intake Total 900 550 Output Total 700 900 Balance 200 -350 Weight 114.362 kg Intake: IV 30 Saline lock 30 Oral 900 520 Output: Urine 700 900 Void 700 900 Other: Voiding Method Urinal Toilet # Unmeasured Voids Void 450 Bowel Movement Yes No Weight Measurement Method Standing Scale Intake & Output 01/26/18 01/27/18 01/28/18 01/29/18 23:59 23:59 23:59 23:59 Intake Total 460 1050 550 Output Total 1150 1350 1075 900 Balance -1150 -890 -25 -350 Weight 115.723 kg 115.269 kg 114.986 kg 114.362 kg PHYSICAL EXAM GENERAL: The patient is awake, alert, and fully oriented, in no acute distress. HEAD: Normal with no signs of trauma. EYES: PERRL, extraocular movements intact ENT: moist mucous membranes. NECK: supple. LUNGS: Breath sounds equal, clear to auscultation bilaterally, no wheezes, no crackles, HEART: Regular rate and rhythm, S1, S2 ABDOMEN: Soft, nontender, nondistended, normoactive bowel sounds, EXTREMITIES: 2+ pulses, warm, well-perfused, no pitting edema. NEUROLOGICAL: Cranial nerves II through XII grossly intact. No facial droop. Normal speech, gait not observed. PSYCH: Normal mood, normal affect. SKIN: Warm, dry, normal turgor, no rashes or lesions noted. LABS Laboratory Results - last 24 hr 01/29/18 01/29/18 06:30 06:30 WBC 5.7 RBC 5.47 Hgb 13.4 Hct 40.4 MCV 73.9 L MCH 24.5 L MCHC 33.1 RDW 15.5 Plt Count 185 MPV 10.3 Neutrophils % 62.8 Lymphocytes % 17.1 Monocytes % 11.0 H Eosinophils % 8.0 H Basophils % 1.1 Sodium 144 Potassium 3.3 L Chloride 107 Carbon Dioxide 26 Anion Gap 11 BUN 24 H Creatinine 1.9 H Random Glucose 85 Calcium 8.7 Magnesium 2.1 EKG: LBBB, left atrial enlargement, NSR ECHO: 12/2017: 25-30% EJF, LV mildly dilated, LV systolic function moderate-to severely reduced, global hypokinesis, mild-moderate MR, trace TR. ECHO: 01/27/18:EF 30-35%, LV mod. dilated, LV systolic fn mod to severely reduced , Mod to severe hypokinesis of LV, RV function mod reduced, LA vol index 44ml/ m2 indicating mod LA dilation, PA ystolic pressure at least 43, dilated IVC with <50% collapse, mild aortic sclerotic, mild aortic regurg, mild pulm valvular regurg, No percard or pleural effusion HOSPITAL COURSE: Date of Admission:01/26/18 Date of Discharge: 01/29/18 Prehospital course: Patient is a 62 year old male with a significant past medical history of HTN, prostate cancer s/p prostatectomy (2007), and brain AVM s/p repair (2000), CHF, Afib, who presented to the ED with complaints of shortness of breath that began just prior to ED arrival. Patient stated that last month he was diagnosed with afib and chf. Roseline was transferred to [facility] last month where CT angiography did not show any blockage, so no stents were placed. In last 3 weeks the patient reports a weight gain of 5 pounds. He started feeling sob yesterday, and noticed increased swelling of legs. Hospital course: He was diagnosed with Acute exacerbation of systolic heart failure and managed with IV lasix 80 bid, lopressor 100 bid, aspirin 81 daily, lipitor, and isosorbide dinitrate 20 bid . His losartan was held due to GERALDINE. His afib was in sinus rhythm and rate, on eliquis, amiodarone, lopressor. Repeat ECHO showed improved EF. Patient could be evaluated for ICD He was seen by a learning officer for the GERALDINE. For hypertension, he continued his hydralazine Patient's shortness of breath resolved prior to discharge Minutes to complete discharge: 47 Discharge Summary Reason For Visit: CHF A FIB A CUTE RENAL INSUFFICIENCY Current Active Problems Acute renal insufficiency (Acute) Atrial fibrillation (Acute) CHF (congestive heart failure) (Acute) Dyspnea (Acute) Condition: Improved - Instructions Diet, Activity, Other Instructions: You were seen here for shortness of breath You were found to have worsening of your heart failure You were also noted to have breathing problems while sleeping You also had damage to your kidneys Your breathing has improved with treatment You will need to be further evaluated by a sleep specialist/ patent attorney for the breathing problems while you sleep You kidney function is improving You need to get a repeat BMP with your chemical processing laborer on Saturday Please minimize your salt intake Please monitor your weight daily If you gain more than 3lbs in 2 days, please contact your chemical processing laborer immediately Please follow up with your primary care provider in one week Medication changes: While you here, your blood pressure medication-valsartan was stopped because of increased creatinine (kidney function) Please return to your chemical processing laborer on Wednesday 01/31 to discuss resumption Also you are being discharged on Lasix 80mg twice daily by mouth We also added a cholesterol medication-Lipitor to be taken daily at night Please continue with your other medications as prescribed If you think your symptoms are worsening, with increasing shortness of breath or chest pain, please return to the emergency room If you notice any jaundice, belly pain, muscle aches or pains on your new cholesterol medication, notify your doctor right away. Resume activities as prior and avoid strenuous exertion till seen by your doctor. Follow up labs: BMP (basic metabolic panel) with your chemical processing laborer on Saturday Referrals: Mason Velazquez MD [Staff Physician] - 1 Week Clyde Arias MD [Staff Physician] - 2 Weeks ([facility], ASA for outpatient sleep study) Peña Wu MD [Primary Care Provider] - 1 Week (Follow up for review of your blood pressure medication (losartan)) Disposition: HOME - Home Medications Comprehensive Discharge Medication List: Ambulatory Orders Amiodarone HCl [Cordarone -] 200 mg PO DAILY 01/26/18 Apixaban [Eliquis] 5 mg PO BID 01/26/18 Hydralazine HCl 25 mg PO BID 01/26/18 Isosorbide Dinitrate [Isordil -] 20 mg PO BID 01/26/18 Metoprolol Tartrate [Lopressor] 100 mg PO BID 01/26/18 Spironolactone [Aldactone -] 25 mg PO DAILY 01/26/18 Aspirin [ASA -] 81 mg PO DAILY #30 tab.chew 01/29/18 Atorvastatin Ca [Lipitor] 80 mg PO HS #30 tablet 01/29/18 Furosemide [Lasix -] 80 mg PO BID #14 tablet 01/29/18 This patient is new to me today: No Emergency Visit: Yes ED Registration Date: 01/26/18 Care time: The patient presented to the Emergency Department on the above date and was hospitalized for further evaluation of their emergent condition. Critical Care patient: No - Discharge Referral Referred to [facility] Med P.C.: No
[2018-01-29] MEDS ORDERED: POTASSIUM CHLORIDE ORAL LIQUID 20 MEQ/15 ML PO ONE (14:47)
[2018-01-29] MEDS ORDERED: PT OWN MED DRAWER 7, Y5N ONE (14:51)
--- NOTE | 2018-01-29 14:58 | PN ---
Progress Note, Physician Chief Complaint: Feels well Ambulating in hallway with no complaints No events on tele in sinus History of Present Illness: This is a 62 year old male with a PMH of HTN, Prostate Ca s/p prostatectomy ( 2007), brain AVM s/p repair (2000), and AFIB. He has systolic CHF with an echocardiogram at [facility] 12/29/17 showing an EF of 15% with moderate MR. A cardiac cath performed 12/26/17 showed non obstructive CORS with minimal luminal irregularities and elevated LVEDP. He presents now with worsening RATLIFF and resting SOB. He denies an increase dietary sodium intake. He has significantly improved after BiPAP and IV Lasix. EKG 01/26/18 NSR with a LBBB CXR 01/26/18 Congestive changes with pleural fluid BNP 8920 Presently comfortable. - Current Medication List Current Medications: Active Medications Amiodarone HCl (Cordarone -) 200 mg PO DAILY [facility] Last Admin: 01/29/18 13:46 Dose: Not Given Apixaban (Eliquis -) 5 mg PO BID [facility] Last Admin: 01/29/18 13:46 Dose: Not Given Aspirin (Asa -) 81 mg PO DAILY [facility] Last Admin: 01/29/18 13:46 Dose: Not Given Atorvastatin Calcium (Lipitor -) 80 mg PO HS [facility] Last Admin: 01/28/18 21:36 Dose: 80 mg Furosemide (Lasix -) 80 mg PO BID@0600,1400 [facility] Hydralazine HCl (Apresoline -) 25 mg PO BID [facility] Last Admin: 01/29/18 13:46 Dose: Not Given Isosorbide Dinitrate (Isordil -) 20 mg PO BIDISORDIL [facility] Last Admin: 01/29/18 13:46 Dose: Not Given Metoprolol Tartrate (Lopressor -) 100 mg PO BID [facility] Last Admin: 01/29/18 13:46 Dose: Not Given Spironolactone (Aldactone -) 25 mg PO DAILY [facility] Last Admin: 01/29/18 13:46 Dose: Not Given - Objective Vital Signs: Vital Signs Temperature 97.6 F 01/29/18 14:00 Pulse Rate 51 L 01/29/18 14:00 Respiratory Rate 18 01/29/18 14:00 Blood Pressure 105/74 01/29/18 14:00 O2 Sat by Pulse Oximetry (%) 93 L 01/29/18 09:11 Constitutional: Yes: No Distress Neck: Yes: Supple Cardiovascular: Yes: Regular Rate and Rhythm, S1, S2. No: Murmur Respiratory: Yes: CTA Bilaterally Edema: LLE: Trace, RLE: Trace Labs: CBC, BMP 01/29/18 06:30 01/29/18 06:30 INR, PTT INR 1.72 (0.82-1.09) H D 01/26/18 02:20 Problem List - Problems (1) Atrial fibrillation Code(s): I48.91 - UNSPECIFIED ATRIAL FIBRILLATION (2) CHF (congestive heart failure) Code(s): I50.9 - HEART FAILURE, UNSPECIFIED Qualifiers: Assessment/Plan This is a 62 year old male with a PMH of HTN, Prostate Ca s/p prostatectomy ( 2007), brain AVM s/p repair (2000), and AFIB. He has systolic CHF with an echocardiogram at [facility] 12/29/17 showing an EF of 15% with moderate MR. A cardiac cath performed 12/26/17 showed non obstructive CORS with minimal luminal irregularities and elevated LVEDP admitted with acute on chronic systolic chf exacerbation. 1) Acute on chronic systolic chf Volume status much improved with Cr trending down. Change furosemide to 80mg PO BID Would give dose of Potassium supplement today On metoprolol, spironolactone, and hydralazine/isosorbide Arb on hold and to re-eval as outpatient whether can restart 2) Afib On metoprolol and apixaban
[2018-01-30] MEDS ORDERED: FUROSEMIDE 40 MG TABLET (FP) PO SCH (06:00)
== END 2018-01-29 15:45 | disposition home or self-care (01) | DRG 291 ==
LOC: JER 01:43 → JERBED 06:53 → J4W 11:17
PROVIDERS: ADMIT Internal Medicine; ATTEND Hospitalist
DX: I13.0 Hypertensive heart and chronic kidney disease with heart failure and stage 1 through stage 4 chronic kidney disease, or unspecified chronic kidney disease (principal); J96.01 Acute respiratory failure with hypoxia; I50.23 Acute on chronic systolic (congestive) heart failure; N17.9 Acute kidney failure, unspecified; I42.9 Cardiomyopathy, unspecified; I48.91 Unspecified atrial fibrillation; N18.9 Chronic kidney disease, unspecified; I27.20 Pulmonary hypertension, unspecified; R91.1 Solitary pulmonary nodule
CPT/HCPCS: 36415; 36600; 71045-TC-FY; 71046-TC-FY; 76775-TC; 80048; 80053; 81003; 81015; 82375; 82436; 82465; 82550; 82570; 82803; 83036; 83050; 83735; 83880; 84100; 84133; 84156; 84300; 84439; 84443; 84484; 84540; 85025; 85610; 85730; 93005; 93010; 93306-TC; 94010; 94660; 94761; 99285-25

== ENCOUNTER 2018-02-17 09:02 | Inpatient (IN) | payer OTHER ==
[2018-02-17 09:14] VITALS: BMI 32.7
--- NOTE | 2018-02-17 09:18 | PDOC ---
History of Present Illness - General Chief Complaint: Shortness of Breath Stated Complaint: SOB Time Seen by Provider: 02/17/18 09:16 - History of Present Illness Initial Comments: 02/17/18 09:16 62 yo M with a h/o HTN, prostate ca. s/p prostatectomy (2007), brain AVM (2000) , CHF, Afib who p/w SOB. Patient reports acute onset of SOB yesterday evening. Patient states that he experienced SOB yesterday evening following straining attempt on defecation. Asx. w/chest tightness. Denies BPR, or abdominal pain. SOB improved following intake of 80 mg Lasix yesterday evening. Patient took daily Lasix 80 mg this AM. Reports that chest tightness is now improved. Sleeps with 2 pillows at night. at bedside to assist in report, who states patient with mild cough yesterday evening. No home O2 requirements or BIPAP. Sleep study scheduled for one week. Echo (01/28)30-35 % EF, Moderate to Severe Global Hypokinesis. Cardiac Cath (12/26/17) no abnml. Denies F/C, N/V, hemoptysis, CP, palpitations, SOB, abdominal pain, diarrhea, constipation, urinary complaints, weakness, lightheadedness, sensory changes, leg swelling, leg pain. PMHx: as noted above. 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 García. Denies h/o ACS/ND, stent placement, CABG, abnormal stress testing ( does not recall previous stress testing). Denies h/o PE/DVT. ROS: as noted above SHx: Denies tobacco, Etoh, or IVDA. Past History - Past Medical History Allergies/Adverse Reactions: Allergies Allergy/AdvReac Type Severity Reaction Status Date / Time No Known Allergies Allergy Verified 02/17/18 09:10 Home Medications: Ambulatory Orders Amiodarone HCl [Cordarone -] 200 mg PO DAILY 01/26/18 Apixaban [Eliquis] 5 mg PO BID 01/26/18 Hydralazine HCl 25 mg PO BID 01/26/18 Isosorbide Dinitrate [Isordil -] 20 mg PO BID 01/26/18 Metoprolol Tartrate [Lopressor] 100 mg PO BID 01/26/18 Spironolactone [Aldactone -] 25 mg PO DAILY 01/26/18 Furosemide [Lasix -] 80 mg PO BID #14 tablet 01/29/18 Anemia: No Asthma: No Cancer: Yes (PROSTATE 2006) Cardiac Disorders: Yes (A-fib) CVA: No COPD: No CHF: No Dementia: No Diabetes: No GI Disorders: No Disorders: No HTN: Yes Hypercholesterolemia: No Liver Disease: No Seizures: No Thyroid Disease: No - Surgical History Abdominal Surgery: Yes (HERNIA REPAIR 2009) Appendectomy: No Cardiac Surgery: No Cholecystectomy: No Lung Surgery: No Neurologic Surgery: No Orthopedic Surgery: No - Immunization History Immunization Up to Date: Yes - Suicide/Smoking/Psychosocial Hx Smoking History: Former smoker Have you smoked in the past 12 months: No If you are a former smoker, when did you quit?: 20 yrs ago Information on smoking cessation initiated: No Hx Alcohol Use: Yes (weekends) Drug/Substance Use Hx: No Substance Use Type: None Hx Substance Use Treatment: No Review of Systems - Review of Systems Comments:: 02/17/18 09:47 GENERAL/CONSTITUTIONAL: No fever or chills. No weakness. HEAD, EYES, EARS, NOSE AND THROAT: No change in vision. No ear pain or discharge. No sore throat. CARDIOVASCULAR: + chest tightness, and SOB. No chest pain or shortness of breath RESPIRATORY: No cough, wheezing, or hemoptysis. GASTROINTESTINAL: No nausea, vomiting, diarrhea or constipation. GENITOURINARY: No dysuria, frequency, or change in urination. MUSCULOSKELETAL: No joint or muscle swelling or pain. No neck or back pain. SKIN: No rash NEUROLOGIC: No headache, vertigo, loss of consciousness, or change in strength/ sensation. ENDOCRINE: No increased thirst. No abnormal weight change HEMATOLOGIC/LYMPHATIC: No anemia, easy bleeding, or history of blood clots. ALLERGIC/IMMUNOLOGIC: No hives or skin allergy. *Physical Exam - Vital Signs Last Vital Signs Temp Pulse Resp BP Pulse Ox 97.5 F L 61 20 75/41 94 L 02/17/18 09:10 02/17/18 09:10 02/17/18 09:10 02/17/18 09:10 02/17/18 09:10 - Physical Exam Comments: 02/17/18 09:48 GENERAL: Awake, alert, and fully oriented, in no acute distress HEAD: No signs of trauma, normocephalic, atraumatic EYES: PERRLA, EOMI, sclera anicteric, conjunctiva clear ENT: Hearing grossly normal, nares patent, oropharynx clear without exudates. Moist mucosa NECK: Normal ROM, supple, no lymphadenopathy, JVD, or masses LUNGS: Diminished lungs sound at bases L>R. No distress, speaks full sentences, clear to auscultation bilaterally HEART: Regular rate and rhythm, normal S1 and S2, no murmurs, rubs or gallops, peripheral pulses normal and equal bilaterally. ABDOMEN: Soft, nontender, normoactive bowel sounds. No guarding, no rebound. No masses EXTREMITIES : Normal inspection, Normal range of motion, no edema. No clubbing or cyanosis. SKIN: Warm, Dry, normal turgor, no rashes or lesions noted ED Treatment Course - LABORATORY CBC & Chemistry Diagram: 02/17/18 09:47 02/17/18 11:45 Medical Decision Making - Medical Decision Making 02/17/18 09:49 62 yo M with a h/o HTN, prostate ca. s/p prostatectomy (2007), brain AVM (2000) , CHF, Afib who p/w SOB. BP 75/41, 94 % O2 RA, AF. Patient took 320 mg Lasix within past 24 hours. No evidence of fluid overload on physical exam. Hypotension likely 2/2 hypovolemia 2/2 diuretic use. Will provide gentle IVF resuscitation. Currently asymptomatic. Possible causes of SOB evening include CHF exacerbation, PNA. ACS/ND r/o. mod risk PE based on Weils Criteria. Ed Course: CBC,CMP, Pt/INR, BNP, Cardiac Pr, EKG, CXR 02/17/18 13:05 CXR: New congestive changes, with possible superimposed infiltrates. CBC: Unremarkable BNP: 9505 D-Dimer: 952 INR 1.81 Patient with cont'd chest tightness, SOB. 02/17/18 13:07 Plan to admit to medicine/[facility] for CHF exacerbation. Consulted Dr. Pleitez Cardiology. *DC/Admit/Observation/Transfer Diagnosis at time of Disposition: CHF (congestive heart failure) Qualifiers: Heart failure type: unspecified Heart failure chronicity: acute on chronic Qualified Code(s): I50.9 - Heart failure, unspecified - Discharge Dispostion Decision to Admit order: Yes - Referrals - Patient Instructions - Post Discharge Activity
--- NOTE | 2018-02-17 09:25 | PDOC ---
Attending Attestation - Medical Decision Making 02/17/18 EXAM: CHEST X-RAY Impression : New pulmonary findings. Weak inspiratory effort. Widened mediastinum. Degenerative changes. Reported by:Jose Palomares Documentation prepared by Lamine Paredes, acting as medical doctor nuclear medicine for Jose Luis Alston MD. EXAM:DUPLEX VASCUL US-1 LEG Impression: No evidence of right lower extremity deep vein thrombosis Reported By: Robert Escalante DO <Lamine Paredes - Last Filed: 02/17/18 12:50> - Resident Resident Name: Jignesh Russson - ED Attending Attestation I have performed the following: I have examined & evaluated the patient, The case was reviewed & discussed with the resident, I agree w/resident's findings & plan, Exceptions are as noted - HPI HPI: 02/17/18 09:23 62yo M hx CHF, HTN, prostate cancer s/p prostatectomy (2007), and brain AVM s/p repair (2000), Afib presents to the ED with RATLIFF and SOB since last night. Pt states this feels like his heart failure "acting up." He also reports chest tightness last night and this morning that has improved. Pt reports compliance with his lasix, actually took 2 lasix 80mg this AM instead of one. His normal dose is 80mg BID. Denies fevers, cough, n/v, abd pain, dizziness. focal weakness or numbness. Pt is followed by Dr. Quintana (cards at [facility]) and Dr. Wu. - Physicial Exam PE: 02/17/18 09:29 GENERAL: Awake, alert, and fully oriented, in no acute distress HEAD: No signs of trauma EYES: PERRLA, EOMI, sclera anicteric, conjunctiva clear ENT: Auricles normal inspection, hearing grossly normal, nares patent, oropharynx clear without exudates. Moist mucosa NECK: Normal ROM, supple, no lymphadenopathy, JVD, or masses LUNGS: Diminished BS at the bases, more diminished on the L. No wheezes, and no crackles HEART: Regular rate and rhythm, normal S1 and S2, no murmurs, rubs or gallops ABDOMEN: Soft, nontender, normoactive bowel sounds. No guarding, no rebound. No masses EXTREMITIES: Normal range of motion. No clubbing or cyanosis. No cords, erythema, or tenderness. 1+ LE pitting edema, R>L swelling NEUROLOGICAL: Normal speech, cranial nerves intact, negative pronator drift, 5/ 5 strength in all 4 extremities, normal sensation to light touch in all 4 extremities, normal cerebellar exam, normal gait, normal reflexes and tone SKIN: Warm, Dry, normal turgor, no rashes or lesions noted. BP sitting and standing 140s/110s - Medical Decision Making 02/17/18 09:25 62yo M with MMP including CHF on lasix presents to the ED with progressive SOB, RATLIFF since last night. Pt took a double dose of his lasix 80mg this AM for his SOB. Vitals in triage likely spurious as BP checked here has been >140/110 on repeat checks, while sitting and standing. On exam, pt has diminished BS at the bases, LE asymmetric edema. WIll work him up for CHF vs PE/DVT vs ACS and likely admit. 02/17/18 14:05 Work up with elevated BNP, CXR with congestion - all consistent with CHF exac. Pt given 40mg lasix IV. Dimer elevated to 900s, but pt has much more likely reason to be SOB. Furthermore, US negative for DVT. Will defer to admission team on whether to pursue V/Q scan if the pt does not improve with CHF treatment. Case discussed in detail with admitting physician Dr. Sky including history , physical exam and ancillary studies. Admitting physician has assumed care for the patient, will follow all pending diagnostics and will complete the evaluation and treatment. <Jose Luis Alston - Last Filed: 02/17/18 14:36> Heart Score/ECG Review #1 02/17/18 10:10 Twelve-lead EKG was performed and reviewed by me. Sinus bradycardia, rate 59. Normal axis. +LBBB <Jose Luis Alston - Last Filed: 02/17/18 14:36>
[2018-02-17 10:03] LABS: BASO % 0.5 % (0-2.0); EOS % 0.3 % (0-4.5); HEMATOCRIT 45.8 % (35.4-49); HEMOGLOBIN 14.6 GM/dL (11.7-16.9); LYMPH % 10.4 % (8-40); MCH 23.9 pg (25.7-33.7); MCHC 31.9 g/dl (32.0-35.9); MEAN CELL VOLUME 74.8 fl (80-96); MEAN PLT VOLUME 11.1 fl (7.5-11.1); MONO % 6.2 % (3.8-10.2); NEUT % 82.6 % (42.8-82.8); PLATELET COUNT 361 K/MM3 (134-434); RBC 6.11 M/mm3 (4.00-5.60); RDW 16.8 % (11.9-15.9); WHITE BLOOD COUNT 7.8 K/mm3 (4.0-10.0)
[2018-02-17 10:42] LABS: INR 1.81 (0.82-1.09); PROTHROMBIN TIME (PATIENT) 20.4 SEC (9.7-13.0)
[2018-02-17 12:33] LABS: ALBUMIN 3.6 g/dl (3.4-5.0); ANION GAP 9 (8-16); BLOOD UREA NITROGEN 20 mg/dL (7-18); CHLORIDE 106 mmol/L (98-107); CO2 27 mmol/L (21-32); GLUCOSE,RANDOM 104 mg/dL (74-106); POTASSIUM 3.5 mmol/L (3.5-5.1); SGOT/AST 18 U/L (15-37); SGPT/ALT 24 U/L (12-78); SODIUM 142 mmol/L (136-145); TOT PROT 7.8 g/dl (6.4-8.2)
[2018-02-17 12:35] LABS: ALK PHOS 103 U/L (45-117); N-TERMINAL BNP 9505.06 pg/ml (5-125)
[2018-02-17] MEDS ORDERED: FUROSEMIDE 40 MG/4 ML INJECTABLE VIAL IVPUSH ONE ×2 (12:40→12:55)
[2018-02-17 12:42] LABS: PLATELET ESTIMATE ADEQUATE
[2018-02-17] MEDS ORDERED: FUROSEMIDE 40 MG/4 ML INJECTABLE VIAL ONE (12:52)
--- NOTE | 2018-02-17 13:44 | EKG ---
Test Reason : Blood Pressure : / mmHG Vent. Rate : 059 BPM Atrial Rate : 059 BPM P-R Int : 158 ms QRS Dur : 108 ms QT Int : 462 ms P-R-T Axes : 015 -19 011 degrees QTc Int : 457 ms SINUS BRADYCARDIA WITH OCCASIONAL PREMATURE VENTRICULAR COMPLEXES ATYPICAL LEFT BUNDLE BRANCH BLOCK ABNORMAL ECG WHEN COMPARED WITH ECG OF 26-JAN-2018 01:45, PREMATURE VENTRICULAR COMPLEXES ARE NOW PRESENT BASELINE ARTIFACT CLINICAL CORRELATION IS RECOMMENDED Confirmed by ANTONIO SCOTT, KYUNG ([id number]) on 02/17/2018 1:44:09 PM Referred By: Confirmed By:KYUNG ALVAREZ MD
[2018-02-17] MEDS ORDERED: CEFTRIAXONE 1 GM/50 ML BAG ONE (14:21)
[2018-02-17 15:06] LABS: URINE APPEARANCE CLEAR; URINE BILIRUBIN NEGATIVE (<2.0 mg/dL); URINE COLOR LTYELLOW; URINE GLUCOSE (UA) NEGATIVE (NEGATIVE); URINE KETONE NEGATIVE (NEGATIVE); URINE LEUK ESTERASE NEGATIVE (NEGATIVE); URINE NITRITE NEGATIVE (NEGATIVE); URINE PROTEIN NEGATIVE (NEGATIVE)
[2018-02-17 15:22] LABS: URINE BACTERIA RARE /hpf (NONE SEEN); URINE HYALINE CAST 1 /lpf
--- NOTE | 2018-02-17 16:18 | HP ---
Admitting History and Physical - Primary Care Physician PCP: Wei Sky - Admission Chief Complaint: sob History of Present Illness: 62 yo M with a h/o HTN, prostate ca. s/p prostatectomy (2007), brain AVM (2000) , CHF, Afib who p/w SOB. Patient reports acute onset of SOB yesterday evening. Patient states that he experienced SOB yesterday evening following straining attempt on defecation. Asx. w/chest tightness. Denies BPR, or abdominal pain. SOB improved following intake of 80 mg Lasix yesterday evening. Patient took daily Lasix 80 mg this AM. Reports that chest tightness is now improved. Sleeps with 2 pillows at night. at bedside to assist in report, who states patient with mild cough yesterday evening. No home O2 requirements or BIPAP. Sleep study scheduled for one week. Echo (01/28)30-35 % EF, Moderate to Severe Global Hypokinesis. Cardiac Cath (12/26/17) no abnml. - Past Medical History Cardiovascular: Yes: AFIB, CHF, HTN Heme/Onc: Yes: Cancer - Smoking History Smoking history: Former smoker Have you smoked in the past 12 months: No If you are a former smoker, when did you quit?: 20 yrs ago - Alcohol/Substance Use Hx Alcohol Use: Yes (weekends) Home Medications - Allergies Allergies/Adverse Reactions: Allergies Allergy/AdvReac Type Severity Reaction Status Date / Time No Known Allergies Allergy Verified 02/17/18 09:10 - Home Medications Home Medications: Ambulatory Orders Amiodarone HCl [Cordarone -] 200 mg PO DAILY 01/26/18 Apixaban [Eliquis] 5 mg PO BID 01/26/18 Hydralazine HCl 25 mg PO BID 01/26/18 Isosorbide Dinitrate [Isordil -] 20 mg PO BID 01/26/18 Metoprolol Tartrate [Lopressor] 100 mg PO BID 01/26/18 Spironolactone [Aldactone -] 25 mg PO DAILY 01/26/18 Furosemide [Lasix -] 80 mg PO BID #14 tablet 01/29/18 Amox-Tr/K Cl [Augmentin 500-125mg Tablet -] 1 tab PO BID@0800,1730 #6 tablet Review of Systems - Review of Systems Respiratory: reports: SOB Physical Examination Vital Signs: Vital Signs Temperature 97.6 F 02/17/18 14:44 Pulse Rate 58 L 02/17/18 14:44 Respiratory Rate 16 02/17/18 14:44 Blood Pressure 132/88 02/17/18 14:44 O2 Sat by Pulse Oximetry (%) 96 02/17/18 14:44 Constitutional: Yes: No Distress HENT: Yes: Atraumatic Neck: Yes: Supple Cardiovascular: Yes: Regular Rate and Rhythm Respiratory: Yes: Rhonchi Gastrointestinal: Yes: Normal Bowel Sounds Extremities: Yes: WNL Labs: CBC, BMP 02/17/18 09:47 02/17/18 11:45 Imaging - Results X-ray: Report Reviewed Problem List - Problems (1) CHF (congestive heart failure) Assessment/Plan: on iv lasix and other meds inmproving cardiology on board Code(s): I50.9 - HEART FAILURE, UNSPECIFIED Qualifiers: Heart failure type: unspecified Heart failure chronicity: acute on chronic Qualified Code(s): I50.9 - Heart failure, unspecified (2) Acute renal insufficiency Code(s): N28.9 - DISORDER OF KIDNEY AND URETER, UNSPECIFIED (3) Essential (primary) hypertension Code(s): I10 - ESSENTIAL (PRIMARY) HYPERTENSION (4) ASHD (arteriosclerotic heart disease) Code(s): I25.10 - ATHSCL HEART DISEASE OF [place] CORONARY ARTERY W/O ANG PCTRS (5) Atrial fibrillation Code(s): I48.91 - UNSPECIFIED ATRIAL FIBRILLATION (6) Pneumonia Assessment/Plan: iv abx chest ct id on board i Code(s): J18.9 - PNEUMONIA, UNSPECIFIED ORGANISM Assessment/Plan Laboratory Tests 02/17/18 02/17/18 02/17/18 09:30 09:47 09:47 WBC 7.8 D RBC 6.11 H Hgb 14.6 Hct 45.8 MCV 74.8 L MCH 23.9 L MCHC 31.9 L RDW 16.8 H Plt Count 361 D MPV 11.1 Neutrophils % 82.6 D Lymphocytes % 10.4 D Monocytes % 6.2 Eosinophils % 0.3 D Basophils % 0.5 Nucleated RBC % 0 Platelet Estimate Adequate Platelet Comment Large platelets PT with INR INR D-Dimer 952 H Sodium Potassium Chloride Carbon Dioxide Anion Gap BUN Creatinine Creat Clearance w eGFR Random Glucose Calcium Total Bilirubin AST ALT Alkaline Phosphatase Creatine Kinase Cancelled Troponin I Cancelled B-Natriuretic Peptide Cancelled Total Protein Albumin Urine Color Urine Appearance Urine pH Ur Specific [place] Urine Protein Urine Glucose (UA) Urine Ketones Urine Blood Urine Nitrite Urine Bilirubin Urine Urobilinogen Ur Leukocyte Esterase Urine WBC (Auto) Urine RBC (Auto) Urine Bacteria Hyaline Casts 02/17/18 02/17/18 02/17/18 09:47 09:47 11:45 WBC RBC Hgb Hct MCV MCH MCHC RDW Plt Count MPV Neutrophils % Lymphocytes % Monocytes % Eosinophils % Basophils % Nucleated RBC % Platelet Estimate Platelet Comment PT with INR 20.40 H INR 1.81 H D-Dimer Sodium Cancelled 142 Potassium Cancelled 3.5 Chloride Cancelled 106 Carbon Dioxide Cancelled 27 Anion Gap Cancelled 9 BUN Cancelled 20 H Creatinine Cancelled 2.0 H Creat Clearance w eGFR Cancelled 34.03 Random Glucose Cancelled 104 D Calcium Cancelled 9.0 Total Bilirubin Cancelled 1.0 AST Cancelled 18 ALT Cancelled 24 Alkaline Phosphatase Cancelled 103 Creatine Kinase 65 Troponin I 0.02 D B-Natriuretic Peptide 9505.06 H Total Protein Cancelled 7.8 Albumin Cancelled 3.6 Urine Color Urine Appearance Urine pH Ur Specific [place] Urine Protein Urine Glucose (UA) Urine Ketones Urine Blood Urine Nitrite Urine Bilirubin Urine Urobilinogen Ur Leukocyte Esterase Urine WBC (Auto) Urine RBC (Auto) Urine Bacteria Hyaline Casts 02/17/18 14:46 WBC RBC Hgb Hct MCV MCH MCHC RDW Plt Count MPV Neutrophils % Lymphocytes % Monocytes % Eosinophils % Basophils % Nucleated RBC % Platelet Estimate Platelet Comment PT with INR INR D-Dimer Sodium Potassium Chloride Carbon Dioxide Anion Gap BUN Creatinine Creat Clearance w eGFR Random Glucose Calcium Total Bilirubin AST ALT Alkaline Phosphatase Creatine Kinase Troponin I B-Natriuretic Peptide Total Protein Albumin Urine Color Ltyellow Urine Appearance Clear Urine pH 6.0 Ur Specific [place] 1.009 Urine Protein Negative Urine Glucose (UA) Negative Urine Ketones Negative Urine Blood 1+ H Urine Nitrite Negative Urine Bilirubin Negative Urine Urobilinogen 2.0 Ur Leukocyte Esterase Negative Urine WBC (Auto) None Urine RBC (Auto) 8 Urine Bacteria Rare Hyaline Casts 1 Active Medications Generic Name Dose Route Start Last Admin Trade Name Freq PRN Reason Stop Dose Admin Albuterol/Ipratropium 1 amp 02/17/18 16:22 Duoneb - NEB Q4H PRN SHORTNESS OF BREATH Amiodarone HCl 200 mg 02/18/18 10:00 Cordarone - PO DAILY JHOAN Apixaban 5 mg 02/17/18 22:00 Eliquis - PO BID JHOAN Furosemide 80 mg 02/17/18 17:15 02/17/18 17:59 Lasix - PO 80 mg BIDLASIX JHOAN Administration Hydralazine HCl 25 mg 02/17/18 22:00 Apresoline - PO BID JHOAN Isosorbide Dinitrate 20 mg 02/17/18 22:00 Isordil - PO BID JHOAN Metoprolol Tartrate 100 mg 02/17/18 22:00 Lopressor - PO BID JHOAN Spironolactone 25 mg 02/18/18 10:00 Aldactone - PO DAILY JHOAN Active Medications Generic Name Dose Route Start Last Admin Trade Name Freq PRN Reason Stop Dose Admin Albuterol/Ipratropium 1 amp 02/17/18 16:22 Duoneb - NEB Q4H PRN SHORTNESS OF BREATH Amiodarone HCl 200 mg 02/18/18 10:00 02/20/18 09:58 Cordarone - PO 200 mg DAILY JHOAN Administration Amoxicillin/Clavulanate Potassium 1 tab 02/20/18 17:30 Augmentin - 500mg Tablet PO BID@0800,1730 [facility] Apixaban 5 mg 02/17/18 22:00 02/20/18 09:58 Eliquis - PO 5 mg BID JHOAN Administration Furosemide 80 mg 02/18/18 14:00 02/20/18 14:35 Lasix Injection - IVPUSH Not Given BID@0600,1400 [facility] Hydralazine HCl 25 mg 02/17/18 22:00 02/20/18 09:58 Apresoline - PO 25 mg BID JHOAN Administration Isosorbide Dinitrate 20 mg 02/19/18 10:00 02/20/18 09:58 Isordil - PO 20 mg BIDISORDIL JHOAN Administration Metoprolol Tartrate 50 mg 02/19/18 13:53 02/20/18 09:58 Lopressor - PO 50 mg BID JHOAN Administration Spironolactone 25 mg 02/18/18 10:00 02/20/18 09:58 Aldactone - PO 25 mg DAILY JHOAN Administration
[2018-02-17] MEDS ORDERED: ALBUTEROL SO4 2.5/IPRATROPIUM 0.5 INH SOL 3 ML VIAL.NEB. NEB PRN (16:22)
[2018-02-17] MEDS ORDERED: PT OWN MED DRAWER 7, Y5N ONE ×2 (17:58→21:45)
[2018-02-17] MEDS: FUROSEMIDE 40 MG TABLET (FP) PO SCH (17:59)
[2018-02-17] MEDS: METOPROLOL TARTRATE 50 MG TABLET (FP) PO SCH (22:08)
[2018-02-17] MEDS: APIXABAN 5 MG TABLET PO SCH (22:08)
[2018-02-17] MEDS: hydrALAZINE HCL 25 MG TABLET (FP) PO SCH (22:08)
[2018-02-18] MEDS: ISOSORBIDE DINITRATE 20 MG TABLET (FP) PO SCH ×3 (06:28→21:41)
[2018-02-18] MEDS: FUROSEMIDE 40 MG TABLET (FP) PO SCH (06:29)
[2018-02-18] MEDS: METOPROLOL TARTRATE 50 MG TABLET (FP) PO SCH ×2 (09:49→21:40)
[2018-02-18] MEDS: hydrALAZINE HCL 25 MG TABLET (FP) PO SCH ×2 (09:49→21:41)
[2018-02-18] MEDS: SPIRONOLACTONE 25 MG TABLET (FP) PO SCH (09:49)
[2018-02-18] MEDS: APIXABAN 5 MG TABLET PO SCH ×2 (09:50→21:41)
[2018-02-18] MEDS: AMIODARONE HCL 200 MG TABLET (FP) PO SCH (09:50)
--- NOTE | 2018-02-18 10:29 | CON.CARD ---
Consult Consult Specialty:: Cardiology Referred by:: Dr. Sky Reason for Consultation:: SOB, edema - History of Present Illness Chief Complaint: SOB, edema History of Present Illness: 62 year old man with pmh HTN, Prostate Ca s/p prostatectomy (2007), brain AVM s/ p repair (2000), AFIB chronic systolic CHF with an echocardiogram at [facility] 12/29/17 showing an EF of 15% with moderate MR. A cardiac cath performed 12/26/17 showed non obstructive CORS with minimal luminal irregularities and elevated LVEDP admitted with weight gain, progressively worsening hayden, b/l LE edema, chest tightness. Pt seen and examined today in [facility]. Pt states he first noticed he had been gaining weight at home. He increased his Lasix on his own to help improve his fluid overload but did not notice a significant response and worsened over the weekend thus he came to the ER. Echo 01/28/18-Mod to sev LV systolic dysfunction, LVEF 30-35%, mod MR, mod TR, mild AR, no pericardial effusion, large pleural effusion Cath 12/26/17 [facility] nonobstructive CAD, mild luminal irreg, elevated LVEDP - History Source History Provided By: Patient, Medical Record Limitations to Obtaining History: No Limitations - Past Medical History Cardio/Vascular: Yes: AFIB, CAD, CHF, HTN, Hyperlipdemia, Mitral Insufficiency Renal/: Yes: Cancer - Alcohol/Substance Use Hx Alcohol Use: Yes (weekends) - Smoking History Smoking history: Former smoker Have you smoked in the past 12 months: No If you are a former smoker, when did you quit?: 20 yrs ago - Social History ADL: Independent History of Recent Travel: No Home Medications - Allergies Allergies/Adverse Reactions: Allergies Allergy/AdvReac Type Severity Reaction Status Date / Time No Known Allergies Allergy Verified 02/17/18 09:10 - Home Medications Home Medications: Ambulatory Orders Amiodarone HCl [Cordarone -] 200 mg PO DAILY 01/26/18 Apixaban [Eliquis] 5 mg PO BID 01/26/18 Hydralazine HCl 25 mg PO BID 01/26/18 Isosorbide Dinitrate [Isordil -] 20 mg PO BID 01/26/18 Metoprolol Tartrate [Lopressor] 100 mg PO BID 01/26/18 Spironolactone [Aldactone -] 25 mg PO DAILY 01/26/18 Furosemide [Lasix -] 80 mg PO BID #14 tablet 01/29/18 Family Disease History - Family Disease History Family History: Denies Review of Systems - Review of Systems Constitutional: denies: No Symptoms, Chills, Diaphoresis, Fever, Lethargy, Loss of Appetite, Malaise, Night Sweats, Unintentional Wgt. Loss, Weakness, Other Eyes: denies: No Symptoms, Blind Spots, Blurred Vision, Double Vision, Eye Pain , Floaters, Photophobia, Recent Change in Vision, Other HENT: denies: No Symptoms, Difficult Swallowing, Ear Discharge, Ear Pain, Epistaxis, Gingival Bleeding, Hearing Loss, Mouth Swelling, Nasal Congestion, Ocular Prosthesis, Throat Pain, Toothache, Ringing in Ears, Other Neck: denies: No Symptoms, Decreased ROM, Lumps, Pain on Movement, Stiffness, Swollen Glands, Tenderness, Other Cardiovascular: reports: Edema, Shortness of Breath. denies: No Symptoms, Chest Pain, Palpitations, Other Respiratory: reports: Exercise Intolerance, SOB, SOB on Exertion. denies: No Symptoms, Cough, Hemoptysis, Orthopnea, PND, Snoring, Wheezing, Other Gastrointestinal: denies: No Symptoms, Abdominal Pain, Bloating, Constipation, Diarrhea, Dysphagia, Indigestion, Melena, Nausea, Rectal Bleeding, Vomiting, Vomiting Blood, Other Genitourinary: denies: No Symptoms, Burning, Discharge, Dysuria, Flank Pain, Frequency, Hematuria, Incontinence, Lesions, Menses, Pain, Testicular Mass, Testicular Pain, Testicular Swelling, Urgency, Vaginal Bleeding, Other Breasts: denies: No Symptoms Reported, See HPI, Breast Implants, Discharge from Nipple, Lumps, Pain, Skin Changes, Other Musculoskeletal: denies: No Symptoms, Back Pain, Crepitus, Decreased ROM, Extremity Pain, Joint Pain, Joint Swelling, Muscle Pain, Muscle Cramps, Muscle Weakness, Other Integumentary: denies: No Symptoms, Blister, Bruising, Change in Color, Eczema, Erythema, Incision, Lesions, Lump, Pallor, Pruritis, Rash, Wound, Other Neurological: denies: No Symptoms, Change in LOC, Change in Speech, Confusion, Dizziness, Headache, Incoordination, Numbness, Parasthesia, Pre-Existing Deficit , Seizure, Syncope, Tremors, Unsteady Gait, Weakness, Other Endocrine: denies: No Symptoms, Excessive Sweating, Flushing, Increased Hunger, Increased Thirst, Intolerance to Cold, Intolerance to Heat, Unexplained Weight Gain, Unexplained Weight Loss, Other Hematology/Lymphatic: denies: No Symptoms, Easily Bruised, Excessive Bleeding, Swollen Glands, Other Psychiatric: denies: No Symptoms, Altered Sleep Pattern, Anxiety, Depression, Hallucinations, Panic, Paranoia, Suicidal, Other - Risk Factors Known Risk Factors: Yes: Hypercholesterolemia, Hypertension Vital Signs: Vital Signs Temperature 97.5 F L 02/18/18 02:00 Pulse Rate 55 L 02/18/18 05:54 Respiratory Rate 18 02/18/18 05:54 Blood Pressure 127/84 02/18/18 05:54 O2 Sat by Pulse Oximetry (%) 96 02/17/18 14:44 Constitutional: Yes: No Distress, Calm, Obese Eyes: Yes: WNL, Conjunctiva Clear, EOM Intact, PERRL HENT: Yes: WNL, Atraumatic, Normocephalic Neck: Yes: WNL, Supple, Trachea Midline Respiratory: Yes: Regular, Diminished, On Nasal O2, Rales, SOB on Exertion. No : Rhonchi, Wheezes Gastrointestinal: Yes: WNL, Normal Bowel Sounds, Soft. No: Distention, Tenderness Cardiovascular: Yes: Regular Rate and Rhythm. No: Bradycardia, Tachycardia, Pulse Irregular, Gallop, Rub, Varicosities JVD: No Carotid Bruit: No PMI: Non-Displaced Heart Sounds: Yes: S1, S2. No: Split S2, S3, S4, Clicks, Gallop, Rub, Bruit Murmur: Yes: Systolic Murmur Extremities: Yes: WNL Edema: Yes Edema: LLE: 1+, RLE: 1+ Peripheral Pulses WNL: Yes Neurological: Yes: Alert, Oriented Psychiatric: Yes: Alert, Oriented - Other Data Labs, Other Data: CBC, BMP 02/17/18 09:47 02/17/18 11:45 INR, PTT INR 1.81 (0.82-1.09) H 02/17/18 09:47 Troponin, BNP 02/17/18 02/17/18 02/17/18 09:47 11:45 16:38 Troponin I Cancelled 0.02 D 0.03 D B-Natriuretic Peptide Cancelled 9505.06 H Troponin, BNP 02/17/18 02/17/18 02/17/18 09:47 11:45 16:38 Troponin I Cancelled 0.02 D 0.03 D B-Natriuretic Peptide Cancelled 9505.06 H ekg-sinus javan 59bpm, pvc, borderline lbbb Echo: Report Reviewed Prior Cardiac Procedures: Cardiac Catheterization Ejection Fraction %: LVEF < 40 % Imaging - Results Chest X-ray: Report Reviewed, Image Reviewed EKG: Report Reviewed, Image Reviewed Other: Report Reviewed, Image Reviewed (tele-nsr, frequent pvcs) Assessment/Plan 62 year old man with pmh HTN, Prostate Ca s/p prostatectomy (2007), brain AVM s/ p repair (2000), AFIB chronic systolic CHF with an echocardiogram at [facility] 12/29/17 showing an EF of 15% with moderate MR. A cardiac cath performed 12/26/17 showed non obstructive CORS with minimal luminal irregularities and elevated LVEDP admitted with weight gain, progressively worsening hayden, b/l LE edema, chest tightness. Pt seen and examined today in [facility]. Pt states he first noticed he had been gaining weight at home. He increased his Lasix on his own to help improve his fluid overload but did not notice a significant response and worsened over the weekend thus he came to the ER. Echo 01/28/18-Mod to sev LV systolic dysfunction, LVEF 30-35%, mod MR, mod TR, mild AR, no pericardial effusion, large pleural effusion Cath 12/26/17 [facility] nonobstructive CAD, mild luminal irreg, elevated LVEDP Acute on chronic systolic chf-NICM -change Lasix to 80mg IV BID -monitor strict I/Os, daily weights, bun/creat, electrolytes and replete as needed -cont other home cardiac CHF meds On metoprolol, spironolactone, and hydralazine/isosorbide Arb on hold and to re-eval as outpatient whether can restart -cardiac cath as above non-obst CAD -plan for optimal medical management and close outpatient f/up after discharge for consideration for ICD if LVEF does not improve with medical rx Afib-paroxysmal, currently NSR -cont amio, metoprolol, eliquis
--- NOTE | 2018-02-18 11:05 | PN ---
Progress Note (short form) - Note Progress Note: PULMONARY CONSULTATION DICTATED 02/18/18 IMP DYSPNEA ACUTE ON CHRONIC SYSTOLIC HF CARDIOMYOPATHY ASHD PAF CKD OSAS H/O PROSTATE CA S/P PROSTATECTOMY H/O BRAIN AVM PLAN IV LASIX O2 DAILY WTS AC MONITOR LYTES,RENAL FUNCTION SLEEP STUDY SCHEDULED FOR NEXT WEEK DR ALVAREZ Problem List - Problems (1) Acute on chronic systolic (congestive) heart failure Code(s): I50.23 - ACUTE ON CHRONIC SYSTOLIC (CONGESTIVE) HEART FAILURE (2) CHF (congestive heart failure) Code(s): I50.9 - HEART FAILURE, UNSPECIFIED Qualifiers: Heart failure type: unspecified Heart failure chronicity: acute on chronic Qualified Code(s): I50.9 - Heart failure, unspecified (3) Atrial fibrillation Code(s): I48.91 - UNSPECIFIED ATRIAL FIBRILLATION (4) Cardiomyopathy Code(s): I42.9 - CARDIOMYOPATHY, UNSPECIFIED (5) Dyspnea Code(s): R06.00 - DYSPNEA, UNSPECIFIED (6) Essential (primary) hypertension Code(s): I10 - ESSENTIAL (PRIMARY) HYPERTENSION (7) ASHD (arteriosclerotic heart disease) Code(s): I25.10 - ATHSCL HEART DISEASE OF [place] CORONARY ARTERY W/O ANG PCTRS (8) Sleep apnea Code(s): G47.30 - SLEEP APNEA, UNSPECIFIED (9) Chronic kidney disease Code(s): N18.9 - CHRONIC KIDNEY DISEASE, UNSPECIFIED
--- NOTE | 2018-02-18 11:29 | CONS ---
PULMONARY CONSULTATION DATE OF CONSULTATION: 02/18/2018 REFERRING PHYSICIAN: Wei Sky MD The patient is a 62-year-old black male known to me in previous hospitalization , with past medical history of hypertension, cardiomyopathy with chronic systolic CHF, echo in December 2017, showing ejection fraction of 15%, moderate mitral regurgitation. He also underwent a cardiac catheterization in December 2017, which showed nonobstructive coronary disease and minimal luminal irregularities, with elevated left ventricular end-diastolic pressure; hypertension; prostate CA status post prostatectomy; history of brain AVM status post repair in 2000; likely obstructive sleep apnea. The patient recently underwent a sleep screen on previous hospitalization that revealed AHI of 49, admitted to [facility] with complaint of increasing shortness of breath, dyspnea on exertion, bilateral lower extremity edema, and chest tightness. Patient denied any complaints of nausea, vomiting, or diaphoresis. Of note is he was recently discharged from [facility] after being treated for congestive heart failure. He states that he started noticing increasing weight gain at home. He increased his Lasix on his own which initially improved, but started developing increasing symptoms. At which time, he came to the emergency room. He denied any fevers, chills, nausea, vomiting, and diaphoresis. Denied any hemoptysis. PAST MEDICAL HISTORY: Again includes congestive heart failure, cardiomyopathy with an ejection fraction of 15%, non-obstructive coronary artery disease, minimal mild luminal irregularities, left ventricular end-diastolic pressure, hypertension, prostate CA status post prostatectomy, brain AVM status post repair in 2010, obstructive sleep apnea, chronic kidney disease. SOCIAL HISTORY: Retired communication engineer by profession. History of tobacco use, quit 20 years ago. REVIEW OF SYSTEMS: Positive orthopnea. Positive dyspnea. Positive chest tightness. No chest pain. No cough. No hemoptysis. No abdominal pain. Positive lower extremity edema. CURRENT MEDICATIONS: Include Cordarone, Eliquis, DuoNeb, Lopressor, Apresoline, Lasix, Aldactone, Isordil. PHYSICAL EXAMINATION: General: The patient is a well-developed, well-nourished male, awake, alert, in no acute respiratory distress. Vital Signs: He is currently afebrile. Blood pressure is 138/87. Respiratory rate is 18. O2 saturation is 96% on room air. HEENT: Normocephalic, atraumatic. Neck: Supple. Heart: Regular. S1. S2. Chest: Clear. Abdomen: Soft. Bowel sounds positive. Extremities: Trace bilateral extremity edema. LABORATORY DATA: WBC is 7.8, hemoglobin 14.6, hematocrit 45.8, with a platelet count of 361,000. INR is 1.81. Chemistries: BUN 20, creatinine 2.0. BNP is 9505. Chest x-ray: Pulmonary vascular congestion bilaterally. Duplex, lower extremities: No evidence of DVT. IMPRESSION: 1. Dyspnea, [id number] systolic congestive heart failure. 2. Hypertension. 3. Chronic kidney disease. 4. Obstructive sleep apnea. 5. History of prostate cancer status post prostatectomy. 6. Brain arteriovenous malformation status post repair. 7. PAF PLAN: Continue IV Lasix,Aldactone, supplemental O2, daily weights. Sleep study scheduled as an outpatient in 1 week. Obtain followup chest x-rays. Monitor renal function. TAMERA Atwood M.D. [id number] MTDD
[2018-02-18] MEDS ORDERED: FUROSEMIDE 40 MG/4 ML INJECTABLE VIAL IVPUSH ONE (12:55)
--- NOTE | 2018-02-18 13:40 | CON.ID ---
Consult Consult Specialty:: infectious diseases Reason for Consultation:: pneumonia - History of Present Illness Chief Complaint: sob History of Present Illness: 62 year old man with pmh HTN, Prostate Ca s/p prostatectomy (2007), brain AVM s/ p repair (2000), AFIB chronic systolic CHF came to the hospital because of progressively worsening sob, b/l LE edema, chest tightness. He states he first noticed he had been gaining weight at home. He increased his Lasix on his own to help improve his fluid overload but did not notice a significant response and worsened over the weekend thus he came to the ER. he mentions that he was constantly becoming sob - Past Medical History Cardio/Vascular: Yes: AFIB, CAD, CHF, HTN, Hyperlipdemia, Mitral Insufficiency Renal/: Yes: Cancer - Alcohol/Substance Use Hx Alcohol Use: Yes (weekends) - Smoking History Smoking history: Former smoker Have you smoked in the past 12 months: No If you are a former smoker, when did you quit?: 20 yrs ago - Social History ADL: Independent History of Recent Travel: No Home Medications - Allergies Allergies/Adverse Reactions: Allergies Allergy/AdvReac Type Severity Reaction Status Date / Time No Known Allergies Allergy Verified 02/17/18 09:10 - Home Medications Home Medications: Ambulatory Orders Amiodarone HCl [Cordarone -] 200 mg PO DAILY 01/26/18 Apixaban [Eliquis] 5 mg PO BID 01/26/18 Hydralazine HCl 25 mg PO BID 01/26/18 Isosorbide Dinitrate [Isordil -] 20 mg PO BID 01/26/18 Metoprolol Tartrate [Lopressor] 100 mg PO BID 01/26/18 Spironolactone [Aldactone -] 25 mg PO DAILY 01/26/18 Furosemide [Lasix -] 80 mg PO BID #14 tablet 01/29/18 Review of Systems - Review of Systems Constitutional: reports: No Symptoms Eyes: reports: No Symptoms HENT: reports: No Symptoms Neck: reports: No Symptoms Cardiovascular: reports: Shortness of Breath Respiratory: reports: SOB, SOB on Exertion, Other Genitourinary: reports: No Symptoms Breasts: reports: No Symptoms Reported Musculoskeletal: reports: No Symptoms Integumentary: reports: No Symptoms Neurological: reports: No Symptoms Endocrine: reports: No Symptoms Hematology/Lymphatic: reports: No Symptoms Psychiatric: reports: No Symptoms Physical Exam Vital Signs: Vital Signs Temperature 98.1 F 02/18/18 10:00 Pulse Rate 62 02/18/18 10:00 Respiratory Rate 18 02/18/18 10:00 Blood Pressure 138/87 02/18/18 10:00 O2 Sat by Pulse Oximetry (%) 96 02/18/18 09:00 Constitutional: Yes: Well Nourished, Calm, Mild Distress Eyes: Yes: Conjunctiva Clear HENT: Yes: Atraumatic, Normocephalic Neck: Yes: Supple, Trachea Midline Cardiovascular: Yes: Regular Rate and Rhythm Respiratory: Yes: Regular, Poor Air Entry (bases), Rhonchi Gastrointestinal: Yes: Normal Bowel Sounds, Soft Musculoskeletal: Yes: WNL Edema: LLE: Trace, RLE: Trace Neurological: Yes: Alert, Oriented Psychiatric: Yes: Alert, Oriented Labs: CBC, BMP 02/17/18 09:47 02/17/18 11:45 Imaging - Results Chest X-ray: Report Reviewed, Image Reviewed Assessment/Plan Problem List - Problems (1) CHF (congestive heart failure) Code(s): I50.9 - HEART FAILURE, UNSPECIFIED Qualifiers: Heart failure type: unspecified Heart failure chronicity: acute on chronic Qualified Code(s): I50.9 - Heart failure, unspecified (2) Acute renal insufficiency Code(s): N28.9 - DISORDER OF KIDNEY AND URETER, UNSPECIFIED (3) Essential (primary) hypertension Code(s): I10 - ESSENTIAL (PRIMARY) HYPERTENSION (4) ASHD (arteriosclerotic heart disease) Code(s): I25.10 - ATHSCL HEART DISEASE OF [place] CORONARY ARTERY W/O ANG PCTRS (5) Atrial fibrillation Code(s): I48.91 - UNSPECIFIED ATRIAL FIBRILLATION pneumonia plan patient will continue ceftriaxone cardio on case would suggest to get a ct scan of the chest incentive bird rest as per the team
[2018-02-18] MEDS: FUROSEMIDE 40 MG/4 ML INJECTABLE VIAL IVPUSH SCH (14:56)
[2018-02-18] MEDS ORDERED: cefTRIAXone SODIUM 1 GM VIAL ONE (15:02)
[2018-02-18] MEDS ORDERED: DEXTROSE 5%-WATER - 50 ML IVPB ONE (15:03)
[2018-02-18] MEDS: CEFTRIAXONE 1 GM in DEXTROSE 5%-WATER - 50 ML IVPB SCH (15:33)
--- NOTE | 2018-02-18 17:56 | PN ---
Progress Note, Physician History of Present Illness: feeling better - Current Medication List Current Medications: Active Medications Albuterol/Ipratropium (Duoneb -) 1 amp NEB Q4H PRN PRN Reason: SHORTNESS OF BREATH Amiodarone HCl (Cordarone -) 200 mg PO DAILY [facility] Last Admin: 02/18/18 09:50 Dose: 200 mg Apixaban (Eliquis -) 5 mg PO BID [facility] Last Admin: 02/18/18 09:50 Dose: 5 mg Furosemide (Lasix Injection -) 80 mg IVPUSH BID@0600,1400 [facility] Last Admin: 02/18/18 14:56 Dose: 80 mg Hydralazine HCl (Apresoline -) 25 mg PO BID [facility] Last Admin: 02/18/18 09:49 Dose: 25 mg Ceftriaxone Sodium 1 gm/ (Dextrose) 50 mls @ 200 mls/hr IVPB DAILY [facility]; Protocol Last Admin: 02/18/18 15:33 Dose: 200 mls/hr Isosorbide Dinitrate (Isordil -) 20 mg PO BID [facility] Last Admin: 02/18/18 09:49 Dose: 20 mg Metoprolol Tartrate (Lopressor -) 100 mg PO BID [facility] Last Admin: 02/18/18 09:49 Dose: 100 mg Spironolactone (Aldactone -) 25 mg PO DAILY [facility] Last Admin: 02/18/18 09:49 Dose: 25 mg - Objective Vital Signs: Vital Signs Temperature 97.5 F L 02/18/18 14:00 Pulse Rate 57 L 02/18/18 14:00 Respiratory Rate 18 02/18/18 14:00 Blood Pressure 127/79 02/18/18 14:00 O2 Sat by Pulse Oximetry (%) 96 02/18/18 09:00 Constitutional: Yes: No Distress HENT: Yes: Atraumatic Neck: Yes: Supple Cardiovascular: Yes: Regular Rate and Rhythm Respiratory: Yes: CTA Bilaterally Gastrointestinal: Yes: Normal Bowel Sounds Extremities: Yes: WNL Neurological: Yes: Alert, Oriented Labs: CBC, BMP 02/17/18 09:47 02/17/18 11:45 INR, PTT INR 1.81 (0.82-1.09) H 02/17/18 09:47 Problem List - Problems (1) CHF (congestive heart failure) Assessment/Plan: on iv lasix and other meds improving cardiology on board Code(s): I50.9 - HEART FAILURE, UNSPECIFIED Qualifiers: Heart failure type: unspecified Heart failure chronicity: acute on chronic Qualified Code(s): I50.9 - Heart failure, unspecified (2) Acute renal insufficiency Assessment/Plan: little better fu labs Code(s): N28.9 - DISORDER OF KIDNEY AND URETER, UNSPECIFIED (3) Essential (primary) hypertension Assessment/Plan: on meds stable Code(s): I10 - ESSENTIAL (PRIMARY) HYPERTENSION (4) ASHD (arteriosclerotic heart disease) Code(s): I25.10 - ATHSCL HEART DISEASE OF [place] CORONARY ARTERY W/O ANG PCTRS (5) Atrial fibrillation Assessment/Plan: on meds stable Code(s): I48.91 - UNSPECIFIED ATRIAL FIBRILLATION (6) Pneumonia Assessment/Plan: iv abx chest ct id on board i Code(s): J18.9 - PNEUMONIA, UNSPECIFIED ORGANISM Assessment/Plan getting chest ct for pulmonary infilterate
[2018-02-19] MEDS: FUROSEMIDE 40 MG/4 ML INJECTABLE VIAL IVPUSH SCH ×2 (06:09→14:31)
[2018-02-19 07:12] LABS: BASO % 0.8 % (0-2.0); EOS % 2.6 % (0-4.5); HEMATOCRIT 39.6 % (35.4-49); HEMOGLOBIN 12.9 GM/dL (11.7-16.9); LYMPH % 14.7 % (8-40); MCHC 32.6 g/dl (32.0-35.9); MEAN CELL VOLUME 73.8 fl (80-96); MEAN PLT VOLUME 10.6 fl (7.5-11.1); MONO % 11.1 % (3.8-10.2); NEUT % 70.8 % (42.8-82.8); PLATELET COUNT 192 K/MM3 (134-434); RBC 5.37 M/mm3 (4.00-5.60); RDW 16.1 % (11.9-15.9); WHITE BLOOD COUNT 6.3 K/mm3 (4.0-10.0)
[2018-02-19 07:38] LABS: ALBUMIN 3.1 g/dl (3.4-5.0); ANION GAP 7 (8-16); BLOOD UREA NITROGEN 22 mg/dL (7-18); CALCIUM 8.5 mg/dL (8.5-10.1); CHLORIDE 105 mmol/L (98-107); CO2 30 mmol/L (21-32); GLUCOSE,RANDOM 85 mg/dL (74-106); SGOT/AST 13 U/L (15-37); SGPT/ALT 18 U/L (12-78); SODIUM 142 mmol/L (136-145)
[2018-02-19 07:47] LABS: ALK PHOS 84 U/L (45-117); BILIRUBIN,TOTAL 0.9 mg/dL (0.2-1.0); CREATININE 1.9 mg/dL (0.7-1.3); TOT PROT 6.8 g/dl (6.4-8.2)
[2018-02-19] MEDS ORDERED: cefTRIAXone SODIUM 1 GM VIAL ONE (09:38)
[2018-02-19] MEDS ORDERED: DEXTROSE 5%-WATER - 50 ML IVPB ONE (09:38)
[2018-02-19] MEDS: METOPROLOL TARTRATE 50 MG TABLET (FP) PO SCH ×3 (10:40→21:57)
[2018-02-19] MEDS: AMIODARONE HCL 200 MG TABLET (FP) PO SCH (10:40)
[2018-02-19] MEDS: hydrALAZINE HCL 25 MG TABLET (FP) PO SCH ×2 (10:40→21:57)
[2018-02-19] MEDS: APIXABAN 5 MG TABLET PO SCH ×2 (10:40→21:57)
[2018-02-19] MEDS: SPIRONOLACTONE 25 MG TABLET (FP) PO SCH (10:40)
--- NOTE | 2018-02-19 10:40 | PN ---
Progress Note, Physician History of Present Illness: pulmonary alert,feeling better,-resp distress,-cp - Current Medication List Current Medications: Active Medications Albuterol/Ipratropium (Duoneb -) 1 amp NEB Q4H PRN PRN Reason: SHORTNESS OF BREATH Amiodarone HCl (Cordarone -) 200 mg PO DAILY [facility] Last Admin: 02/18/18 09:50 Dose: 200 mg Apixaban (Eliquis -) 5 mg PO BID [facility] Last Admin: 02/18/18 21:41 Dose: 5 mg Furosemide (Lasix Injection -) 80 mg IVPUSH BID@0600,1400 [facility] Last Admin: 02/19/18 06:09 Dose: 80 mg Hydralazine HCl (Apresoline -) 25 mg PO BID [facility] Last Admin: 02/18/18 21:41 Dose: 25 mg Ceftriaxone Sodium 1 gm/ (Dextrose) 50 mls @ 200 mls/hr IVPB DAILY [facility]; Protocol Last Admin: 02/18/18 15:33 Dose: 200 mls/hr Isosorbide Dinitrate (Isordil -) 20 mg PO BIDISORDIL [facility] Metoprolol Tartrate (Lopressor -) 100 mg PO BID [facility] Last Admin: 02/18/18 21:40 Dose: 100 mg Spironolactone (Aldactone -) 25 mg PO DAILY [facility] Last Admin: 02/18/18 09:49 Dose: 25 mg - Objective Vital Signs: Vital Signs Temperature 97.7 F 02/19/18 06:00 Pulse Rate 54 L 02/19/18 06:00 Respiratory Rate 18 02/19/18 06:00 Blood Pressure 134/71 02/19/18 06:00 O2 Sat by Pulse Oximetry (%) 97 02/18/18 21:00 Constitutional: Yes: Well Nourished, Calm Eyes: Yes: WNL HENT: Yes: WNL Neck: Yes: WNL Cardiovascular: Yes: Regular Rate and Rhythm, S1, S2 Respiratory: Yes: Diminished Gastrointestinal: Yes: Normal Bowel Sounds, Soft Extremities: Yes: WNL Edema: No Labs: CBC, BMP 02/19/18 06:45 02/19/18 06:45 INR, PTT INR 1.81 (0.82-1.09) H 02/17/18 09:47 - ....Imaging Cat Scan: Image Reviewed (moderate-large bilateral pleural effusions) Problem List - Problems (1) Acute on chronic systolic (congestive) heart failure Code(s): I50.23 - ACUTE ON CHRONIC SYSTOLIC (CONGESTIVE) HEART FAILURE (2) CHF (congestive heart failure) Code(s): I50.9 - HEART FAILURE, UNSPECIFIED Qualifiers: Heart failure type: unspecified Heart failure chronicity: acute on chronic Qualified Code(s): I50.9 - Heart failure, unspecified (3) Atrial fibrillation Code(s): I48.91 - UNSPECIFIED ATRIAL FIBRILLATION (4) Cardiomyopathy Code(s): I42.9 - CARDIOMYOPATHY, UNSPECIFIED (5) Dyspnea Code(s): R06.00 - DYSPNEA, UNSPECIFIED (6) Essential (primary) hypertension Code(s): I10 - ESSENTIAL (PRIMARY) HYPERTENSION (7) ASHD (arteriosclerotic heart disease) Code(s): I25.10 - ATHSCL HEART DISEASE OF [place] CORONARY ARTERY W/O ANG PCTRS (8) Sleep apnea Code(s): G47.30 - SLEEP APNEA, UNSPECIFIED (9) Chronic kidney disease Code(s): N18.9 - CHRONIC KIDNEY DISEASE, UNSPECIFIED Assessment/Plan IMP DYSPNEA ACUTE ON CHRONIC SYSTOLIC HF CARDIOMYOPATHY ASHD PAF CKD OSAS H/O PROSTATE CA S/P PROSTATECTOMY H/O BRAIN AVM PLAN CONTINUE IV LASIX ALDACTONE O2 DAILY WTS AC MONITOR LYTES,RENAL FUNCTION SLEEP STUDY SCHEDULED FOR NEXT WEEK DR ALVAREZ Problem List - Problems (1) Acute on chronic systolic (congestive) heart failure Code(s): I50.23 - ACUTE ON CHRONIC SYSTOLIC (CONGESTIVE) HEART FAILURE (2) CHF (congestive heart failure) Code(s): I50.9 - HEART FAILURE, UNSPECIFIED Qualifiers: Heart failure type: unspecified Heart failure chronicity: acute on chronic Qualified Code(s): I50.9 - Heart failure, unspecified (3) Atrial fibrillation Code(s): I48.91 - UNSPECIFIED ATRIAL FIBRILLATION (4) Cardiomyopathy Code(s): I42.9 - CARDIOMYOPATHY, UNSPECIFIED (5) Dyspnea Code(s): R06.00 - DYSPNEA, UNSPECIFIED (6) Essential (primary) hypertension Code(s): I10 - ESSENTIAL (PRIMARY) HYPERTENSION (7) ASHD (arteriosclerotic heart disease) Code(s): I25.10 - ATHSCL HEART DISEASE OF [place] CORONARY ARTERY W/O ANG PCTRS (8) Sleep apnea Code(s): G47.30 - SLEEP APNEA, UNSPECIFIED (9) Chronic kidney disease Code(s): N18.9 - CHRONIC KIDNEY DISEASE, UNSPECIFIED
[2018-02-19] MEDS: CEFTRIAXONE 1 GM in DEXTROSE 5%-WATER - 50 ML IVPB SCH (10:41)
[2018-02-19] MEDS: ISOSORBIDE DINITRATE 20 MG TABLET (FP) PO SCH ×2 (10:41→17:12)
--- NOTE | 2018-02-19 16:35 | PN ---
Progress Note, Physician History of Present Illness: seen and examined today in nad. feeling much better today. no overnight events. - Current Medication List Current Medications: Active Medications Albuterol/Ipratropium (Duoneb -) 1 amp NEB Q4H PRN PRN Reason: SHORTNESS OF BREATH Amiodarone HCl (Cordarone -) 200 mg PO DAILY [facility] Last Admin: 02/19/18 10:40 Dose: 200 mg Apixaban (Eliquis -) 5 mg PO BID [facility] Last Admin: 02/19/18 10:40 Dose: 5 mg Furosemide (Lasix Injection -) 80 mg IVPUSH BID@0600,1400 [facility] Last Admin: 02/19/18 14:31 Dose: 80 mg Hydralazine HCl (Apresoline -) 25 mg PO BID [facility] Last Admin: 02/19/18 10:40 Dose: 25 mg Ceftriaxone Sodium 1 gm/ (Dextrose) 50 mls @ 200 mls/hr IVPB DAILY [facility]; Protocol Last Admin: 02/19/18 10:41 Dose: 200 mls/hr Isosorbide Dinitrate (Isordil -) 20 mg PO BIDISORDIL [facility] Last Admin: 02/19/18 10:41 Dose: 20 mg Metoprolol Tartrate (Lopressor -) 50 mg PO BID [facility] Spironolactone (Aldactone -) 25 mg PO DAILY [facility] Last Admin: 02/19/18 10:40 Dose: 25 mg - Objective Vital Signs: Vital Signs Temperature 98.1 F 02/19/18 13:52 Pulse Rate 61 02/19/18 13:52 Respiratory Rate 18 02/19/18 13:52 Blood Pressure 135/92 02/19/18 13:52 O2 Sat by Pulse Oximetry (%) 98 02/19/18 10:00 Constitutional: Yes: No Distress, Calm Eyes: Yes: Conjunctiva Clear, EOM Intact HENT: Yes: Atraumatic, Normocephalic Neck: Yes: Supple, Trachea Midline Cardiovascular: Yes: Regular Rate and Rhythm, Bradycardia, S1, S2. No: Tachycardia, Pulse Irregular, Bruit, JVD, Gallop, Murmur, Rub, S3, S4, Varicosities Respiratory: Yes: Regular, Diminished, Rhonchi. No: On Nasal O2, Rales, SOB Gastrointestinal: Yes: Normal Bowel Sounds, Soft. No: Distention, Tenderness Musculoskeletal: Yes: WNL Extremities: Yes: WNL Edema: Yes Edema: LLE: Trace, RLE: Trace Peripheral Pulses WNL: Yes Peripheral Pulses: Left Doralis Pedis: 2+, Right Dorsalis Pedis: 2+ Neurological: Yes: Alert, Oriented Psychiatric: Yes: Alert, Oriented Labs: CBC, BMP 02/19/18 06:45 02/19/18 06:45 INR, PTT INR 1.81 (0.82-1.09) H 02/17/18 09:47 - ....Imaging Chest X-ray: Report Reviewed, Image Reviewed EKG: Report Reviewed, Image Reviewed Other: Report Reviewed, Image Reviewed (tele-nsr, Sinus javan 50s, pvcs) Assessment/Plan 62 year old man with pmh HTN, Prostate Ca s/p prostatectomy (2007), brain AVM s/ p repair (2000), AFIB chronic systolic CHF with an echocardiogram at [facility] 12/29/17 showing an EF of 15% with moderate MR. A cardiac cath performed 12/26/17 showed non obstructive CORS with minimal luminal irregularities and elevated LVEDP admitted with weight gain, progressively worsening hayden, b/l LE edema, chest tightness. Pt seen and examined today in nad. Pt states he first noticed he had been gaining weight at home. He increased his Lasix on his own to help improve his fluid overload but did not notice a significant response and worsened over the weekend thus he came to the ER. Echo 01/28/18-Mod to sev LV systolic dysfunction, LVEF 30-35%, mod MR, mod TR, mild AR, no pericardial effusion, large pleural effusion Cath 12/26/17 [facility] nonobstructive CAD, mild luminal irreg, elevated LVEDP Acute on chronic systolic chf-NICM -improving with diuresis, bun/creat trending down -cont Lasix 80mg IV BID for 1 more day with plan to attempt to transition to po tomorrow -monitor strict I/Os, daily weights, bun/creat, electrolytes and replete as needed -cont other home cardiac CHF meds On metoprolol, spironolactone, and hydralazine/isosorbide Arb on hold and to re-eval as outpatient whether can restart -cardiac cath as above non-obst CAD -plan for optimal medical management and close outpatient f/up after discharge for consideration for ICD if LVEF does not improve with medical rx Afib-paroxysmal, currently NSR, sinus bradycardia 50s -cont amibrock ro -will downtitrate metoprolol to 50mg bid given mild bradycardia
--- NOTE | 2018-02-19 18:47 | PN ---
Progress Note, Physician History of Present Illness: feeling good - Current Medication List Current Medications: Active Medications Albuterol/Ipratropium (Duoneb -) 1 amp NEB Q4H PRN PRN Reason: SHORTNESS OF BREATH Amiodarone HCl (Cordarone -) 200 mg PO DAILY [facility] Last Admin: 02/19/18 10:40 Dose: 200 mg Apixaban (Eliquis -) 5 mg PO BID [facility] Last Admin: 02/19/18 10:40 Dose: 5 mg Furosemide (Lasix Injection -) 80 mg IVPUSH BID@0600,1400 [facility] Last Admin: 02/19/18 14:31 Dose: 80 mg Hydralazine HCl (Apresoline -) 25 mg PO BID [facility] Last Admin: 02/19/18 10:40 Dose: 25 mg Ceftriaxone Sodium 1 gm/ (Dextrose) 50 mls @ 200 mls/hr IVPB DAILY [facility]; Protocol Last Admin: 02/19/18 10:41 Dose: 200 mls/hr Isosorbide Dinitrate (Isordil -) 20 mg PO BIDISORDIL [facility] Last Admin: 02/19/18 17:12 Dose: 20 mg Metoprolol Tartrate (Lopressor -) 50 mg PO BID [facility] Spironolactone (Aldactone -) 25 mg PO DAILY [facility] Last Admin: 02/19/18 10:40 Dose: 25 mg - Objective Vital Signs: Vital Signs Temperature 98.1 F 02/19/18 13:52 Pulse Rate 61 02/19/18 13:52 Respiratory Rate 18 02/19/18 13:52 Blood Pressure 135/92 02/19/18 13:52 O2 Sat by Pulse Oximetry (%) 98 02/19/18 10:00 Constitutional: Yes: No Distress HENT: Yes: Atraumatic Neck: Yes: Supple Cardiovascular: Yes: Regular Rate and Rhythm Respiratory: Yes: CTA Bilaterally Gastrointestinal: Yes: Normal Bowel Sounds Extremities: Yes: WNL Labs: CBC, BMP 02/19/18 06:45 02/19/18 06:45 INR, PTT INR 1.81 (0.82-1.09) H 02/17/18 09:47 Problem List - Problems (1) CHF (congestive heart failure) Assessment/Plan: on iv lasix and other meds improving will switch to po tomorrow Code(s): I50.9 - HEART FAILURE, UNSPECIFIED Qualifiers: Heart failure type: unspecified Heart failure chronicity: acute on chronic Qualified Code(s): I50.9 - Heart failure, unspecified (2) Acute renal insufficiency Assessment/Plan: little better fu labs Code(s): N28.9 - DISORDER OF KIDNEY AND URETER, UNSPECIFIED (3) Essential (primary) hypertension Assessment/Plan: on meds stable Code(s): I10 - ESSENTIAL (PRIMARY) HYPERTENSION (4) ASHD (arteriosclerotic heart disease) Code(s): I25.10 - ATHSCL HEART DISEASE OF [place] CORONARY ARTERY W/O ANG PCTRS (5) Atrial fibrillation Assessment/Plan: on meds stable Code(s): I48.91 - UNSPECIFIED ATRIAL FIBRILLATION (6) Pneumonia Assessment/Plan: iv abx chest ct id on board will switch to po tomorrow Code(s): J18.9 - PNEUMONIA, UNSPECIFIED ORGANISM
--- NOTE | 2018-02-19 21:09 | PN ---
Progress Note, Physician History of Present Illness: starting to feel better ct scan done says breathing better - Current Medication List Current Medications: Active Medications Albuterol/Ipratropium (Duoneb -) 1 amp NEB Q4H PRN PRN Reason: SHORTNESS OF BREATH Amiodarone HCl (Cordarone -) 200 mg PO DAILY [facility] Last Admin: 02/19/18 10:40 Dose: 200 mg Apixaban (Eliquis -) 5 mg PO BID [facility] Last Admin: 02/19/18 10:40 Dose: 5 mg Furosemide (Lasix Injection -) 80 mg IVPUSH BID@0600,1400 [facility] Last Admin: 02/19/18 14:31 Dose: 80 mg Hydralazine HCl (Apresoline -) 25 mg PO BID [facility] Last Admin: 02/19/18 10:40 Dose: 25 mg Ceftriaxone Sodium 1 gm/ (Dextrose) 50 mls @ 200 mls/hr IVPB DAILY [facility]; Protocol Last Admin: 02/19/18 10:41 Dose: 200 mls/hr Isosorbide Dinitrate (Isordil -) 20 mg PO BIDISORDIL [facility] Last Admin: 02/19/18 17:12 Dose: 20 mg Metoprolol Tartrate (Lopressor -) 50 mg PO BID [facility] Spironolactone (Aldactone -) 25 mg PO DAILY [facility] Last Admin: 02/19/18 10:40 Dose: 25 mg - Objective Vital Signs: Vital Signs Temperature 98.0 F 02/19/18 17:00 Pulse Rate 87 02/19/18 17:00 Respiratory Rate 18 02/19/18 17:00 Blood Pressure 127/85 02/19/18 17:00 O2 Sat by Pulse Oximetry (%) 98 02/19/18 10:00 Constitutional: Yes: No Distress, Calm Cardiovascular: Yes: Regular Rate and Rhythm Respiratory: Yes: Regular, On Nasal O2, Poor Air Entry Gastrointestinal: Yes: Normal Bowel Sounds, Soft Musculoskeletal: Yes: WNL Extremities: Yes: WNL Neurological: Yes: Alert, Oriented Psychiatric: Yes: Alert, Oriented Labs: CBC, BMP 02/19/18 06:45 02/19/18 06:45 INR, PTT INR 1.81 (0.82-1.09) H 02/17/18 09:47 Assessment/Plan Problem List - Problems (1) CHF (congestive heart failure) Code(s): I50.9 - HEART FAILURE, UNSPECIFIED Qualifiers: Heart failure type: unspecified Heart failure chronicity: acute on chronic Qualified Code(s): I50.9 - Heart failure, unspecified (2) Acute renal insufficiency Code(s): N28.9 - DISORDER OF KIDNEY AND URETER, UNSPECIFIED (3) Essential (primary) hypertension Code(s): I10 - ESSENTIAL (PRIMARY) HYPERTENSION (4) ASHD (arteriosclerotic heart disease) Code(s): I25.10 - ATHSCL HEART DISEASE OF [place] CORONARY ARTERY W/O ANG PCTRS (5) Atrial fibrillation Code(s): I48.91 - UNSPECIFIED ATRIAL FIBRILLATION pneumonia pleural effusion plan continue ceftriaxone cardio on case incentive bird rest as per the team
[2018-02-20] MEDS: FUROSEMIDE 40 MG/4 ML INJECTABLE VIAL IVPUSH SCH ×2 (06:49→14:35)
[2018-02-20] MEDS ORDERED: DEXTROSE 5%-WATER - 50 ML IVPB ONE (08:43)
[2018-02-20] MEDS ORDERED: cefTRIAXone SODIUM 1 GM VIAL ONE (08:43)
[2018-02-20] MEDS: CEFTRIAXONE 1 GM in DEXTROSE 5%-WATER - 50 ML IVPB SCH (09:51)
[2018-02-20] MEDS: hydrALAZINE HCL 25 MG TABLET (FP) PO SCH (09:58)
[2018-02-20] MEDS: METOPROLOL TARTRATE 50 MG TABLET (FP) PO SCH (09:58)
[2018-02-20] MEDS: AMIODARONE HCL 200 MG TABLET (FP) PO SCH (09:58)
[2018-02-20] MEDS: APIXABAN 5 MG TABLET PO SCH (09:58)
[2018-02-20] MEDS: SPIRONOLACTONE 25 MG TABLET (FP) PO SCH (09:58)
[2018-02-20] MEDS: ISOSORBIDE DINITRATE 20 MG TABLET (FP) PO SCH ×2 (09:58→17:55)
--- NOTE | 2018-02-20 12:20 | PN ---
Progress Note, Physician Chief Complaint: No sob or chest pain Sinus on tele No events overnight - Current Medication List Current Medications: Active Medications Albuterol/Ipratropium (Duoneb -) 1 amp NEB Q4H PRN PRN Reason: SHORTNESS OF BREATH Amiodarone HCl (Cordarone -) 200 mg PO DAILY [facility] Last Admin: 02/20/18 09:58 Dose: 200 mg Apixaban (Eliquis -) 5 mg PO BID [facility] Last Admin: 02/20/18 09:58 Dose: 5 mg Furosemide (Lasix Injection -) 80 mg IVPUSH BID@0600,1400 [facility] Last Admin: 02/20/18 06:49 Dose: 80 mg Hydralazine HCl (Apresoline -) 25 mg PO BID [facility] Last Admin: 02/20/18 09:58 Dose: 25 mg Ceftriaxone Sodium 1 gm/ (Dextrose) 50 mls @ 200 mls/hr IVPB DAILY [facility]; Protocol Last Admin: 02/20/18 09:51 Dose: 200 mls/hr Isosorbide Dinitrate (Isordil -) 20 mg PO BIDISORDIL [facility] Last Admin: 02/20/18 09:58 Dose: 20 mg Metoprolol Tartrate (Lopressor -) 50 mg PO BID [facility] Last Admin: 02/20/18 09:58 Dose: 50 mg Spironolactone (Aldactone -) 25 mg PO DAILY [facility] Last Admin: 02/20/18 09:58 Dose: 25 mg - Objective Vital Signs: Vital Signs Temperature 98.4 F 02/20/18 10:00 Pulse Rate 64 02/20/18 10:00 Respiratory Rate 20 02/20/18 10:00 Blood Pressure 134/95 02/20/18 10:00 O2 Sat by Pulse Oximetry (%) 95 02/20/18 10:00 Constitutional: Yes: No Distress Neck: Yes: Supple Cardiovascular: Yes: Regular Rate and Rhythm, S1, S2 Respiratory: Yes: Diminished (decreased BS at bases b/l) Gastrointestinal: Yes: Soft Edema: LLE: Trace, RLE: Trace Labs: CBC, BMP 02/19/18 06:45 02/19/18 06:45 INR, PTT INR 1.81 (0.82-1.09) H 02/17/18 09:47 Assessment/Plan 62 year old man with pmh HTN, Prostate Ca s/p prostatectomy (2007), brain AVM s/ p repair (2000), AFIB chronic systolic CHF with an echocardiogram at [facility] 12/29/17 showing an EF of 15% with moderate MR. A cardiac cath performed 12/26/17 showed non obstructive CORS with minimal luminal irregularities and elevated LVEDP admitted with weight gain, progressively worsening hayden, b/l LE edema, chest tightness. Pt seen and examined today in nad. Pt states he first noticed he had been gaining weight at home. He increased his Lasix on his own to help improve his fluid overload but did not notice a significant response and worsened over the weekend thus he came to the ER. Echo 01/28/18-Mod to sev LV systolic dysfunction, LVEF 30-35%, mod MR, mod TR, mild AR, no pericardial effusion, large pleural effusion Cath 12/26/17 [facility] nonobstructive CAD, mild luminal irreg, elevated LVEDP Acute on chronic systolic chf-NICM -improving with diuresis, On IV furosemide. Would change to PO torsemide 50mg daily. Needs K repleted On metoprolol, spironolactone, and hydralazine/isosorbide Arb on hold and to re-eval as outpatient whether can restart -cardiac cath as above non-obst CAD -plan for optimal medical management and close outpatient f/up after discharge for consideration for ICD if LVEF does not improve with medical rx Afib-paroxysmal, currently NSR, sinus bradycardia 50s -cont amio, eliquis -cont metoprolol Outpt follow up with Dr. Martinez at [facility] 1st Floor on Saturday, February 28 at 10am [phone]
--- NOTE | 2018-02-20 12:41 | PN ---
Progress Note (short form) - Note Progress Note: Breathing feels better. NAD on RA. No CP. Intake & Output 02/17/18 02/18/18 02/19/18 02/20/18 23:59 23:59 23:59 23:59 Intake Total 200 1020 1560 740 Output Total 112 696 3527 1475 Balance 0 120 160 -735 Weight 248 lb 246 lb Last Vital Signs Temp Pulse Resp BP Pulse Ox 98.4 F 64 20 134/95 95 02/20/18 10:00 02/20/18 10:00 02/20/18 10:00 02/20/18 10:00 02/20/18 10:00 Active Medications Albuterol/Ipratropium (Duoneb -) 1 amp NEB Q4H PRN PRN Reason: SHORTNESS OF BREATH Amiodarone HCl (Cordarone -) 200 mg PO DAILY [facility] Last Admin: 02/20/18 09:58 Dose: 200 mg Apixaban (Eliquis -) 5 mg PO BID [facility] Last Admin: 02/20/18 09:58 Dose: 5 mg Furosemide (Lasix Injection -) 80 mg IVPUSH BID@0600,1400 [facility] Last Admin: 02/20/18 06:49 Dose: 80 mg Hydralazine HCl (Apresoline -) 25 mg PO BID [facility] Last Admin: 02/20/18 09:58 Dose: 25 mg Ceftriaxone Sodium 1 gm/ (Dextrose) 50 mls @ 200 mls/hr IVPB DAILY [facility]; Protocol Last Admin: 02/20/18 09:51 Dose: 200 mls/hr Isosorbide Dinitrate (Isordil -) 20 mg PO BIDISORDIL [facility] Last Admin: 02/20/18 09:58 Dose: 20 mg Metoprolol Tartrate (Lopressor -) 50 mg PO BID [facility] Last Admin: 02/20/18 09:58 Dose: 50 mg Spironolactone (Aldactone -) 25 mg PO DAILY [facility] Last Admin: 02/20/18 09:58 Dose: 25 mg Constitutional: Yes: NAD Eyes: Yes: WNL HENT: Yes: WNL Neck: Yes: WNL Cardiovascular: Yes: Regular Rate and Rhythm, S1, S2 Respiratory: Yes: Diminished Gastrointestinal: Yes: Normal Bowel Sounds, Soft Extremities: Yes: WNL Edema: No Labs: Problem List - Problems (1) Acute on chronic systolic (congestive) heart failure Code(s): I50.23 - ACUTE ON CHRONIC SYSTOLIC (CONGESTIVE) HEART FAILURE (2) CHF (congestive heart failure) Code(s): I50.9 - HEART FAILURE, UNSPECIFIED Qualifiers: Heart failure type: unspecified Heart failure chronicity: acute on chronic Qualified Code(s): I50.9 - Heart failure, unspecified (3) Atrial fibrillation Code(s): I48.91 - UNSPECIFIED ATRIAL FIBRILLATION (4) Cardiomyopathy Code(s): I42.9 - CARDIOMYOPATHY, UNSPECIFIED (5) Dyspnea Code(s): R06.00 - DYSPNEA, UNSPECIFIED (6) Essential (primary) hypertension Code(s): I10 - ESSENTIAL (PRIMARY) HYPERTENSION (7) ASHD (arteriosclerotic heart disease) Code(s): I25.10 - ATHSCL HEART DISEASE OF [place] CORONARY ARTERY W/O ANG PCTRS (8) Sleep apnea Code(s): G47.30 - SLEEP APNEA, UNSPECIFIED (9) Chronic kidney disease Code(s): N18.9 - CHRONIC KIDNEY DISEASE, UNSPECIFIED Assessment/Plan IMP DYSPNEA ACUTE ON CHRONIC SYSTOLIC HF CARDIOMYOPATHY ASHD PAF CKD OSAS H/O PROSTATE CA S/P PROSTATECTOMY H/O BRAIN AVM STABLE LLL 1.2cm SUBPLEURAL NODULE (STABLE SINCE 2013) PLAN OK TO CHANGE TO PO CEFTIN LASIX AC SLEEP STUDY NO SMOKING THERE IS NO PULMONARY CONTRAINDICATION FOR D/C DR COURTNEY
[2018-02-20 15:33] VITALS: PULSE 58
--- NOTE | 2018-02-20 16:12 | PN ---
Progress Note, Physician History of Present Illness: stable breathing well no new issues - Current Medication List Current Medications: Active Medications Albuterol/Ipratropium (Duoneb -) 1 amp NEB Q4H PRN PRN Reason: SHORTNESS OF BREATH Amiodarone HCl (Cordarone -) 200 mg PO DAILY [facility] Last Admin: 02/20/18 09:58 Dose: 200 mg Apixaban (Eliquis -) 5 mg PO BID [facility] Last Admin: 02/20/18 09:58 Dose: 5 mg Furosemide (Lasix Injection -) 80 mg IVPUSH BID@0600,1400 [facility] Last Admin: 02/20/18 14:35 Dose: Not Given Hydralazine HCl (Apresoline -) 25 mg PO BID [facility] Last Admin: 02/20/18 09:58 Dose: 25 mg Ceftriaxone Sodium 1 gm/ (Dextrose) 50 mls @ 200 mls/hr IVPB DAILY [facility]; Protocol Last Admin: 02/20/18 09:51 Dose: 200 mls/hr Isosorbide Dinitrate (Isordil -) 20 mg PO BIDISORDIL [facility] Last Admin: 02/20/18 09:58 Dose: 20 mg Metoprolol Tartrate (Lopressor -) 50 mg PO BID [facility] Last Admin: 02/20/18 09:58 Dose: 50 mg Spironolactone (Aldactone -) 25 mg PO DAILY [facility] Last Admin: 02/20/18 09:58 Dose: 25 mg - Objective Vital Signs: Vital Signs Temperature 97.8 F 02/20/18 14:00 Pulse Rate 58 L 02/20/18 14:00 Respiratory Rate 20 02/20/18 14:00 Blood Pressure 135/82 02/20/18 14:00 O2 Sat by Pulse Oximetry (%) 95 02/20/18 10:00 Constitutional: Yes: No Distress, Calm Cardiovascular: Yes: S1, S2 Respiratory: Yes: Regular, CTA Bilaterally Gastrointestinal: Yes: Normal Bowel Sounds, Soft Musculoskeletal: Yes: WNL Extremities: Yes: WNL Neurological: Yes: Alert, Oriented Psychiatric: Yes: Alert, Oriented Labs: CBC, BMP 02/19/18 06:45 02/19/18 06:45 INR, PTT INR 1.81 (0.82-1.09) H 02/17/18 09:47 Assessment/Plan Problem List - Problems (1) CHF (congestive heart failure) Code(s): I50.9 - HEART FAILURE, UNSPECIFIED Qualifiers: Heart failure type: unspecified Heart failure chronicity: acute on chronic Qualified Code(s): I50.9 - Heart failure, unspecified (2) Acute renal insufficiency Code(s): N28.9 - DISORDER OF KIDNEY AND URETER, UNSPECIFIED (3) Essential (primary) hypertension Code(s): I10 - ESSENTIAL (PRIMARY) HYPERTENSION (4) ASHD (arteriosclerotic heart disease) Code(s): I25.10 - ATHSCL HEART DISEASE OF [place] CORONARY ARTERY W/O ANG PCTRS (5) Atrial fibrillation Code(s): I48.91 - UNSPECIFIED ATRIAL FIBRILLATION pneumonia pleural effusion plan will change abx to oral augmentin 500 mg bid for 3 more days
--- NOTE | 2018-02-20 17:03 | DS ---
Physical Examination Vital Signs: Vital Signs Temperature 97.8 F 02/20/18 14:00 Pulse Rate 58 L 02/20/18 14:00 Respiratory Rate 20 02/20/18 14:00 Blood Pressure 135/82 02/20/18 14:00 O2 Sat by Pulse Oximetry (%) 95 02/20/18 10:00 Constitutional: Yes: No Distress HENT: Yes: Atraumatic Neck: Yes: Supple Cardiovascular: Yes: Regular Rate and Rhythm Respiratory: Yes: CTA Bilaterally Gastrointestinal: Yes: Normal Bowel Sounds Extremities: Yes: WNL Neurological: Yes: Alert, Oriented Labs: CBC, BMP 02/19/18 06:45 02/19/18 06:45 Discharge Summary Reason For Visit: CHF Current Active Problems ASHD (arteriosclerotic heart disease) (Acute) Acute on chronic systolic (congestive) heart failure (Acute) CHF (congestive heart failure) (Acute) Chronic kidney disease (Acute) Pneumonia (Acute) Sleep apnea (Acute) - Instructions Referrals: Víctor Shaver MD [Staff Physician] - Peña Wu MD [Primary Care Provider] - Wei Sky MD [Staff Physician] - Justin Martinez MD [Staff Physician] - Jay Encarnacion MD [Staff Physician] - - Home Medications Comprehensive Discharge Medication List: Ambulatory Orders Amiodarone HCl [Cordarone -] 200 mg PO DAILY 01/26/18 Apixaban [Eliquis] 5 mg PO BID 01/26/18 Hydralazine HCl 25 mg PO BID 01/26/18 Isosorbide Dinitrate [Isordil -] 20 mg PO BID 01/26/18 Metoprolol Tartrate [Lopressor] 100 mg PO BID 01/26/18 Spironolactone [Aldactone -] 25 mg PO DAILY 01/26/18 Furosemide [Lasix -] 80 mg PO BID #14 tablet 01/29/18 Amox-Tr/K Cl [Augmentin 500-125mg Tablet -] 1 tab PO BID@0800,1730 #6 tablet [facility]
[2018-02-20] MEDS ORDERED: PT OWN MED DRAWER 7, Y5N ONE (17:19)
[2018-02-20] MEDS ORDERED: AMOX TR/POT CLAV 500MG/125MG TABLETS (FP) PO SCH (17:30)
[2018-02-20 19:40] VITALS: BP 135/80; TEMP 98.8
== END 2018-02-20 17:55 | disposition home or self-care (01) | DRG 291 ==
LOC: JER 09:02 → JERBED 14:11 → OBSVTOIN 16:18 → J4W 17:28
PROVIDERS: ADMIT Internal Medicine; ATTEND Internal Medicine
DX: I13.0 Hypertensive heart and chronic kidney disease with heart failure and stage 1 through stage 4 chronic kidney disease, or unspecified chronic kidney disease (principal); I50.23 Acute on chronic systolic (congestive) heart failure; J18.9 Pneumonia, unspecified organism; I42.9 Cardiomyopathy, unspecified; N18.9 Chronic kidney disease, unspecified; I48.0 Paroxysmal atrial fibrillation; G47.33 Obstructive sleep apnea (adult) (pediatric); Z85.46 Personal history of malignant neoplasm of prostate; I25.10 Atherosclerotic heart disease of native coronary artery without angina pectoris; R00.1 Bradycardia, unspecified
CPT/HCPCS: 36415; 71045-TC-FY; 71250-TC; 80053; 81003; 81015; 82550; 83880; 84484; 85025; 85379; 85610; 93005; 93010; 93971-TC; 99285-25; G0378